=== PATIENT | female | born 1940 | race Caucasian/White ===

== ENCOUNTER 2017-09-07 09:35 | Inpatient (IN) | payer MEDICARE ==
[2017-09-07] VITALS (20 sets, daily range): BP systolic 92–121; BP diastolic 41–57; PULSE 86–96; RESP 18–26; TEMP 97.9–99.1; O2SAT 93–100
[~2017-09-07] VITALS: Ht 160 cm; Wt 61.2 kg
[~2017-09-07 09:35] MED LIST: ATOR40TA PO; CITRTAB8 PO; CLON.5 PO; DILT240C7 PO; ENAL5TAB PO; FISH100020 PO; GABA300C3 PO; GLIP5 PO; HYDR-3534 PO; LOSA50TA PO; OMEP20CA5 PO; PAXI10TA PO; SODI650T PO; TAMO20TA4 PO; TEMA15 PO; VITA200017 PO; [UNRECOGNIZED DRUG - CODE] PO
[2017-09-07] MEDS ORDERED: MORPHINE SULFATE 2 MG/ML INJ IV PUSH ONE (10:15)
[2017-09-07] MEDS ORDERED: ONDANSETRON HCL 4 MG/2 ML VIAL IV PUSH ONE (10:15)
--- NOTE | 2017-09-07 10:29 | PD ---
HPI Chief Complaint: Abnormal Results Time Seen by Provider: 10:01 Travel History International Travel<30 days: No Contact w/Intl Traveler<30days: No Traveled to known affect area: No History of Present Illness HPI The patient 77 and suffers with chronic anemia. Lately she has felt more fatigued than normal and her son notes pallor and that together these symptoms typically are associated with acute anemia. She has chronic bilateral lower leg pain which is again present today. Duration of acute anemia/constitutional time symptoms has been a few days. No fever. Typically blood transfusion effectively treat symptoms. She follows with Dr. Vieyra and Dr. Gomez. Patient reports most recent blood transfusion was over a year ago maybe 2 years ago. She has no abdominal pain. PFSH Past Medical History Anemia: Yes Arthritis: Yes Blood Disorders: Yes (HEREDITARY HEMOGIOTELASITIA) Anxiety: Yes Depression: No Cancer: Yes (LEFT BREAST) Cardiovascular Problems: Yes (AAA STENT) High Cholesterol: Yes Chest Pain: No Congestive Heart Failure: No Diabetes: Yes Diminished Hearing: No Endocrine: Yes Gastrointestinal Disorders: Yes (COLITIS) Genitourinary: No Headaches: Yes (OCCASIONAL HEADACHE) Hepatitis: No Hiatal Hernia: No Hypertension: Yes Immune Disorder: No Musculoskeletal: Yes ( SEVERE ARTHRITIS, FIBROMYALGIA) Neurologic: No Psychiatric: Yes (ANXIETY) Reproductive: No Respiratory: No Myocardial Infarction: No Sickle Cell Disease: No Thyroid Disease: No ?: Not : 3 Para: 2 Miscarriage: 1 Past Surgical History Abdominal Surgery: No AICD: No Appendectomy: Yes Body Medical Devices: FEMORAL STENT RIGHT ; AAA STENT Cardiac Surgery: Yes (02/01 ENDOVASCULAR AAA) Ear Surgery: No Endocrine Surgery: No Eye Surgery: Yes (LEFT CATARACT EXTRACT) Genitourinary Surgery: No Gynecologic Surgery: Yes (HYSTERECTOMY) Hysterectomy: Yes (1979) Joint Replacement: No Oral Surgery: Yes (TONSILLECTOMY) Pacemaker: No Thoracic Surgery: No Other Surgery: Yes (HEMRRHOIDECTOMY ) Social History Alcohol Use: No Tobacco Use: No Substance Use: No Allergies-Medications (Allergen,Severity, Reaction): Coded Allergies: aspirin (Unverified Adverse Reaction, Severe, GI BLEEDING, 09/07/17) diclofenac (Unverified Adverse Reaction, Severe, GI BLEED, 09/07/17) duloxetine (Unverified Adverse Reaction, Severe, SUICIDAL THOUGHTS, ) etodolac (Unverified Adverse Reaction, Severe, GI BLEED, 09/07/17) flurbiprofen (Unverified Adverse Reaction, Severe, GI BLEED, 09/07/17) ibuprofen (Unverified Adverse Reaction, Severe, GI BLEED, 09/07/17) indomethacin (Unverified Adverse Reaction, Severe, GI BLEED, 09/07/17) ketoprofen (Unverified Adverse Reaction, Severe, GI BLEED, 09/07/17) ketorolac (Unverified Adverse Reaction, Severe, GI BLEED, 09/07/17) naproxen (Unverified Adverse Reaction, Severe, GI BLEED, 09/07/17) oxaprozin (Unverified Adverse Reaction, Severe, GI BLEED, 09/07/17) Reported Meds & Prescriptions Reported Meds & Active Scripts Active Reported Hydrocodone-Acetaminophen 7.5 Mg-325 Mg Tab 1 Tab PO Q4H PRN Ambien (Zolpidem Tartrate) 5 Mg Tab 5 Mg PO HS PRN Levemir Inj (Insulin Detemir) 1,000 unit/ 10 ML Vial 14 Units SQ HS Do not mix with any other Insulin. Ditropan (Oxybutynin Chloride) 5 Mg Tab 5 Mg PO DAILY Lisinopril 5 Mg Tab 5 Mg PO HS Metformin (Metformin HCl) 500 Mg Tab 500 Mg PO BIDPC Tamoxifen (Tamoxifen Citrate) 10 Mg Tab 5 Mg PO BID Glipizide 10 Mg Tab 10 Mg PO BIDAC Take 30 minutes before a meal Paroxetine (Paroxetine HCl) 20 Mg Tab 20 Mg PO DAILY Atorvastatin (Atorvastatin Calcium) 40 Mg Tab 40 Mg PO HS Review of Systems Except as stated in HPI: all other systems reviewed are Neg General / Constitutional: No: Fever Physical Exam Narrative GENERAL: 77 yo F, WNWD, NAD, speaking in full sentences pleasant Vital Signs Date Time Temp Pulse Resp B/P (MAP) Pulse Ox O2 Delivery O2 Flow Rate FiO2 09/07/17 10:23 98 2.00 09/07/17 10:23 98 Room Air 09/07/17 09:47 99.1 94 18 116/56 (76) 96 SKIN: Minimal generalized pallor. HEAD: Atraumatic. Normocephalic. EYES: Pupils equal and round. No scleral icterus. No injection or drainage. ENT: No nasal bleeding or discharge. Mucous membranes pink and moist. NECK: Trachea midline. No JVD. CARDIOVASCULAR: Regular rate and rhythm. RESPIRATORY: No accessory muscle use. Clear to auscultation. Breath sounds equal bilaterally. GASTROINTESTINAL: Abdomen soft, non-tender, nondistended. Hepatic and splenic margins not palpable. MUSCULOSKELETAL:No sign DVT. Normal range of motion. No gross deformity. NEUROLOGICAL: Awake and alert. No obvious cranial nerve deficits. Motor grossly within normal limits. Five out of 5 muscle strength in the arms and legs. Normal speech. PSYCHIATRIC: Appropriate mood and affect; insight and judgment normal. Data Data Last Documented VS Vital Signs Date Time Temp Pulse Resp B/P (MAP) Pulse Ox O2 Delivery O2 Flow Rate FiO2 09/07/17 10:23 98 2.00 09/07/17 10:23 Room Air 09/07/17 09:47 99.1 94 18 116/56 (76) Orders Orders Complete Blood Count With Diff (09/07/17 10:03) Comprehensive Metabolic Panel (09/07/17 10:03) Prothrombin Time / Inr (Pt) (09/07/17 10:03) Act Partial Throm Time (Ptt) (09/07/17 10:03) Type And Screen (09/07/17 10:03) Ecg Monitoring (09/07/17 10:03) Iv Access Insert/Monitor (09/07/17 10:03) Oximetry (09/07/17 10:03) Sodium Chloride 0.9% Flush (Ns Flush) (09/07/17 10:15) Morphine Inj (Morphine Inj) (09/07/17 10:15) Ondansetron Inj (Zofran Inj) (09/07/17 10:15) Red Blood Cells (Rbc) (09/07/17 10:47) Sodium Chlor 0.9% 250 Ml Inj (Ns 250 Ml (09/07/17 11:00) Blood Product Administration (09/07/17 10:47) Admit Order (Ed Use Only) (09/07/17 ) Truck Trailer Mechanic / Telemetry CATRACHITO.Q8H (09/07/17 10:55) Vital Signs (Adult) Q4H (09/07/17 10:55) Activity Bed Rest (09/07/17 10:55) Notify Dr: Other (09/07/17 10:55) Labs Laboratory Tests Test 09/07/17 10:24 White Blood Count 14.9 TH/MM3 Corrected White Blood Count 12.3 TH/MM3 Red Blood Count 2.12 MIL/MM3 Hemoglobin 4.3 GM/DL Hematocrit 14.3 % Mean Corpuscular Volume 67.5 FL Mean Corpuscular Hemoglobin 20.4 PG Mean Corpuscular Hemoglobin Concent 30.2 % Red Cell Distribution Width 25.1 % Platelet Count 313 TH/MM3 Mean Platelet Volume 9.1 FL CBC Comment AUTO DIFF Differential Total Cells Counted 100 Neutrophils % (Manual) 78 % Lymphocytes % 16 % Monocytes % 5 % Eosinophils % 1 % Neutrophils # (Manual) 9.6 TH/MM3 Nucleated Red Blood Cells 21 /100 WBC Differential Comment FINAL DIFF MANUAL Platelet Estimate NORMAL Platelet Morphology Comment NORMAL Target Cells 2+ Ovalocytes 1+ Keratocytes 1+ Prothrombin Time 13.6 SEC Prothromb Time International Ratio 1.3 RATIO Activated Partial Thromboplast Time 21.5 SEC Blood Urea Nitrogen 45 MG/DL Creatinine 1.40 MG/DL Random Glucose 136 MG/DL Total Protein 7.1 GM/DL Albumin 2.7 GM/DL Calcium Level 9.1 MG/DL Alkaline Phosphatase 300 U/L Aspartate Amino Transf (AST/SGOT) 284 U/L Alanine Aminotransferase (ALT/SGPT) 209 U/L Total Bilirubin 1.3 MG/DL Sodium Level 134 MEQ/L Potassium Level 4.4 MEQ/L Chloride Level 103 MEQ/L Carbon Dioxide Level 19.5 MEQ/L Anion Gap 12 MEQ/L Estimat Glomerular Filtration Rate 37 ML/MIN MDM Medical Decision Making Medical Screen Exam Complete: Yes Emergency Medical Condition: Yes Medical Record Reviewed: Yes Differential Diagnosis Electrolyte imbalance, metabolic disarray, dehydration, acute anemia Narrative Course CBC & BMP Diagram 09/07/17 10:24 Total Protein 7.1, Albumin 2.7 L, Calcium Level 9.1, Alkaline Phosphatase 300 H , Aspartate Amino Transf (AST/SGOT) 284 H, Alanine Aminotransferase (ALT/SGPT) 209 H, Total Bilirubin 1.3 H In November, about 9 months prior, the patient's hemoglobin was 12. 2 units packed cells ordered here. Case discussed with Dr. serrano for [facility]. We will place admission under his name. The patient will be admitted for acute anemia. She is known to have a history of iron deficiency anemia per records written by Dr. Vieyra as recently as April. Despite the markedly low hemoglobin of 4.2 the patient is hemodynamically normal. There is mild transaminitis of indeterminate etiology as the patient denies abdominal pain. Patient will be admitted to the [facility] stepdown unit with telemetry for transfusion of multiple units of packed cells. Critical Care Narrative Aggregate critical care time was 35 minutes. Time to perform other separately billable procedures was not included in the critical care time. My time did not include minutes spent treating any other patients simultaneously or on activities that did not directly contribute to the patient's treatment. The services I provided to this patient were to treat and/or prevent clinically significant deterioration that could result in: Hemorrhagic shock, cardiopulmonary arrest, multiorgan injury I provided critical care services requiring my management, as noted below: Chart data review, documentation time, medication orders and management, vital sign assessments/reviewing monitor data, ordering and reviewing lab tests, ordering and interpreting/reviewing x-rays and diagnostic studies, care of the patient and discussion of the patient with the admitting physicians. Diagnosis Primary Impression: Anemia Qualified Codes: D50.9 - Iron deficiency anemia, unspecified Additional Impressions: Transaminitis Telangiectasia disorder Admitting Information Admitting Physician Requests: Josesito Colon MD Sep 07, 2017 10:29
[2017-09-07 10:32] LABS: MEAN CELL VOLUME 67.5 FL (80.0-100.0); MEAN CORPUSCULAR HEMOGLOBIN 20.4 PG (27.0-34.0); MEAN CORPUSCULAR HGB CONC 30.2 % (32.0-36.0); MEAN PLATELET VOLUME 9.1 FL (7.0-11.0); PLATELET COUNT 313 TH/MM3 (150-450); RED BLOOD COUNT 2.12 MIL/MM3 (4.00-5.30); RED CELL DISTRIBUTION WIDTH 25.1 % (11.6-17.2); WHITE BLOOD COUNT 14.9 TH/MM3 (4.0-11.0)
[2017-09-07] MEDS ORDERED: AMBI5TAB PO (10:32)
[2017-09-07] MEDS ORDERED: LEVEMIR SQ (10:32)
[2017-09-07] MEDS ORDERED: LISI-519 PO (10:32)
[2017-09-07] MEDS ORDERED: ATOR40TA16 PO (10:32)
[2017-09-07] MEDS ORDERED: PARO20TA2 PO (10:32)
[2017-09-07] MEDS ORDERED: TAMO10TA6 PO (10:32)
[2017-09-07] MEDS ORDERED: GLIP10TA6 PO (10:32)
[2017-09-07] MEDS ORDERED: OXYB5TAB8 PO (10:32)
[2017-09-07] MEDS ORDERED: METF500T PO (10:32)
[2017-09-07] MEDS ORDERED: HYDR-3580 PO (10:32)
[2017-09-07 10:34] LABS: HEMATOCRIT 14.3 % (35.0-46.0); HEMOGLOBIN 4.3 GM/DL (11.6-15.3)
[2017-09-07 10:36] LABS: CHLORIDE 103 MEQ/L (98-107); SODIUM (NA) 134 MEQ/L (136-145)
[2017-09-07 10:39] LABS: CALCIUM 9.1 MG/DL (8.5-10.1)
[2017-09-07 10:40] LABS: ALBUMIN 2.7 GM/DL (3.4-5.0); BICARBONATE 19.5 MEQ/L (21.0-32.0); BLOOD UREA NITROGEN 45 MG/DL (7-18); GLUCOSE,RANDOM 136 MG/DL (74-106); INTERNATIONAL NORMALIZED RATIO 1.3 RATIO; PROTHROMBIN TIME - PATIENT 13.6 SEC (9.8-11.6)
[2017-09-07 10:43] LABS: ALT (GPT) 209 U/L (10-53); AST (GOT) 284 U/L (15-37); GLOMERULAR FILTRATION RATE 37 ML/MIN (>89)
[2017-09-07 10:44] LABS: TOTAL BILIRUBIN ADULT 1.3 MG/DL (0.2-1.0); TOTAL PROTEIN 7.1 GM/DL (6.4-8.2)
[2017-09-07 10:46] LABS: ALKALINE PHOSPHATASE 300 U/L (45-117)
[2017-09-07] MEDS ORDERED: SODIUM CHLOR 0.9% 250 ML INJ 250 ML IV ONE (11:00)
[2017-09-07 11:04] LABS: CORRECTED NUCLEATED RBC 21 /100 WBC (0-0); CORRECTED WBC 12.3 TH/MM3 (4.0-11.0); LYMPHOCYTES 16 % (9-44); MONOCYTES 5 % (0-8); NEUTROPHIL # MANUAL DIFF 9.6 TH/MM3 (1.8-7.7); NUCLEATED RED BLOOD CELL 21 (0-0); POLYS (SEG NEUTROPHILS) 78 % (16-70)
[2017-09-07 11:05] LABS: KERATOCYTES 1+ (NORMAL); OVALOCYTES 1+ (NORMAL); TARGET CELLS 2+ (NORMAL)
[2017-09-07] MEDS ORDERED: FUROSEMIDE 20 MG/2 ML VIAL IV PRN (12:45)
--- NOTE | 2017-09-07 13:33 | MH ---
cc: DAVID GARLAND MD DATE OF ADMISSION 09/07/2017 ADMISSION DIAGNOSIS 1. Severe symptomatic hypochromic, microcytic anemia likely iron deficiency anemia. 2. Abnormal liver function tests probably secondary to her statin drug. 3. She has type 2 diabetes mellitus with diabetic nephropathy. 4. Peripheral artery disease with prior INDUSTRIAL RADIOGRAPHER and stenting of the right common iliac artery in 2009. 5. Prior proximal left SFA stenosis. 6. Hereditary hemorrhagic telangiectasia ([id number]). 7. Hypertension e 8. Hyperlipidemia 9. Stage III chronic kidney disease. 10. History of prior abdominal aortic aneurysm with endovascular graft stent repair on 01/2010. 11. Fibromyalgia 12. Osteoporosis 13. Prior history of ulcerative colitis. 14. History of colon polyps. 15. Osteoarthritis 16. Irritable bowel syndrome 17. History of prior anemias with transfusions in the past that has been followed by Dr. Vieyra. 18. Anxiety 19. Depression 20. History of breast cancer on tamoxifen therapy. This involved the left breast in the past with lumpectomy in 2011 and radiation therapy on tamoxifen therapy. 21. Atherosclerosis of the aorta. 22. Vitamin D deficiency PERTINENT HISTORY This is a 77-year-old white female who came to the emergency room because she has been feeling weaker especially over the last week. Her son noted her to be a little more pale. She has had anemia in the past and has had blood transfusions, but it has been a little over a year since her last blood transfusion. She has been followed by a web merchant, Dr. Vieyra. She denied any actual shortness of breath. No chest pain, just generally weaker when she would walk. She has not had any blood in her stools that she is visibly seeing or black stools. Her stools have been brown. She has had no vomiting or abdominal pain or hematemesis. When she came in the ED, her hemoglobin was low at 4.3 low red cell indices. She is admitted for a blood transfusion. MEDICAL HISTORY As mentioned she has: 1. Type 2 diabetes mellitus with diabetic nephropathy. 2. She has hypertension. 3. Hyperlipidemia 4. Fibromyalgia 5. Anxiety 6. Depression 7. Peripheral artery disease 8. Hereditary hemorrhagic telangiectasia. 9. She has chronic pain and fibromyalgia and osteoarthritis. 10. Irritable bowel syndrome. 11. History of colon polyps. 12. She has had a pancreatic cyst noted on prior imaging. 13. She had breast cancer involving the left breast. 14. Atherosclerosis of the aorta. 15. Vitamin D deficiency. 16. She has had gout in the past. 17. She had degenerative disk disease of her cervical spine. 18. She has had prior anemia. She has osteoarthritis. 19. She has had ulcerative colitis in the past. 20. She has had no heart attack or angina. 21. She had some mitral regurgitation on prior echo. 22. She has had no chronic lung disease, liver disease, thyroid disease or peptic ulcer disease. No stroke or seizure. 23. She has had abdominal aortic aneurysm as mentioned that was repaired endovascularly. 24. She has had macular degeneration in both eyes. 25. She has had a history of herpes zoster and colon polyps. PAST SURGICAL HISTORY 1. She has had an appendectomy. 2. She had a left breast biopsy 02/1912. 3. Bilateral cataract extraction with lens implant. 4. Colonoscopy on 08/22/2007 showed tubular adenoma and erythema throughout the colon. 5. She had the colonoscopy 09/02/2010 that showed colitis. 6. EGD on 09/02/2010 showed gastritis. 7. She has had endovascular repair of the abdominal aortic aneurysm. 8. She has had a hemorrhoidectomy. 9. She has had left breast lumpectomy 04/29/2012. 10. She had a INDUSTRIAL RADIOGRAPHER with stent of the right common iliac. 11. She has had a LUPE and BSO. ALLERGIES CYMBALTA, ASPIRIN AND NSAID's. MEDICATIONS 1. Atorvastatin 40 mg a day 2. Citracal calcium plus D one a day 3. Glipizide 5 mg tablet two twice a day 4. Hydrocodone/acetaminophen 7.5/325 one tablet generally twice a day. 5. Lisinopril 5 mg a day 6. Levemir insulin 8 units at bedtime 7. Metformin 500 mg twice a day 8. Oxybutynin extended release 5 mg a day 9. Paroxetine 20 mg one a day 10. Vitamin D 5000 units a day FAMILY HISTORY Her dad at 86. Mother at 89 of lung cancer. SOCIAL HISTORY She is . She used to work as a teacher. She had quit smoking in 1999 smoked a half-a-pack a day for 20 years prior then, but her son, who is with her today, states he buys her a pack of cigarettes a day now. She apparently has been doing this over the last year. She does not use alcohol. REVIEW OF SYSTEMS GENERAL: With just the generalized weakness. No fever, chills or sweats. HEENT: Without complaints. CARDIOVASCULAR: No chest pain, orthopnea, PND. PULMONARY: No cough, hemoptysis or wheezing. Denies shortness of breath. GI: Has no melena, rectal bleeding, constipation, or diarrhea. No heartburn or ingestion. : She gets some incontinence at times. No dysuria or hematuria. EXTREMITIES: She has had no swelling. No pain in her legs at rest, but in the last few days when she would walk, she would get a little pain in her legs. NEUROLOGIC: Without any motor weakness, sensory loss or confusion. PSYCHIATRIC: Stable. SKIN: Without rash. EXAMINATION This is a pleasant white female in no apparent distress. She is a little pale-appearing. Her O2 sat is 96%, BP 116/56, respirations 18, pulse 94, temperature 99.1. HEENT: TMs clear. Pupils equal. Sclerae nonicteric. Nose without lesion. Mouth without inflammation or lesion. NECK: Without JVD. No bruit. HEART: Regular rate and rhythm with a grade 1/6 systolic murmur in the aortic region. LUNGS: Clear. ABDOMEN: Soft, nontender, no mass. EXTREMITIES: No edema. Pulses 1-1/2+ both feet. SKIN: Negative. NEUROLOGIC: Oriented x3. Motor strength symmetrical, sensation intact. ASSESSMENT As noted. PLAN We will stop her atorvastatin since it is likely causing her elevated liver enzymes. We ordered an iron and TIBC level, but it looks like she probably has iron-deficiency. We will consult her web merchant, Dr. Vieyra. We have gone ahead and ordered four units of packed red blood cells. We will give her SCD's and ARACELIS douglass for DVT prophylaxis. MD LEANDRA Campa/ALONDRA /12:49 PM /1:07 PM
[2017-09-07] MEDS ORDERED: PILL SPLITTER OTHER PRN (15:00)
[2017-09-07] MEDS: glipiZIDE 10 MG TAB PO SCH (16:57)
[2017-09-07 17:25] LABS: % SATURATION IRON PROFILE 2.7 % (20-50); IRON (FE) 10 MCG/DL (50-170); TOTAL IRON BINDING CAPACITY 377 MCG/DL (250-450)
[2017-09-07] MEDS: FOLIC ACID 1 MG TAB PO SCH (18:17)
[2017-09-07] MEDS ORDERED: GLUCAGON 1 MG/ML VIAL OTHER PRN (18:30)
[2017-09-07] MEDS ORDERED: DEXTROSE 50% IN WATER 50 ML VIAL(D50) IV PUSH PRN (18:30)
--- NOTE | 2017-09-07 18:57 | MB ---
cc: ANDRAE GAUTAM DONALD G. MD DATE OF CONSULTATION: 09/07/2017 REASON FOR CONSULTATION: DATE OF : 1940 REFERRING PHYSICIAN: Dr. Jose Muro. CHIEF COMPLAINT: Dr. Muro requested consultation for Ms. Altamirano regarding history of hereditary telangiectasia associated with iron deficiency. HISTORY OF PRESENT ILLNESS Mrs. Altamirano is a 77-year-old woman well-known patient with hereditary telangiectasia recently . She was also seen in hematology clinic for stage I low ER positive breast cancer on adjuvant hormonal therapy with tamoxifen. She was last seen April 16, 2017. Her main problem was associated to her hyperglycemia, poor diabetes, controlled. Her previous labs from November showed normal CBC and a low normal ferritin. She denies any bleeding. She reports feeling well until several weeks prior to her presentation. She was having some back pain and neck pain. She has some achiness, denies any fevers. She has lost some weight. She attributes that to the difficulty in the diabetic control. She is on insulin now. She denies any melena or bright red blood per rectum. She has no GI symptoms. She said that she will refuse a colonoscopy. She is certain that she does not have any GI blood loss. She has not been taking any NSAIDs or aspirin. The rest of her review of systems is negative. She is feeling weak and was brought in by her son. She was found to have a hemoglobin of 4.3. She was otherwise hemodynamically stable. Her white count is elevated at 14.9, platelet count is normal. Iron studies are consistent with iron deficiency with a saturation of 2.7, serum iron of 10. Ferritin is pending. Her BUN and creatinine are increased. Glucose is better controlled at 136. There is new liver function abnormality with a bilirubin of 1.3. LDH has been requested. She denies any alcohol use. She is receiving her first unit of blood. She was found to have positive antibody screen. She has anti-c antibody. She has four units of blood reserved for her. She is tolerating the first unit of blood well. PAST MEDICAL HISTORY: 1. Hereditary telangiectasia. 2. ER positive left breast cancer. 3. Iron deficiency anemia. 4. Fibromyalgia. 5. Hemorrhoids. 6. Depression. 7. Chronic renal insufficiency. 8. Anxiety. 9. Arthritis. PAST SURGICAL HISTORY: 1. Appendectomy. 2. Hysterectomy. 3. Tonsillectomy. 4. Left breast lumpectomy, sentinel node biopsy. 5. Colonoscopy. ALLERGIES: ASPIRIN. CYMBALTA FAMILY HISTORY: Mother age 89, history of lung cancer, and of the lung cancer. Father age 86 with an aneurysm. SOCIAL HISTORY She is . Quit smoking 10 years ago. She has a 20 pack-year smoking history. Denies any alcohol use. PHYSICAL EXAMINATION VITAL SIGNS: Temperature 98.1, heart rate 90, respiratory 21, blood pressure 109/53. GENERAL: Mrs. Altamirano is a pale-appearing well-developed woman who looks thinner than previous exam. HEENT: Her pupils are round, reactive to light and accommodation. Oropharynx is clear. NECK: Neck is supple. LUNGS: Lungs were clear. CARDIOVASCULAR: Exam reveals normal rate, rhythm. ABDOMEN: Abdomen is benign. EXTREMITIES: Lower extremities with no edema. NEUROLOGIC: Exam is nonfocal. She is awake, alert, oriented x3. LABORATORY DATA: Significant for leukocytosis, white blood cell count 14.9, hemoglobin of 4.3. LDH is pending. AST/ALT are elevated. Alkaline phosphatase is elevated. Total bilirubin 1.3. ASSESSMENT AND PLAN: Mrs. Altamirano is a 77 year-old woman with hereditary telangiectasia and history of GI bleeding. She had subsequent iron deficiency that was treated. She is also followed in the hematology clinic for stage I, low ER positive breast cancer. She is on adjuvant hormonal therapy with tamoxifen. She has had no evidence of recurrence in terms of her breast cancer. We discussed the possible GI bleeding. It is not clear what the precipitating event was. I suspect that her iron stores were low back in November. There has been progressive loss of iron which resulted in a hemoglobin of 4.3. She tolerated a slow decrease in her hemoglobin and suggests that the iron loss is gradual. LDH and reticulocyte count will be checked. She describes myalgias, arthralgias, back pain. Will review if this is exanthem or manifestation of such. I concur with supportive transfusion. She is being transfused her first unit of blood. Historically she has responded to iron infusion in the past. Will try to see if we could avoid second, third and fourth unit of blood. It is available for her should it be necessary. She is hemodynamically stable and I anticipate that she would respond promptly to parenteral iron therapy which is ordered tonight. To optimize the hematopoiesis, B12, folate is also administered. Will monitor for any signs of bleeding. Ultrasound of the liver will be obtained. Bilirubin comprehensive panel will be checked. Interested to review the liver as the albumin is decreased. The liver functions are elevated. There is some mild prolongation of her PT. Her questions are answered to her satisfaction. Andrae Gautam MD RAD/KANDY /6:03 PM /6:29 PM
[2017-09-07 19:53] LABS: FERRITIN 15 NG/ML (8-252)
[2017-09-07] MEDS: IRON SUCROSE INJ 100 MG in SODIUM CHLORIDE 0.9% INJ 100 ML IV SCH (19:53)
[2017-09-07] MEDS ORDERED: CYANOCOBALAMIN 1000 MCG/ML VIAL SQ ONE (20:00)
[2017-09-07] MEDS: INSULIN NovoLIN REGULAR SUPPLEMENTAL SCALE SQ SCH (20:05)
[2017-09-07] MEDS: INSULIN DETEMIR 100 UNITS/ML VIAL SQ SCH (20:06)
[2017-09-07] MEDS: LISINOPRIL 5 MG TAB PO SCH (20:06)
[2017-09-07] MEDS: PHYTONADIONE 5 MG TAB PO SCH (20:46)
[2017-09-07] MEDS ORDERED: TAMOXIFEN CITRATE 10 MG TAB PO SCH (21:00)
[2017-09-07] MEDS: ACETAMINOPHEN/HYDROcodone 325 MG/7.5 MG TAB PO PRN (22:57)
[2017-09-08] VITALS (24 sets, daily range): BP systolic 90–127; BP diastolic 45–81; PULSE 82–91; RESP 17–28; TEMP 97.7–98.7; O2SAT 95–99
[2017-09-08 05:28] LABS: CALCIUM 8.6 MG/DL (8.5-10.1)
[2017-09-08 05:29] LABS: ALBUMIN 2.7 GM/DL (3.4-5.0); BICARBONATE 23.6 MEQ/L (21.0-32.0)
[2017-09-08 05:31] LABS: DIRECT BILIRUBIN ADULT 0.6 MG/DL (0.0-0.2)
[2017-09-08 05:32] LABS: CREATININE 1.5 MG/DL (0.50-1.00)
[2017-09-08 05:33] LABS: INDIRECT BILIRUBIN 0.4 MG/DL (0.0-0.8)
[2017-09-08 05:35] LABS: MEAN CELL VOLUME 71.3 FL (80.0-100.0); MEAN CORPUSCULAR HEMOGLOBIN 20.9 PG (27.0-34.0); MEAN PLATELET VOLUME 11.6 FL (7.0-11.0); PLATELET COUNT 350 TH/MM3 (150-450); RED BLOOD COUNT 2.71 MIL/MM3 (4.00-5.30); RED CELL DISTRIBUTION WIDTH 24.5 % (11.6-17.2); WHITE BLOOD COUNT 17.4 TH/MM3 (4.0-11.0)
[2017-09-08 05:36] LABS: MEAN CORPUSCULAR HGB CONC 29.3 % (32.0-36.0)
[2017-09-08 05:38] LABS: HEMATOCRIT 19.3 % (35.0-46.0); HEMOGLOBIN 5.7 GM/DL (11.6-15.3)
--- NOTE | 2017-09-08 06:59 | HHI.PR ---
Subjective Remarks No abdominal pain. No shortness of breath. Seen by hematology and is giving iron infusions primarily to correct her anemia. One unit of blood given yesterday. Objective Vitals Vital Signs Date Time Temp Pulse Resp B/P (MAP) Pulse Ox O2 Delivery O2 Flow Rate FiO2 09/08/17 06:19 90 09/08/17 04:00 88 09/08/17 03:00 97.7 86 17 99/45 (63) 97 09/08/17 03:00 89 09/08/17 02:00 86 09/08/17 00:00 84 09/08/17 00:00 16 09/07/17 23:35 91 25 101/52 (68) 93 09/07/17 23:19 92 09/07/17 22:30 94 23 104/48 (66) 97 09/07/17 21:00 93 09/07/17 20:32 96 09/07/17 19:22 98.3 86 26 105/52 (69) 09/07/17 19:00 90 09/07/17 18:00 86 09/07/17 17:00 88 09/07/17 16:00 88 09/07/17 15:50 98.1 90 21 109/53 (71) 09/07/17 15:45 97.9 92 25 95/46 (62) 99 09/07/17 15:40 90 25 92/41 (58) 09/07/17 15:35 98.5 88 19 102/50 (67) 99 09/07/17 15:00 90 09/07/17 14:00 86 09/07/17 12:00 88 09/07/17 11:41 98.3 90 18 121/57 (78) 100 09/07/17 11:41 91 09/07/17 10:23 98 2.00 09/07/17 10:23 98 Room Air 09/07/17 09:47 99.1 94 18 116/56 (76) 96 Result Diagram: 09/08/1742109/08/17421 Other Results Laboratory Tests Test 09/07/17 10:24 09/08/17 04:22 White Blood Count 14.9 TH/MM3 17.4 TH/MM3 Corrected White Blood Count 12.3 TH/MM3 Red Blood Count 2.12 MIL/MM3 2.71 MIL/MM3 Hemoglobin 4.3 GM/DL 5.7 GM/DL Hematocrit 14.3 % 19.3 % Mean Corpuscular Volume 67.5 FL 71.3 FL Mean Corpuscular Hemoglobin 20.4 PG 20.9 PG Mean Corpuscular Hemoglobin Concent 30.2 % 29.3 % Red Cell Distribution Width 25.1 % 24.5 % Platelet Count 313 TH/MM3 350 TH/MM3 Mean Platelet Volume 9.1 FL 11.6 FL CBC Comment AUTO DIFF AUTO DIFF Differential Total Cells Counted 100 Neutrophils % (Manual) 78 % Lymphocytes % 16 % Monocytes % 5 % Eosinophils % 1 % Neutrophils # (Manual) 9.6 TH/MM3 Nucleated Red Blood Cells 21 /100 WBC Differential Comment FINAL DIFF MANUAL Platelet Estimate NORMAL Platelet Morphology Comment NORMAL Target Cells 2+ Ovalocytes 1+ Keratocytes 1+ Prothrombin Time 13.6 SEC Prothromb Time International Ratio 1.3 RATIO Activated Partial Thromboplast Time 21.5 SEC Blood Urea Nitrogen 45 MG/DL 51 MG/DL Creatinine 1.40 MG/DL 1.50 MG/DL Random Glucose 136 MG/DL 54 MG/DL Total Protein 7.1 GM/DL 7.0 GM/DL Albumin 2.7 GM/DL 2.7 GM/DL Calcium Level 9.1 MG/DL 8.6 MG/DL Alkaline Phosphatase 300 U/L 363 U/L Aspartate Amino Transf (AST/SGOT) 284 U/L 462 U/L Alanine Aminotransferase (ALT/SGPT) 209 U/L 322 U/L Total Bilirubin 1.3 MG/DL 1.0 MG/DL Sodium Level 134 MEQ/L 133 MEQ/L Potassium Level 4.4 MEQ/L 3.8 MEQ/L Chloride Level 103 MEQ/L 103 MEQ/L Carbon Dioxide Level 19.5 MEQ/L 23.6 MEQ/L Anion Gap 12 MEQ/L 6 MEQ/L Estimat Glomerular Filtration Rate 37 ML/MIN 34 ML/MIN Iron Level 10 MCG/DL Total Iron Binding Capacity 377 MCG/DL Percent Iron Saturation 2.7 % Ferritin 15 NG/ML Lactate Dehydrogenase 673 U/L Direct Bilirubin 0.6 MG/DL Indirect Bilirubin 0.4 MG/DL Objective Remarks Exam: Pleasant female in no distress. 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 An ultrasound of the abdomen ordered for today. Continue SCD's/ARACELIS's for DVT prophylaxis. Monitor her blood sugar. Her Atorvastatin was stopped on admission because of elevated liver enzymes. Jose Muro MD Sep 08, 2017 06:59
[2017-09-08] MEDS: glipiZIDE 10 MG TAB PO SCH ×2 (07:00→17:07)
[2017-09-08 07:23] LABS: CORRECTED NUCLEATED RBC 30 /100 WBC (0-0); CORRECTED WBC 13.4 TH/MM3 (4.0-11.0); KERATOCYTES 1+ (NORMAL); LYMPHOCYTES 14 % (9-44); MONOCYTES 6 % (0-8); NEUTROPHIL # MANUAL DIFF 10.6 TH/MM3 (1.8-7.7); NUCLEATED RED BLOOD CELL 30 (0-0); OVALOCYTES 1+ (NORMAL); POLYS (SEG NEUTROPHILS) 79 % (16-70); TARGET CELLS 2+ (NORMAL)
[2017-09-08] MEDS: INSULIN NovoLIN REGULAR SUPPLEMENTAL SCALE SQ SCH ×4 (08:00→19:55)
[2017-09-08] MEDS ORDERED: diphenhydrAMINE HCL 25 MG CAP PO PRN (08:15)
[2017-09-08] MEDS: PARoxetine HCL 20 MG TAB PO SCH (08:37)
[2017-09-08] MEDS: OXYBUTYNIN CHLORIDE 5 MG TAB PO SCH (08:37)
[2017-09-08] MEDS: FOLIC ACID 1 MG TAB PO SCH (08:37)
--- NOTE | 2017-09-08 09:10 | RADRPT ---
EXAM DATE/TIME: 09/08/2017 08:18 [facility] COMPARISON: No previous studies available for comparison. INDICATIONS : Elevated liver function tests. MEDICAL HISTORY : AAA. Colitis. GERD. IBS. Arthritis. Fibromyalgia. Hemogiotelesitia. Hemorrhagic Telangiectasia. Left breast cancer. SURGICAL HISTORY : Appendectomy. Hysterectomy. Tonsillectomy. AAA stent. Right femoral stent. ENCOUNTER: Initial ACUITY: 1 day PAIN SCORE: 0/10 LOCATION: Bilateral upper quadrant MEASUREMENTS: LIVER: 15.7 cm length COMMON DUCT: 5 mm RIGHT KIDNEY: 10.7 x 5.1 x 4.8 cm SPLEEN: not visualized. cm length FINDINGS: LIVER: Mild diffusely increased hepatic echogenicity without volume loss, mass or intrahepatic ductal dilata tion. COMMON DUCT: No intraluminal mass or stone visualized. GALLBLADDER: Subtle gallbladder wall prominence with very trace pericholecystic fluid. No stones or sonographic Mu rphy sign. PANCREAS: The visualized portions are within normal limits. RIGHT KIDNEY: Slight increased cortical echogenicity. No hydronephrosis, mass or stone. SPLEEN: No focal lesion. CONCLUSION: 1. Mildly increased diffuse hepatic echogenicity without volume loss which may reflect medical liver disease versus hepatic steatosis. 2. Mild gallbladder wall thickening with very trace pericholecystic fluid. This can be routinely seen in patients with chronic liver disease although this reduces ultrasound sensitivity for early acute cholecystitis. If there is significant concern regarding acute cholecystitis, consider HIDA scan to e valuate for cystic duct patency. 3. Slight increased right renal cortical echogenicity which may reflect medical renal disease. Liu Gregorio MD on September 08, 2017 at 9:03 Board Certified Radiologist. This report was verified electronically.
[2017-09-08 09:51] LABS: RETIC # 91.3 MIL/L (20.0-150.0); RETIC % 3.6 % (0.4-3.0)
[2017-09-08] MEDS: PHYTONADIONE 5 MG TAB PO SCH (09:52)
[2017-09-08] MEDS: ACETAMINOPHEN/HYDROcodone 325 MG/7.5 MG TAB PO PRN ×2 (12:07→21:39)
[2017-09-08 14:58] LABS: HEMATOCRIT 22.9 % (35.0-46.0); HEMOGLOBIN 7.2 GM/DL (11.6-15.3)
--- NOTE | 2017-09-08 17:41 | PD.ONC.PN ---
Subjective Subjective Remarks i am feeling better. denies any bleeding Objective Data Date Time Temp Pulse Resp B/P (MAP) Pulse Ox O2 Delivery O2 Flow Rate FiO2 09/08/17 14:58 87 20 95/50 (65) 99 09/08/17 14:00 89 09/08/17 13:07 18 09/08/17 12:00 86 09/08/17 11:00 106/54 (71) 09/08/17 10:30 116/81 (93) 09/08/17 10:00 87 09/08/17 09:45 98.5 91 28 109/58 95 09/08/17 09:30 98.5 85 20 95/66 95 09/08/17 09:12 98.7 88 20 127/57 95 09/08/17 09:07 97 Nasal Cannula 2.00 09/08/17 08:00 89 09/08/17 07:00 98.7 88 20 127/57 (80) 95 09/08/17 06:19 90 09/08/17 04:00 88 09/08/17 03:00 97.7 86 17 99/45 (63) 97 09/08/17 03:00 89 09/08/17 02:00 86 09/08/17 00:00 84 09/07/17 23:35 91 25 101/52 (68) 93 09/07/17 23:19 92 09/07/17 22:30 94 23 104/48 (66) 97 09/07/17 21:00 93 09/07/17 20:32 96 09/07/17 19:22 98.3 86 26 105/52 (69) 09/07/17 19:00 90 09/07/17 18:00 86 09/08/17 09/08/17 09/08/17 07:00 15:00 23:00 Intake Total 600 ml Balance 600 ml Result Diagram: 09/08/17 1350 09/08/17 7192 Laboratory Results Laboratory Tests Test 09/08/17 04:22 09/08/17 13:50 White Blood Count 17.4 TH/MM3 Corrected White Blood Count 13.4 TH/MM3 Red Blood Count 2.71 MIL/MM3 Hemoglobin 5.7 GM/DL 7.2 GM/DL Hematocrit 19.3 % 22.9 % Mean Corpuscular Volume 71.3 FL Mean Corpuscular Hemoglobin 20.9 PG Mean Corpuscular Hemoglobin Concent 29.3 % Red Cell Distribution Width 24.5 % Platelet Count 350 TH/MM3 Mean Platelet Volume 11.6 FL CBC Comment AUTO DIFF Differential Total Cells Counted 100 Neutrophils % (Manual) 79 % Lymphocytes % 14 % Monocytes % 6 % Eosinophils % 1 % Neutrophils # (Manual) 10.6 TH/MM3 Nucleated Red Blood Cells 30 /100 WBC Differential Comment FINAL DIFF MANUAL Platelet Estimate NORMAL Platelet Morphology Comment NORMAL Target Cells 2+ Ovalocytes 1+ Keratocytes 1+ Reticulocyte Count 3.6 % Absolute Reticulocyte Count 91.3 MIL/L Blood Urea Nitrogen 51 MG/DL Creatinine 1.50 MG/DL Random Glucose 54 MG/DL Total Protein 7.0 GM/DL Albumin 2.7 GM/DL Calcium Level 8.6 MG/DL Alkaline Phosphatase 363 U/L Aspartate Amino Transf (AST/SGOT) 462 U/L Alanine Aminotransferase (ALT/SGPT) 322 U/L Total Bilirubin 1.0 MG/DL Direct Bilirubin 0.6 MG/DL Sodium Level 133 MEQ/L Potassium Level 3.8 MEQ/L Chloride Level 103 MEQ/L Carbon Dioxide Level 23.6 MEQ/L Anion Gap 6 MEQ/L Estimat Glomerular Filtration Rate 34 ML/MIN Indirect Bilirubin 0.4 MG/DL Imaging Studies Last 24 hours Impressions Liver Ultrasound 09/08/17 0600 Signed Impressions: Service Date/Time: Friday, September 08, 2017 08:18 - CONCLUSION: 1. Mildly increased diffuse hepatic echogenicity without volume loss which may reflect medical liver disease versus hepatic steatosis. 2. Mild gallbladder wall thickening with very trace pericholecystic fluid. This can be routinely seen in patients with chronic liver disease although this reduces ultrasound sensitivity for early acute cholecystitis. If there is significant concern regarding acute cholecystitis, consider HIDA scan to evaluate for cystic duct patency. 3. Slight increased right renal cortical echogenicity which may reflect medical renal disease. Liu Gregorio MD Administered Medications Medications (Trade) Dose Ordered Sig/Fatoumata Route PRN Reason Start Time Stop Time Status Last Admin Dose Admin Glipizide (Glucotrol) 10 mg BIDAC PO 09/07/17 16:00 09/08/17 17:07 Acetaminophen/ Hydrocodone Bitart (Lamar 7.5-325 Mg) 1 tab Q4H PRN PO PAIN SCALE 1 TO 10 09/07/17 12:45 09/08/17 12:07 Insulin Detemir (Levemir Inj) 8 units HS SQ 09/07/17 21:00 09/07/17 20:06 Lisinopril (Prinivil) 5 mg HS PO 09/07/17 21:00 09/07/17 20:06 Oxybutynin Chloride (Ditropan) 5 mg DAILY PO 09/08/17 09:00 09/08/17 08:37 Paroxetine HCl (Paxil) 20 mg DAILY PO 09/08/17 09:00 09/08/17 08:37 Iron Sucrose 100 mg/Sodium Chloride 105 ml @ 105 mls/hr DAILY@1999 IV 09/07/17 20:00 09/09/17 20:59 09/07/17 19:53 Folic Acid (Folate) 1 mg DAILY PO 09/07/17 19:00 09/08/17 08:37 Phytonadione (Mephyton) 5 mg DAILY PO 09/07/17 20:00 09/09/17 09:01 09/08/17 09:52 Insulin Human Regular (NovoLIN R SUPPLEMENTAL SCALE) 1 ACHS SLIDING SCALE SQ 09/07/17 21:00 09/08/17 12:13 Objective Remarks GENERAL: Well-nourished, well-developed patient. SKIN: Warm and dry. HEAD: Normocephalic. EYES: No scleral icterus. No injection or drainage. NECK: Supple, trachea midline. No JVD or lymphadenopathy. LYMPHATIC: No adenopathy. CARDIOVASCULAR: Regular rate and rhythm without murmurs. RESPIRATORY: Breath sounds equal bilaterally. No accessory muscle use. GASTROINTESTINAL: Abdomen soft, non-tender, nondistended. EXTREMITIES: No cyanosis, or edema. NEUROLOGICAL: No obvious focal deficit. Awake, alert, and oriented x3. PSYCHIATRIC: Appropriate mood and affect; insight and judgment normal. Assessment/Plan Problem List: (1) Anemia ICD Codes: D64.9 - Anemia, unspecified Status: Acute Plan: Pt has Iron Def Anemia. Ferritin 15 Pt had so far 3 units of PRBC She is on daily iron sucrose x 3 days monitor cbc daily. will follow (2) Telangiectasia disorder ICD Codes: I78.9 - Disease of capillaries, unspecified Status: Acute Plan: observe Problem Qualifiers (1) Anemia: Qualified Codes: D50.9 - Iron deficiency anemia, unspecified Riley Alicia MD Sep 08, 2017 17:41
[2017-09-08] MEDS: IRON SUCROSE INJ 100 MG in SODIUM CHLORIDE 0.9% INJ 100 ML IV SCH (19:55)
[2017-09-08] MEDS: INSULIN DETEMIR 100 UNITS/ML VIAL SQ SCH (19:55)
[2017-09-08] MEDS: LISINOPRIL 5 MG TAB PO SCH (19:55)
[2017-09-09] VITALS (14 sets, daily range): BP systolic 89–128; BP diastolic 40–60; PULSE 62–110; RESP 14–31; TEMP 98–99; O2SAT 95–98
[2017-09-09 05:00] LABS: HEMATOCRIT 24.4 % (35.0-46.0); HEMOGLOBIN 7.4 GM/DL (11.6-15.3); MEAN CELL VOLUME 75.5 FL (80.0-100.0); MEAN CORPUSCULAR HEMOGLOBIN 22.9 PG (27.0-34.0); MEAN CORPUSCULAR HGB CONC 30.4 % (32.0-36.0); MEAN PLATELET VOLUME 11.7 FL (7.0-11.0); PLATELET COUNT 350 TH/MM3 (150-450); RED BLOOD COUNT 3.23 MIL/MM3 (4.00-5.30); RED CELL DISTRIBUTION WIDTH 24.4 % (11.6-17.2); WHITE BLOOD COUNT 16.5 TH/MM3 (4.0-11.0)
[2017-09-09 05:11] LABS: CALCIUM 8.3 MG/DL (8.5-10.1)
[2017-09-09 05:12] LABS: ALBUMIN 2.4 GM/DL (3.4-5.0); BICARBONATE 23.1 MEQ/L (21.0-32.0)
[2017-09-09 05:24] LABS: CREATININE 1.1 MG/DL (0.50-1.00); DIRECT BILIRUBIN ADULT 0.4 MG/DL (0.0-0.2); INDIRECT BILIRUBIN 0.4 MG/DL (0.0-0.8); TOTAL BILIRUBIN ADULT 0.8 MG/DL (0.2-1.0); TOTAL PROTEIN 6.7 GM/DL (6.4-8.2)
[2017-09-09 05:39] LABS: CORRECTED NUCLEATED RBC 20 /100 WBC (0-0); CORRECTED WBC 13.8 TH/MM3 (4.0-11.0); LYMPHOCYTES 13 % (9-44); MONOCYTES 7 % (0-8); NEUTROPHIL # MANUAL DIFF 10.8 TH/MM3 (1.8-7.7); NUCLEATED RED BLOOD CELL 20 (0-0); POLYS (SEG NEUTROPHILS) 78 % (16-70)
--- NOTE | 2017-09-09 06:31 | HHI.PR ---
Subjective Remarks No complaints. Objective Vitals Vital Signs Date Time Temp Pulse Resp B/P (MAP) Pulse Ox O2 Delivery O2 Flow Rate FiO2 09/09/17 06:05 68 09/09/17 04:00 62 09/09/17 03:15 80 23 114/54 (74) 96 09/09/17 03:10 78 14 89/40 (56) 95 09/09/17 02:05 74 09/09/17 00:20 98.6 82 22 108/55 (72) 95 09/09/17 00:06 82 09/08/17 23:10 82 24 108/55 (72) 09/08/17 22:59 16 09/08/17 22:17 84 09/08/17 21:57 86 26 117/56 (76) 98 09/08/17 20:05 87 09/08/17 19:33 84 09/08/17 19:10 86 22 94/46 (62) 98 09/08/17 16:00 88 09/08/17 14:58 87 20 95/50 (65) 99 09/08/17 14:00 89 09/08/17 12:00 86 09/08/17 11:00 106/54 (71) 09/08/17 10:30 116/81 (93) 09/08/17 10:00 87 09/08/17 09:45 98.5 91 28 109/58 95 09/08/17 09:30 98.5 85 20 95/66 95 09/08/17 09:12 98.7 88 20 127/57 95 09/08/17 09:07 97 Nasal Cannula 2.00 09/08/17 08:00 89 09/08/17 07:00 98.7 88 20 127/57 (80) 95 Result Diagram: 09/09/17 0423 09/09/17 0423 Other Results Laboratory Tests Test 09/07/17 10:24 09/08/17 04:22 09/08/17 13:50 09/09/17 04:23 White Blood Count 14.9 TH/MM3 17.4 TH/MM3 16.5 TH/MM3 Corrected White Blood Count 12.3 TH/MM3 13.4 TH/MM3 13.8 TH/MM3 Red Blood Count 2.12 MIL/MM3 2.71 MIL/MM3 3.23 MIL/MM3 Hemoglobin 4.3 GM/DL 5.7 GM/DL 7.2 GM/DL 7.4 GM/DL Hematocrit 14.3 % 19.3 % 22.9 % 24.4 % Mean Corpuscular Volume 67.5 FL 71.3 FL 75.5 FL Mean Corpuscular Hemoglobin 20.4 PG 20.9 PG 22.9 PG Mean Corpuscular Hemoglobin Concent 30.2 % 29.3 % 30.4 % Red Cell Distribution Width 25.1 % 24.5 % 24.4 % Platelet Count 313 TH/MM3 350 TH/MM3 350 TH/MM3 Mean Platelet Volume 9.1 FL 11.6 FL 11.7 FL CBC Comment AUTO DIFF AUTO DIFF AUTO DIFF Differential Total Cells Counted 100 100 100 Neutrophils % (Manual) 78 % 79 % 78 % Lymphocytes % 16 % 14 % 13 % Monocytes % 5 % 6 % 7 % Eosinophils % 1 % 1 % 2 % Neutrophils # (Manual) 9.6 TH/MM3 10.6 TH/MM3 10.8 TH/MM3 Nucleated Red Blood Cells 21 /100 WBC 30 /100 WBC 20 /100 WBC Differential Comment FINAL DIFF MANUAL FINAL DIFF MANUAL FINAL DIFF MANUAL Platelet Estimate NORMAL NORMAL NORMAL Platelet Morphology Comment NORMAL NORMAL ENLARGED Target Cells 2+ 2+ Ovalocytes 1+ 1+ Keratocytes 1+ 1+ Prothrombin Time 13.6 SEC Prothromb Time International Ratio 1.3 RATIO Activated Partial Thromboplast Time 21.5 SEC Blood Urea Nitrogen 45 MG/DL 51 MG/DL 36 MG/DL Creatinine 1.40 MG/DL 1.50 MG/DL 1.10 MG/DL Random Glucose 136 MG/DL 54 MG/DL 108 MG/DL Total Protein 7.1 GM/DL 7.0 GM/DL 6.7 GM/DL Albumin 2.7 GM/DL 2.7 GM/DL 2.4 GM/DL Calcium Level 9.1 MG/DL 8.6 MG/DL 8.3 MG/DL Alkaline Phosphatase 300 U/L 363 U/L 434 U/L Aspartate Amino Transf (AST/SGOT) 284 U/L 462 U/L 492 U/L Alanine Aminotransferase (ALT/SGPT) 209 U/L 322 U/L 408 U/L Total Bilirubin 1.3 MG/DL 1.0 MG/DL 0.8 MG/DL Sodium Level 134 MEQ/L 133 MEQ/L 138 MEQ/L Potassium Level 4.4 MEQ/L 3.8 MEQ/L 3.7 MEQ/L Chloride Level 103 MEQ/L 103 MEQ/L 108 MEQ/L Carbon Dioxide Level 19.5 MEQ/L 23.6 MEQ/L 23.1 MEQ/L Anion Gap 12 MEQ/L 6 MEQ/L 7 MEQ/L Estimat Glomerular Filtration Rate 37 ML/MIN 34 ML/MIN 48 ML/MIN Iron Level 10 MCG/DL Total Iron Binding Capacity 377 MCG/DL Percent Iron Saturation 2.7 % Ferritin 15 NG/ML Lactate Dehydrogenase 673 U/L Reticulocyte Count 3.6 % Absolute Reticulocyte Count 91.3 MIL/L Direct Bilirubin 0.6 MG/DL 0.4 MG/DL Indirect Bilirubin 0.4 MG/DL 0.4 MG/DL Imaging Last Impressions Liver Ultrasound 09/08/17 0600 Signed Impressions: Service Date/Time: Wednesday, September 08, 2017 08:18 - CONCLUSION: 1. Mildly increased diffuse hepatic echogenicity without volume loss which may reflect medical liver disease versus hepatic steatosis. 2. Mild gallbladder wall thickening with very trace pericholecystic fluid. This can be routinely seen in patients with chronic liver disease although this reduces ultrasound sensitivity for early acute cholecystitis. If there is significant concern regarding acute cholecystitis, consider HIDA scan to evaluate for cystic duct patency. 3. Slight increased right renal cortical echogenicity which may reflect medical renal disease. Liu Gregorio MD Objective Remarks Exam: Pleasant female in no distress. 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 I ordered a HIDA scan as per radiology recommendations. I will consult gastroenterology in regard to her rising liver function tests. I also order a hepatitis profile. Continue SCD's/ARACELIS's for DVT prophylaxis. Monitor her blood sugar. Her Atorvastatin was stopped on admission because of elevated liver enzymes. Jose Muro MD Sep 09, 2017 06:31
[2017-09-09] MEDS: glipiZIDE 10 MG TAB PO SCH ×2 (07:00→17:34)
[2017-09-09] MEDS: INSULIN NovoLIN REGULAR SUPPLEMENTAL SCALE SQ SCH ×4 (08:00→20:22)
[2017-09-09] MEDS: SODIUM CHLORIDE 0.9% FLUSH 10 ML FLUSH IVF PRN (08:11)
[2017-09-09] MEDS: PHYTONADIONE 5 MG TAB PO SCH (08:11)
[2017-09-09] MEDS: OXYBUTYNIN CHLORIDE 5 MG TAB PO SCH (08:11)
[2017-09-09] MEDS: FOLIC ACID 1 MG TAB PO SCH (08:11)
[2017-09-09] MEDS: PARoxetine HCL 20 MG TAB PO SCH (08:11)
[2017-09-09] MEDS ORDERED: SINCALIDE 5 MCG/5 ML VIAL IV ONE (12:48)
--- NOTE | 2017-09-09 14:42 | RADRPT ---
EXAM DATE/TIME: 09/09/2017 11:20 [facility] COMPARISON: No previous studies available for comparison. INDICATIONS : Right upper quadrant pain for one day. Abnormal ultrasound. DOSE: 4.1 mCi Tc99m Mebrofenin IV MEDICATION: 1.16 mcg Cholecystokinin IV; No symptomatic response. Cholecystokinin was administered by slow infusion over 8 minutes beginning at 60 minutes. MEDICAL HISTORY : Diabetes mellitus type 2. Carcinoma, breast. SURGICAL HISTORY : Appendectomy. Hysterectomy. Tonsillectomy. ENCOUNTER: Initial ACUITY: 1 day PAIN SCALE: 1/10 LOCATION: Right upper quadrant TECHNIQUE: Following the intravenous administration of radiotracer, dynamic sequential image were performed with continuous acquisition. Time-activity curves were generated. FINDINGS: HEPATIIC KINETICS: There is some delay in clearance of radiotracer from the blood pool indicating hepatocellular dysfunc tion BILIARY CLEARANCE: Activity is first seen in the extrahepatic biliary system at 10 minutes. There is normal excretion i nto the small bowel. GALLBLADDER: Activity is first seen in the gallbladder at 15 minutes. POST CHOLECYSTOKININ: After Cholecystokinin administration, there is prompt emptying of the gallbladder with a 90 % ejectio n fraction. Common bile duct kinetics are normal and there is no evidence of biliary obstruction. BILIARY ENTERIC REFLUX: Prominent bile gastric reflux. CLINICAL: The patient was asymptomatic after Cholecystokinin administration. CONCLUSION: Hepatocellular dysfunction Bile gastric reflux. No evidence of biliary obstruction or acute cholecystitis Parviz Esposito MD on September 09, 2017 at 14:15 Board Certified Radiologist. This report was verified electronically.
--- NOTE | 2017-09-09 19:25 | PD.CONS ---
HPI History of Present Illness This is a 77 year old female who was admitted to the hospital through the ER. She reported to the ER with history of progressively worsening weakness and fatigue for the last 1 week. Labs done in the ER showed a hemoglobin of 4.3. Labs also showed abnormal liver panel consisting of elevated AST, ALT and alkaline phosphatase. On direct questioning she denies any history of jaundice pruritus ascites edema. She gives no history of hematemesis and melena hematochezia. She also denies any abdominal pain nausea vomiting heartburn dysphagia constipation diarrhea anorexia or weight loss. Patient gives past history of chronic anemia requiring blood transfusion. She has been told to have history of heriditary telangiectasia involving the GI tract, ulcerative colitis, colon polyps. PFSH Past Medical History Past medical history diabetes hypertension hyperlipidemia depression anxiety neurosis peripheral vascular disease pancreatic cyst colon polyps,HHT, gout and ulcerative colitis Past Surgical History Patient is status post appendectomy lumpectomy in the left breast for l breast cancer, EGD in 2010, colonoscopy in 2007, endovascular repair for aortic aneurysm, total abdominal hysterectomy and bilateral salpingo-oophorectomy Coded Allergies: aspirin (Unverified Adverse Reaction, Severe, GI BLEEDING, 09/07/17) diclofenac (Unverified Adverse Reaction, Severe, GI BLEED, 09/07/17) duloxetine (Unverified Adverse Reaction, Severe, SUICIDAL THOUGHTS, ) etodolac (Unverified Adverse Reaction, Severe, GI BLEED, 09/07/17) flurbiprofen (Unverified Adverse Reaction, Severe, GI BLEED, 09/07/17) ibuprofen (Unverified Adverse Reaction, Severe, GI BLEED, 09/07/17) indomethacin (Unverified Adverse Reaction, Severe, GI BLEED, 09/07/17) ketoprofen (Unverified Adverse Reaction, Severe, GI BLEED, 09/07/17) ketorolac (Unverified Adverse Reaction, Severe, GI BLEED, 09/07/17) naproxen (Unverified Adverse Reaction, Severe, GI BLEED, 09/07/17) oxaprozin (Unverified Adverse Reaction, Severe, GI BLEED, 09/07/17) Medications Insulin oxybutynin tamoxifen and Paxil Family History Patient denies any history of liver disease or colon cancer in the family Social History She denies any history of chronic smoking alcohol abuse or IV drug use Review of Systems Gastrointestinal: COMPLAINS OF: Heartburn, Hematemesis GI Exam Vitals I&O Vital Signs Date Time Temp Pulse Resp B/P (MAP) Pulse Ox O2 Delivery O2 Flow Rate FiO2 09/09/17 16:00 98.5 92 31 109/47 (67) 96 09/09/17 16:00 92 09/09/17 13:20 98.7 93 18 124/60 (81) 95 09/09/17 13:13 92 09/09/17 09:00 86 19 09/09/17 08:00 83 09/09/17 08:00 95 Nasal Cannula 2.00 09/09/17 08:00 99.0 82 18 126/60 (82) 95 09/09/17 08:00 95 Nasal Cannula 2.00 09/09/17 06:05 68 09/09/17 04:00 62 09/09/17 03:15 80 23 114/54 (74) 96 09/09/17 03:10 78 14 89/40 (56) 95 09/09/17 02:05 74 09/09/17 00:20 98.6 82 22 108/55 (72) 95 09/09/17 00:06 82 09/08/17 23:10 82 24 108/55 (72) 09/08/17 22:59 16 09/08/17 22:17 84 09/08/17 21:57 86 26 117/56 (76) 98 09/08/17 20:05 87 09/08/17 19:33 84 I/O 09/08/17 09/08/17 09/08/17 09/09/17 09/09/17 09/09/17 07:00 15:00 23:00 07:00 15:00 23:00 Intake Total 600 ml 345 ml 600 ml 520 ml Balance 600 ml 345 ml 600 ml 520 ml Intake Oral 240 ml 600 ml 520 ml IV Total 105 ml Packed Cells 400 ml Blood Product IV Normal Saline Flush 200 ml # Voids 3 3 3 # Bowel Movements 1 0 Laboratory Test 09/09/17 04:23 09/09/17 09:05 White Blood Count 16.5 TH/MM3 Corrected White Blood Count 13.8 TH/MM3 Red Blood Count 3.23 MIL/MM3 Hemoglobin 7.4 GM/DL Hematocrit 24.4 % Mean Corpuscular Volume 75.5 FL Mean Corpuscular Hemoglobin 22.9 PG Mean Corpuscular Hemoglobin Concent 30.4 % Red Cell Distribution Width 24.4 % Platelet Count 350 TH/MM3 Mean Platelet Volume 11.7 FL CBC Comment AUTO DIFF Differential Total Cells Counted 100 Neutrophils % (Manual) 78 % Lymphocytes % 13 % Monocytes % 7 % Eosinophils % 2 % Neutrophils # (Manual) 10.8 TH/MM3 Nucleated Red Blood Cells 20 /100 WBC Differential Comment FINAL DIFF MANUAL Platelet Estimate NORMAL Platelet Morphology Comment ENLARGED Blood Urea Nitrogen 36 MG/DL Creatinine 1.10 MG/DL Random Glucose 108 MG/DL Total Protein 6.7 GM/DL Albumin 2.4 GM/DL Calcium Level 8.3 MG/DL Alkaline Phosphatase 434 U/L Aspartate Amino Transf (AST/SGOT) 492 U/L Alanine Aminotransferase (ALT/SGPT) 408 U/L Total Bilirubin 0.8 MG/DL Direct Bilirubin 0.4 MG/DL Sodium Level 138 MEQ/L Potassium Level 3.7 MEQ/L Chloride Level 108 MEQ/L Carbon Dioxide Level 23.1 MEQ/L Anion Gap 7 MEQ/L Estimat Glomerular Filtration Rate 48 ML/MIN Indirect Bilirubin 0.4 MG/DL Physical Examination HEENT: Pupils round and reactive to light; normocephalic; atraumatic; no jaundice. Throat is clear. NECK: Neck is supple, no JVD, no lymphadenopathy. CHEST: Chest is clear to auscultation and percussion. CARDIAC: Regular rate and rhythm with no murmur gallop or rubs. ABDOMEN: Soft, nondistended, nontender; no hepatosplenomegaly; bowel sounds are present in all four quadrants. EXTREMITIES: No clubbing, cyanosis, or edema. SKIN: Normal; no rash; no jaundice. ROLL CUTTING OPERATOR: No focal deficits; alert and oriented times three. Assessment and Plan Assessment: (1) Ulcerative colitis ICD Codes: K51.90 - Ulcerative colitis, unspecified, without complications Status: Chronic (2) Polyp of colon ICD Codes: K63.5 - Polyp of colon Status: Resolved (3) Anemia ICD Codes: D64.9 - Anemia, unspecified Status: Acute (4) Telangiectasia disorder ICD Codes: I78.9 - Disease of capillaries, unspecified Status: Acute (5) Transaminitis ICD Codes: R74.0 - Nonspecific elevation of levels of transaminase and lactic acid dehydrogenase [LDH] Status: Acute Plan 1. EGD and colonoscopy to check the possibility of occult GI bleeding from telangiectasia 2. Labs to further workup the liver Panel abnormalities. Check antinuclear antibodies, anti-smooth muscle antibodies, antimitochondrial antibodies, ferritin. If liver panel is abnormal in spite of stopping antilipid treatment and labs are inconclusive she may need liver biopsy for further workup. Problem Qualifiers (1) Polyp of colon: (2) Anemia: Qualified Codes: D50.9 - Iron deficiency anemia, unspecified Michael Ohara MD Sep 09, 2017 19:25
[2017-09-09] MEDS: INSULIN DETEMIR 100 UNITS/ML VIAL SQ SCH (20:18)
[2017-09-09] MEDS: LISINOPRIL 5 MG TAB PO SCH (20:18)
[2017-09-09] MEDS: PEG (High)/E-LYTE SOLN 4000 ML BTL PO SCH ×8 (20:30→23:30)
[2017-09-09] MEDS: IRON SUCROSE INJ 100 MG in SODIUM CHLORIDE 0.9% INJ 100 ML IV SCH (21:00)
[2017-09-10] VITALS (13 sets, daily range): BP systolic 103–125; BP diastolic 55–68; PULSE 86–98; RESP 15–26; TEMP 96.6–99.4; O2SAT 94–98
[2017-09-10] MEDS: PEG (High)/E-LYTE SOLN 4000 ML BTL PO SCH ×8 (00:30→03:30)
[2017-09-10 05:06] LABS: HEMATOCRIT 23.8 % (35.0-46.0); HEMOGLOBIN 7.2 GM/DL (11.6-15.3); MEAN CELL VOLUME 75.1 FL (80.0-100.0); MEAN CORPUSCULAR HEMOGLOBIN 22.7 PG (27.0-34.0); MEAN CORPUSCULAR HGB CONC 30.2 % (32.0-36.0); MEAN PLATELET VOLUME 11.1 FL (7.0-11.0); PLATELET COUNT 323 TH/MM3 (150-450); RED BLOOD COUNT 3.17 MIL/MM3 (4.00-5.30); RED CELL DISTRIBUTION WIDTH 25.4 % (11.6-17.2)
[2017-09-10 05:19] LABS: ALBUMIN 2.2 GM/DL (3.4-5.0); BICARBONATE 25.3 MEQ/L (21.0-32.0)
[2017-09-10 05:32] LABS: CALCIUM 8.2 MG/DL (8.5-10.1); CREATININE 0.79 MG/DL (0.50-1.00); DIRECT BILIRUBIN ADULT 0.3 MG/DL (0.0-0.2); INDIRECT BILIRUBIN 0.3 MG/DL (0.0-0.8); TOTAL BILIRUBIN ADULT 0.6 MG/DL (0.2-1.0); TOTAL PROTEIN 6.3 GM/DL (6.4-8.2)
[2017-09-10 05:57] LABS: CORRECTED NUCLEATED RBC 29 /100 WBC (0-0); LYMPHOCYTES 7 % (9-44); METAMYELOCYTES 1 % (0-1); MONOCYTES 5 % (0-8); NEUTROPHIL # MANUAL DIFF 12.3 TH/MM3 (1.8-7.7); NUCLEATED RED BLOOD CELL 29 (0-0); POLYS (SEG NEUTROPHILS) 87 % (16-70)
[2017-09-10 05:58] LABS: TARGET CELLS 1+ (NORMAL)
[2017-09-10] MEDS: glipiZIDE 10 MG TAB PO SCH (07:00)
[2017-09-10] MEDS: INSULIN NovoLIN REGULAR SUPPLEMENTAL SCALE SQ SCH ×4 (08:00→20:56)
[2017-09-10] MEDS: FOLIC ACID 1 MG TAB PO SCH (09:23)
[2017-09-10] MEDS: PARoxetine HCL 20 MG TAB PO SCH (09:23)
[2017-09-10] MEDS: OXYBUTYNIN CHLORIDE 5 MG TAB PO SCH (09:23)
[2017-09-10 11:26] LABS: HEPATITIS A AB IGM NEGATIVE (NEGATIVE); HEPATITIS B CORE AB IGM NEGATIVE (NEGATIVE); HEPATITIS B SURFACE ANTIGEN NEGATIVE (NEGATIVE); HEPATITIS C AB IgG NEGATIVE (NEGATIVE)
[2017-09-10] MEDS ORDERED: CHLORHEXIDINE GLUCONATE 2 % 1 PACK (2 CLOTHS) TOPICAL PRN (13:00)
[2017-09-10] MEDS ORDERED: METOPROLOL TARTRATE 25 MG TAB PO PRN (13:00)
[2017-09-10] MEDS ORDERED: SODIUM CHLORID 0.9% 500 ML IV PRN (13:00)
[2017-09-10] MEDS ORDERED: LACTATED RINGER'S 1000 ML IV PRN (13:00)
[2017-09-10] MEDS ORDERED: POVIDONE IODINE 5% (ANTISEPSIS KIT) 4 APPLICATIONS EACH NARE PRN (13:00)
[2017-09-10] MEDS ORDERED: POTASSIUM CHLORIDE 10 MEQ CONTROLLED RELEASE TAB PO ONE (14:00)
--- NOTE | 2017-09-10 14:03 | GIPROC ---
[facility] [address] [place] [address], [id number] EGD PROCEDURE REPORT EXAM DATE: 09/10/2017 PATIENT NAME: Haylee Altamirano MR #: [id number] BIRTHDATE: 1940 ATTENDING: Floridalma Tang MD ORDER #: [id number] [employer] DIRECTOR: Kae Mccarthy STATUS: inpatient INDICATIONS: The patient is a 77 yr old female here for an EGD due to iron deficiency anemia PROCEDURE PERFORMED: EGD w/ biopsy MEDICATIONS: None and Per Anesthesia. TOPICAL ANESTHETIC: CONSENT: The patient understands the risks and benefits of the procedure and understands that these risks include, but are not limited to: sedation, allergic reaction, infection, perforation and/or bleeding. Alternative means of evaluation and treatment include, among others: physical exam, x-rays, and/or surgical intervention. The patient elects to proceed with this endoscopic procedure. medical equipment was checked for proper function. Hand hygiene and appropriate measures for infection prevention was taken. After the risks, benefits and alternatives of the procedure were thoroughly explained, Informed consent was verified, confirmed and timeout was successfully executed by the treatment team. The patient was anesthetized with topical anesthesia and the Pentax [id number] endoscope was introduced through the mouth and advanced to the second portion of the duodenum. Retroflexed views revealed no abnormalities The gastroscope was then slowly withdrawn and removed. ESOPHAGUS: There was LA Class A esophagitis noted. STOMACH: There was erythematous moderate and erosive gastritis in the gastric antrum. A biopsy was performed using cold forceps. Sample sent for histology. DUODENUM: Two non-bleeding, shallow and clean-based ulcers ranging between 3-5 mm in size were found in the 1st part of the duodenum. Biopsies were taken at edge of the ulcers. ADVERSE EVENTS: There were no complications. IMPRESSIONS: 1. There was LA Class A esophagitis noted 2. There was erythematous gastritis in the gastric antrum; biopsy was performed 3. Two ulcers ranging between 3-5 mm in size were found in the 1st part of the duodenum; biopsies were taken 4. Retroflexed views revealed no abnormalities RECOMMENDATIONS: 1. Await biopsy results. Biopsy results will not be ready for 7-10 days. If you don't hear from us in two weeks, call our office for biopsy results. 2. Anti-reflux regimen 3. Continue PPI 4. Avoid NSAIDS PATIENT CONDITION: stable DISPOSITION: Inpatient REPEAT EXAM: Return 3 months EGD pending biopsy results Floridalma Tang MD eSigned: Floridalma Tang MD 09/10/2017 2:02 PM cc: PATIENT NAME: Haylee Altamirano MR#: [id number]
--- NOTE | 2017-09-10 14:05 | GIPROC ---
[address], [address] COLONOSCOPY PROCEDURE REPORT EXAM DATE: 09/10/2017 PATIENT NAME: Haylee Altamirano MR #: [id number] BIRTHDATE: 1940 ENDOSCOPIST: Floridalma Tang MD ORDER #: [id number] AUTOMOTIVE PARTS COUNTER ASSISTANT: Kae Mccarthy STATUS: inpatient INDICATIONS: The patient is a 77 yr old female here for a colonoscopy due to iron deficiency anemia PROCEDURE PERFORMED: Colonoscopy, incomplete MEDICATIONS: None and Per Anesthesia. PREP QUALITY: suboptimal PREP TYPE:GoLytely ESTIMATED BLOOD LOSS: None CONSENT: The patient understands the risks and benefits of the procedure and understands that these risks include, but are not limited to: sedation, allergic reaction, infection, perforation and/or bleeding. Alternative means of evaluation and treatment include, among others: physical exam, x-rays, and/or surgical intervention. The patient elects to proceed with this endoscopic procedure. medical equipment was checked for proper function. Hand hygiene and appropriate measures for infection prevention was taken. After the risks, benefits and alternatives of the procedure were thoroughly explained, Informed consent was verified, confirmed and timeout was successfully executed by the treatment team. A digital exam revealed external hemorrhoids The Pentax [id number] endoscope was introduced through the anus and advanced to the sigmoid colon. The instrument was then slowly withdrawn as the colon was fully examined. COLON FINDINGS: The colonic mucosa appeared normal. Retroflexed views revealed internal hemorrhoids and Retroflexed views revealed medium internal hemorrhoids The scope was then completely withdrawn from the patient and the procedure terminated. ADVERSE EVENTS: There were no complications. IMPRESSIONS: 1. The colonic mucosa appeared normal 2. Retroflexed views revealed internal hemorrhoids 3. Retroflexed views revealed medium internal hemorrhoids 4. Revealed external hemorrhoids RECOMMENDATIONS: 1. Continue surveillance 2. Clear liquid diet today. Dr. Flores to decide timing for repeat colonoscopy RECALL: Return 1 day Colonoscopy Floridalma Tang MD eSigned: Floridalma Tang MD 09/10/2017 2:04 PM cc:
--- NOTE | 2017-09-10 14:43 | HHI.PR ---
Subjective Remarks No shortness of breath or abdominal complaints. No chest pain. Her blood sugar was low this morning likely aggravated by being on Glipizide and being NPO for her GI procedure. Was given D50W this morning. Objective Vitals Vital Signs Date Time Temp Pulse Resp B/P (MAP) Pulse Ox O2 Delivery O2 Flow Rate FiO2 09/10/17 12:10 99.4 93 20 121/61 (81) 98 09/10/17 12:00 99.4 92 21 121/61 (81) 09/10/17 12:00 92 09/10/17 11:00 86 17 09/10/17 10:00 94 15 09/10/17 09:00 94 18 09/10/17 08:30 96 Nasal Cannula 2.00 09/10/17 08:00 90 09/10/17 08:00 99.1 92 18 114/58 (76) 95 09/10/17 07:00 88 17 09/10/17 07:00 Nasal Cannula 2.00 09/10/17 04:00 98 09/10/17 04:00 94 18 103/68 (80) 95 09/10/17 00:00 98.1 87 24 125/55 (78) 97 09/10/17 00:00 87 09/09/17 20:21 98 Nasal Cannula 2.00 09/09/17 20:00 110 09/09/17 20:00 98.0 110 29 128/60 (82) 96 09/09/17 19:00 Nasal Cannula 2.00 09/09/17 16:00 98.5 92 31 109/47 (67) 96 09/09/17 16:00 92 Result Diagram: 09/10/17 0430 09/10/17 0430 Other Results Laboratory Tests Test 09/09/17 04:23 09/09/17 09:05 09/09/17 21:00 09/10/17 04:30 White Blood Count 16.5 TH/MM3 18.0 TH/MM3 Corrected White Blood Count 13.8 TH/MM3 14.0 TH/MM3 Red Blood Count 3.23 MIL/MM3 3.17 MIL/MM3 Hemoglobin 7.4 GM/DL 7.2 GM/DL Hematocrit 24.4 % 23.8 % Mean Corpuscular Volume 75.5 FL 75.1 FL Mean Corpuscular Hemoglobin 22.9 PG 22.7 PG Mean Corpuscular Hemoglobin Concent 30.4 % 30.2 % Red Cell Distribution Width 24.4 % 25.4 % Platelet Count 350 TH/MM3 323 TH/MM3 Mean Platelet Volume 11.7 FL 11.1 FL CBC Comment AUTO DIFF AUTO DIFF Differential Total Cells Counted 100 100 Neutrophils % (Manual) 78 % 87 % Lymphocytes % 13 % 7 % Monocytes % 7 % 5 % Eosinophils % 2 % Neutrophils # (Manual) 10.8 TH/MM3 12.3 TH/MM3 Nucleated Red Blood Cells 20 /100 WBC 29 /100 WBC Differential Comment FINAL DIFF MANUAL FINAL DIFF MANUAL Platelet Estimate NORMAL HIGH Platelet Morphology Comment ENLARGED NORMAL Blood Urea Nitrogen 36 MG/DL 22 MG/DL Creatinine 1.10 MG/DL 0.79 MG/DL Random Glucose 108 MG/DL 49 MG/DL Total Protein 6.7 GM/DL 6.3 GM/DL Albumin 2.4 GM/DL 2.2 GM/DL Calcium Level 8.3 MG/DL 8.2 MG/DL Alkaline Phosphatase 434 U/L 384 U/L Aspartate Amino Transf (AST/SGOT) 492 U/L 257 U/L Alanine Aminotransferase (ALT/SGPT) 408 U/L 298 U/L Total Bilirubin 0.8 MG/DL 0.6 MG/DL Direct Bilirubin 0.4 MG/DL 0.3 MG/DL Sodium Level 138 MEQ/L 140 MEQ/L Potassium Level 3.7 MEQ/L 3.3 MEQ/L Chloride Level 108 MEQ/L 108 MEQ/L Carbon Dioxide Level 23.1 MEQ/L 25.3 MEQ/L Anion Gap 7 MEQ/L 7 MEQ/L Estimat Glomerular Filtration Rate 48 ML/MIN 71 ML/MIN Indirect Bilirubin 0.4 MG/DL 0.3 MG/DL Hepatitis A IgM Antibody NEGATIVE Hepatitis B Surface Antigen NEGATIVE Hepatitis B Core IgM Antibody NEGATIVE Hepatitis C Antibody NEGATIVE Anti-Nuclear Antibody Screen NEG Metamyelocytes 1 % Target Cells 1+ Imaging Last Impressions Hepatobiliary Scan Nuclear Medicine 09/09/17 0000 Signed Impressions: Service Date/Time: August 11:20 - CONCLUSION: Hepatocellular dysfunction Bile gastric reflux. No evidence of biliary obstruction or acute cholecystitis Parviz Esposito MD Liver Ultrasound 09/08/17 0600 Signed Impressions: Service Date/Time: Friday, September 08, 2017 08:18 - CONCLUSION: 1. Mildly increased diffuse hepatic echogenicity without volume loss which may reflect medical liver disease versus hepatic steatosis. 2. Mild gallbladder wall thickening with very trace pericholecystic fluid. This can be routinely seen in patients with chronic liver disease although this reduces ultrasound sensitivity for early acute cholecystitis. If there is significant concern regarding acute cholecystitis, consider HIDA scan to evaluate for cystic duct patency. 3. Slight increased right renal cortical echogenicity which may reflect medical renal disease. Liu Gregorio MD Last Impressions Liver Ultrasound 09/08/17 0600 Signed Impressions: Service Date/Time: Wednesday, September 08, 2017 08:18 - CONCLUSION: 1. Mildly increased diffuse hepatic echogenicity without volume loss which may reflect medical liver disease versus hepatic steatosis. 2. Mild gallbladder wall thickening with very trace pericholecystic fluid. This can be routinely seen in patients with chronic liver disease although this reduces ultrasound sensitivity for early acute cholecystitis. If there is significant concern regarding acute cholecystitis, consider HIDA scan to evaluate for cystic duct patency. 3. Slight increased right renal cortical echogenicity which may reflect medical renal disease. Liu Gregorio MD Objective Remarks Exam: Pleasant female in no distress. HEENT: pupils equal, no scleral icterus Neck: No JVD Heart: RRR Lungs: Clear Abdomen: Soft, nontender Lower legs:: No edema Neuro: Alert, oriented Procedures EGD and colonoscopy today (09-10-17) EGD: esophagitis; erythematous gastritis in the gastric antrum; two ulcers ranging between 3-5mm in size were found in the 1st part of the duodenum that were not bleeding, shallow, and clean-based ulcers Colonoscopy: Colonic mucosa was normal, medium internal hemorrhoids A/P Assessment and Plan Assessment: --Severe iron deficiency anemia--improving with iron infusions. Hematology wants to improve her Hg with iron infusions rather than blood transfusions --Abnormal liver functions tests of questionable etiology--her Atorvastatin was stopped on admission.Her ultrasound and HIDA scan suggests possible hepatobiliary disease. Various blood tests for causes of liver disease are pending. Her AST and ALT were improving today and alkaline phosphatase a little better. 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 She has been NPO all day because of her GI procedures. I instructed the nurse to hold her evening Levemir if her blood sugar is <100. I talked with her loan officer assistant (Dr Vieyra) today and she states that the patient can get further iron infusions as an outpatient and she will arrange for her to get more of these starting on Wednesday. She doesn't want to transfuse her with packed red cells because of some antibodies to the blood. She also stated that because of her persistent mild elevated white blood cell count that this could imply an underlying bone marrow process. If it persists she will likely perform a bone marrow on her. She states that she had no problem with the patient going home with her Hg in the 7's. She will followup on her blood counts next week. She is on Pantoprazole for her gastritis and esophagitis. I will give her some potassium since it was only 3.3 today. Her blood sugar will need to be monitored till tomorrow and if it doesn't drop then she can likely go home. I will recheck her hepatic panel in the morning to see if her liver enzymes continue to improved. I discussed the case also with Dr Main who will be taking over her care this afternoon. Jose Muro MD Sep 10, 2017 14:43
[2017-09-10] MEDS ORDERED: DIATRIZOATE MEGLUM/DIATRIZOATE SOD 9 ML CUP PO ONE (15:30)
[2017-09-10] MEDS: PANTOPRAZOLE SOD 40 MG DELAYED RELEASE TAB PO SCH (16:06)
--- NOTE | 2017-09-10 17:23 | RADRPT ---
EXAM DATE/TIME: 09/10/2017 16:40 [facility] COMPARISON: No previous studies available for comparison. INDICATIONS : Chronic anemia. ORAL CONTRAST: Prescribed oral contrast ingested. RADIATION DOSE: 7.56 CTDIvol (mGy) MEDICAL HISTORY : Irritiable bowel syndrome. Carcinoma, breast. Gastroesophageal reflux disease.Diabetes. Hypertension . Colitis. SURGICAL HISTORY : Abdominal aortic aneurysm repair. Hemorrhoidectomy.Hysterectomy.Appendectomy. ENCOUNTER: Initial ACUITY: 1 day PAIN SCALE: 0/10 LOCATION: Abdomen. TECHNIQUE: Volumetric scanning of the abdomen and pelvis was performed. Using automated exposure control and ad justment of the mA and/or kV according to patient size, radiation dose was kept as low as reasonably achievable to obtain optimal diagnostic quality images. DICOM format image data is available electro nically for review and comparison. FINDINGS: There is cardiomegaly with mild interstitial edema and small bilateral pleural effusions. Within the limits of the noncontrast study the liver, pancreas and adrenals are unremarkable The spleen is absent Small calcifications are seen in the left kidney without obstruction. The right kidney is unremarka ble Stent graft is present in the l abdominal aorta There is masslike density in the cecum. Correlation is suggested The remainder of the colon is unremarkable The pelvis the bladder is distended. Generalized anasarca is evident. There is no free fluid. There is no free air. Degenerative changes are seen in the lumbar spine. CONCLUSION: Abnormal cecum. 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 Robert Galvez MD FACR on September 10, 2017 at 17:18 Board Certified Radiologist. This report was verified electronically.
--- NOTE | 2017-09-10 18:30 | PD.ONC.PN ---
Subjective Subjective Remarks Happy to have dinner. Do not want to do another prep. Denies any bleeding. Feels better. Objective Data Date Time Temp Pulse Resp B/P (MAP) Pulse Ox O2 Delivery O2 Flow Rate FiO2 09/10/17 16:00 99.2 94 26 121/61 (81) 09/10/17 16:00 94 09/10/17 14:25 92 16 119/66 (83) 98 09/10/17 14:10 98.8 90 16 112/58 (76) 99 09/10/17 12:10 99.4 93 20 121/61 (81) 98 09/10/17 12:00 99.4 92 21 121/61 (81) 09/10/17 12:00 92 09/10/17 11:00 86 17 09/10/17 10:00 94 15 09/10/17 09:00 94 18 09/10/17 08:30 96 Nasal Cannula 2.00 09/10/17 08:00 90 09/10/17 08:00 99.1 92 18 114/58 (76) 95 09/10/17 07:00 88 17 09/10/17 07:00 Nasal Cannula 2.00 09/10/17 04:00 98 09/10/17 04:00 94 18 103/68 (80) 95 09/10/17 00:00 98.1 87 24 125/55 (78) 97 09/10/17 00:00 87 09/09/17 20:21 98 Nasal Cannula 2.00 09/09/17 20:00 110 09/09/17 20:00 98.0 110 29 128/60 (82) 96 09/09/17 19:00 Nasal Cannula 2.00 09/10/17 09/10/17 09/10/17 07:00 15:00 23:00 Intake Total 0 ml 100 ml 250 ml Balance 0 ml 100 ml 250 ml Result Diagram: 09/10/1742909/10/17 043 Laboratory Results Laboratory Tests Test 09/09/17 21:00 09/10/17 04:30 Anti-Nuclear Antibody Screen NEG White Blood Count 18.0 TH/MM3 Corrected White Blood Count 14.0 TH/MM3 Red Blood Count 3.17 MIL/MM3 Hemoglobin 7.2 GM/DL Hematocrit 23.8 % Mean Corpuscular Volume 75.1 FL Mean Corpuscular Hemoglobin 22.7 PG Mean Corpuscular Hemoglobin Concent 30.2 % Red Cell Distribution Width 25.4 % Platelet Count 323 TH/MM3 Mean Platelet Volume 11.1 FL CBC Comment AUTO DIFF Differential Total Cells Counted 100 Neutrophils % (Manual) 87 % Lymphocytes % 7 % Monocytes % 5 % Neutrophils # (Manual) 12.3 TH/MM3 Metamyelocytes 1 % Nucleated Red Blood Cells 29 /100 WBC Differential Comment FINAL DIFF MANUAL Platelet Estimate HIGH Platelet Morphology Comment NORMAL Target Cells 1+ Blood Urea Nitrogen 22 MG/DL Creatinine 0.79 MG/DL Random Glucose 49 MG/DL Total Protein 6.3 GM/DL Albumin 2.2 GM/DL Calcium Level 8.2 MG/DL Alkaline Phosphatase 384 U/L Aspartate Amino Transf (AST/SGOT) 257 U/L Alanine Aminotransferase (ALT/SGPT) 298 U/L Total Bilirubin 0.6 MG/DL Direct Bilirubin 0.3 MG/DL Sodium Level 140 MEQ/L Potassium Level 3.3 MEQ/L Chloride Level 108 MEQ/L Carbon Dioxide Level 25.3 MEQ/L Anion Gap 7 MEQ/L Estimat Glomerular Filtration Rate 71 ML/MIN Indirect Bilirubin 0.3 MG/DL Imaging Studies Last 24 hours Impressions Abdomen/Pelvis CT 09/10/17 0000 Signed Impressions: Service Date/Time: Sunday, September 10, 2017 16:40 - CONCLUSION: Abnormal cecum. 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 Robert Galvez MD FACR Administered Medications Medications (Trade) Dose Ordered Sig/Fatoumata Route PRN Reason Start Time Stop Time Status Last Admin Dose Admin Sodium Chloride (NS Flush) 2 ml UNSCH PRN IVF FLUSH AFTER USING IV ACCESS 09/07/17 10:15 09/09/17 08:11 Glipizide (Glucotrol) 10 mg BIDAC PO 09/07/17 16:00 Future Hold 09/09/17 17:34 Acetaminophen/ Hydrocodone Bitart ([place] 7.5-325 Mg) 1 tab Q4H PRN PO PAIN SCALE 1 TO 10 09/07/17 12:45 09/08/17 21:39 Insulin Detemir (Levemir Inj) 8 units HS SQ 09/07/17 21:00 09/09/17 20:18 Lisinopril (Prinivil) 5 mg HS PO 09/07/17 21:00 09/09/17 20:18 Oxybutynin Chloride (Ditropan) 5 mg DAILY PO 09/08/17 09:00 09/10/17 09:23 Paroxetine HCl (Paxil) 20 mg DAILY PO 09/08/17 09:00 09/10/17 09:23 Folic Acid (Folate) 1 mg DAILY PO 09/07/17 19:00 09/10/17 09:23 Glucagon (Glucagon Inj) 1 mg UNSCH PRN OTHER HYPOGLYCEMIA-SEE COMMENTS 09/07/17 18:30 09/10/17 05:41 Insulin Human Regular (NovoLIN R SUPPLEMENTAL SCALE) 1 ACHS SLIDING SCALE SQ 09/07/17 21:00 09/09/17 20:22 Pantoprazole Sodium (Protonix) 40 mg DAILY PO 09/10/17 15:00 09/10/17 16:06 Objective Remarks GENERAL: Well-nourished, well-developed patient. SKIN: Warm and dry. [place] color, less pale. HEAD: Normocephalic. EYES: No scleral icterus. No injection or drainage. NECK: Supple, trachea midline. No JVD or lymphadenopathy. LYMPHATIC: No adenopathy. CARDIOVASCULAR: Regular rate and rhythm without murmurs. RESPIRATORY: Breath sounds equal bilaterally. No accessory muscle use. GASTROINTESTINAL: Abdomen soft, non-tender, nondistended. EXTREMITIES: No cyanosis, or edema. NEUROLOGICAL: No obvious focal deficit. Awake, alert, and oriented x3. PSYCHIATRIC: Appropriate mood and affect; insight and judgment normal. Assessment/Plan Problem List: (1) Anemia ICD Codes: D64.9 - Anemia, unspecified Status: Acute Plan: Pt has Iron Def Anemia. Ferritin 15 suspected from chronic blood loss from telangectatic vessels. Pt had so far 2 units of PRBC and iron sucrose. Hgb stable. Recommend continue iron tx. goal 1.5G, may continue as out pt. Discussed w/ Dr. Muro, reactive leukocytosis will be followed, if anemia do not resolve with tx of iron deficiency consider BM bx. Ok for DC to home from heme onc perspective. Plan to continue iron tx and follow LFT. 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 Problem Qualifiers (1) Anemia: Qualified Codes: D50.9 - Iron deficiency anemia, unspecified Glenna Vieyra MD Sep 10, 2017 18:30
[2017-09-10] MEDS ORDERED: IRON SUCROSE INJ 100 MG in SODIUM CHLORIDE 0.9% INJ 100 ML IV ONE (20:00)
[2017-09-10] MEDS: LISINOPRIL 5 MG TAB PO SCH (20:12)
[2017-09-10] MEDS: SODIUM CHLORIDE 0.9% FLUSH 10 ML FLUSH IVF PRN (20:12)
[2017-09-10] MEDS: INSULIN DETEMIR 100 UNITS/ML VIAL SQ SCH (20:56)
[2017-09-10] MEDS: ACETAMINOPHEN/HYDROcodone 325 MG/7.5 MG TAB PO PRN (22:06)
[2017-09-11] VITALS (10 sets, daily range): BP systolic 95–149; BP diastolic 47–67; PULSE 18–101; RESP 18–26; TEMP 98–99.1; O2SAT 92–97
--- NOTE | 2017-09-11 05:27 | HHI.PR ---
Subjective Remarks Feeling better. Still with some weakness, but overall improved. No hematochezia or melena. Was glad to get something to eat last night. Objective Vitals Vital Signs Date Time Temp Pulse Resp B/P (MAP) Pulse Ox O2 Delivery O2 Flow Rate FiO2 09/11/17 00:00 98.7 92 26 102/50 (67) 94 09/10/17 22:00 97.2 96 26 123/55 (77) 94 09/10/17 20:00 93 09/10/17 20:00 96.6 94 22 122/65 (84) 95 09/10/17 20:00 95 Nasal Cannula 1.00 24 09/10/17 16:00 99.2 94 26 121/61 (81) 09/10/17 16:00 94 09/10/17 14:25 92 16 119/66 (83) 98 09/10/17 14:10 98.8 90 16 112/58 (76) 99 09/10/17 12:10 99.4 93 20 121/61 (81) 98 09/10/17 12:00 99.4 92 21 121/61 (81) 09/10/17 12:00 92 09/10/17 11:00 86 17 09/10/17 10:00 94 15 09/10/17 09:00 94 18 09/10/17 08:30 96 Nasal Cannula 2.00 09/10/17 08:00 90 09/10/17 08:00 99.1 92 18 114/58 (76) 95 09/10/17 07:00 88 17 09/10/17 07:00 Nasal Cannula 2.00 GENERAL: sleeping, arouses to voice, a/o, cooperative, NAD SKIN: Warm and dry. HEAD: Normocephalic. EYES: No scleral icterus. No injection or drainage. NECK: Supple, trachea midline. No JVD or lymphadenopathy. CARDIOVASCULAR: Regular rate and rhythm without murmurs, gallops, or rubs. RESPIRATORY: Breath sounds equal bilaterally. No accessory muscle use. GASTROINTESTINAL: Abdomen soft, non-tender, nondistended. No g/r. Neg Betancur sign. MUSCULOSKELETAL: No cyanosis, or edema. ARACELIS in place but declines SCD. BACK: No CVA tenderness. Result Diagram: 09/10/1742909/10/17429 Imaging Last Impressions Hepatobiliary Scan Nuclear Medicine 2/15/18 0000 Signed Impressions: Service Date/Time: August 11:20 - CONCLUSION: Hepatocellular dysfunction Bile gastric reflux. No evidence of biliary obstruction or acute cholecystitis Parviz Esposito MD Liver Ultrasound 09/08/17 0600 Signed Impressions: Service Date/Time: Friday, September 08, 2017 08:18 - CONCLUSION: 1. Mildly increased diffuse hepatic echogenicity without volume loss which may reflect medical liver disease versus hepatic steatosis. 2. Mild gallbladder wall thickening with very trace pericholecystic fluid. This can be routinely seen in patients with chronic liver disease although this reduces ultrasound sensitivity for early acute cholecystitis. If there is significant concern regarding acute cholecystitis, consider HIDA scan to evaluate for cystic duct patency. 3. Slight increased right renal cortical echogenicity which may reflect medical renal disease. Liu Gregorio MD Last Impressions Liver Ultrasound 09/08/17 0600 Signed Impressions: Service Date/Time: Friday, September 08, 2017 08:18 - CONCLUSION: 1. Mildly increased diffuse hepatic echogenicity without volume loss which may reflect medical liver disease versus hepatic steatosis. 2. Mild gallbladder wall thickening with very trace pericholecystic fluid. This can be routinely seen in patients with chronic liver disease although this reduces ultrasound sensitivity for early acute cholecystitis. If there is significant concern regarding acute cholecystitis, consider HIDA scan to evaluate for cystic duct patency. 3. Slight increased right renal cortical echogenicity which may reflect medical renal disease. Liu Gregorio MD Procedures EGD and colonoscopy today (09-10-17) EGD: esophagitis; erythematous gastritis in the gastric antrum; two ulcers ranging between 3-5mm in size were found in the 1st part of the duodenum that were not bleeding, shallow, and clean-based ulcers Colonoscopy: Colonic mucosa was normal, medium internal hemorrhoids Urinary Catheter: No Vascular Central Line Catheter: No A/P Problem List: (1) Iron deficiency anemia ICD Codes: D50.9 - Iron deficiency anemia, unspecified Status: Chronic Plan: IV iron replacement ongoing. Heme/onc on case. Awaiting this AM labs. (2) Ulcerative colitis ICD Codes: K51.90 - Ulcerative colitis, unspecified, without complications Status: Chronic Plan: outpt with GI (3) Transaminitis ICD Codes: R74.0 - Nonspecific elevation of levels of transaminase and lactic acid dehydrogenase [LDH] Status: Acute Plan: ? etiology. Hold statins. Appreciate GI input. Outpt w/u. Asymptomatic from GI standpoint. Imaging, labs, GI procedures reviewed. Declines repeat colonoscopy any time soon. (4) DM2 (diabetes mellitus, type 2) ICD Codes: E11.9 - Type 2 diabetes mellitus without complications Plan: Low sugars 09/10/17 likely due to NPO. Sugars elevated last PM as pt was able to eat diet again. Continue Levemir, ssi. Outpt meds once eating diet well at home. (5) GERD with esophagitis ICD Codes: K21.0 - Gastro-esophageal reflux disease with esophagitis Status: Chronic Plan: ppi, EGD noted (6) Hypertension ICD Codes: I10 - Essential (primary) hypertension Status: Chronic Plan: continue tx. Discharge Planning d/c home with HH vs rehab hopefully later today Problem Qualifiers (1) DM2 (diabetes mellitus, type 2): (2) Hypertension: Qualified Codes: I10 - Essential (primary) hypertension Eduardo Main MD PhD Sep 11, 2017 05:27
[2017-09-11 06:18] LABS: HEMATOCRIT 24.7 % (35.0-46.0); HEMOGLOBIN 7.4 GM/DL (11.6-15.3); MEAN CELL VOLUME 77.4 FL (80.0-100.0); MEAN CORPUSCULAR HEMOGLOBIN 23.3 PG (27.0-34.0); MEAN CORPUSCULAR HGB CONC 30.1 % (32.0-36.0); MEAN PLATELET VOLUME 10.6 FL (7.0-11.0); PLATELET COUNT 325 TH/MM3 (150-450); RED BLOOD COUNT 3.19 MIL/MM3 (4.00-5.30); RED CELL DISTRIBUTION WIDTH 26.6 % (11.6-17.2); WHITE BLOOD COUNT 14.9 TH/MM3 (4.0-11.0)
[2017-09-11 06:36] LABS: BICARBONATE 26.6 MEQ/L (21.0-32.0); CALCIUM 8.3 MG/DL (8.5-10.1)
[2017-09-11 06:39] LABS: CREATININE 0.75 MG/DL (0.50-1.00); DIRECT BILIRUBIN ADULT 0.2 MG/DL (0.0-0.2)
[2017-09-11 06:40] LABS: INDIRECT BILIRUBIN 0.3 MG/DL (0.0-0.8); TOTAL BILIRUBIN ADULT 0.5 MG/DL (0.2-1.0)
[2017-09-11 06:46] LABS: CORRECTED NUCLEATED RBC 34 /100 WBC (0-0); CORRECTED WBC 11.1 TH/MM3 (4.0-11.0); LYMPHOCYTES 15 % (9-44); MONOCYTES 5 % (0-8); NEUTROPHIL # MANUAL DIFF 8.5 TH/MM3 (1.8-7.7); NUCLEATED RED BLOOD CELL 34 (0-0); POLYS (SEG NEUTROPHILS) 77 % (16-70)
[2017-09-11 06:47] LABS: TARGET CELLS 1+ (NORMAL)
[2017-09-11 06:48] LABS: KERATOCYTES OCC (NORMAL); OVALOCYTES 1+ (NORMAL); ROULEAUX PRESENT (NORMAL)
[2017-09-11] MEDS: INSULIN NovoLIN REGULAR SUPPLEMENTAL SCALE SQ SCH ×4 (08:00→21:04)
[2017-09-11] MEDS: PANTOPRAZOLE SOD 40 MG DELAYED RELEASE TAB PO SCH (08:58)
[2017-09-11] MEDS: PARoxetine HCL 20 MG TAB PO SCH (08:58)
[2017-09-11] MEDS: OXYBUTYNIN CHLORIDE 5 MG TAB PO SCH (08:58)
[2017-09-11] MEDS: FOLIC ACID 1 MG TAB PO SCH (08:58)
--- NOTE | 2017-09-11 11:52 | HHI.GIFU ---
GI Follow-up Note Consult Follow-up Subjective: Patient laying in bed comfortably, denies nausea, vomiting .tolerated diet well.No melena, hematemesis, hematochezia. Chronic anemai secondary telangiectasia.Poor prep on recent colonoscopy, ct abdomen pelvis questionable mass in cecum . Lfts improving .She initially was refusing repeat colonoscopy, currently in agreement Objective: PHYSICAL EXAMINATION: Vitals signs stable No fever HEENT: Pupils round and reactive to light; normocephalic; atraumatic; no jaundice. Throat is clear. NECK: Neck is supple, no JVD, no lymphadenopathy. CHEST: Chest is clear to auscultation and percussion. CARDIAC: Regular rate and rhythm with no murmur gallop or rubs. ABDOMEN: Soft, nondistended, nontender; no hepatosplenomegaly; bowel sounds are present in all four quadrants. EXTREMITIES: No clubbing, cyanosis, or edema. SKIN: Normal; no rash; no jaundice. SHOE SPRAYER: No focal deficits; alert and oriented times three. Available Data (labs, X- Rays, Procedues) : Vital Signs Date Time Temp Pulse Resp B/P (MAP) Pulse Ox O2 Delivery O2 Flow Rate FiO2 09/11/17 08:00 90 09/11/17 08:00 99.1 90 20 131/64 (86) 97 09/11/17 07:00 94 Nasal Cannula 1.00 24 09/11/17 06:00 98.0 88 18 129/64 (85) 97 09/11/17 04:00 98.7 90 18 115/50 (71) 96 09/11/17 04:00 92 ASSESSMENT/PLAN: iron deficiency anemia most likely secondary telangiectasias elevated lfts =improving possible secondary statins incomplete colonoscopy secondary poor prep, abnormal ct, concern for possible cecal mass- needs repeat colonoscopy esophagitis, duodenal ulcers-ppi Recommendations slow prep over the weekend colonoscopy Wednesday if still agrees ppi iron supplementations if colon negative consider capsule endoscopy op close monitoring lfts celiac panel,tumor markers It was a pleasure seeing Haylee Altamirano. Thank you for this consult. Entered by: Idania Mcmahan MD Sep 11, 2017 11:52
[2017-09-11] MEDS ORDERED: BISACODYL EC 5 MG TABEC PO ONE (12:00)
[2017-09-11] MEDS ORDERED: MAGNESIUM CITRATE SOLN 300 ML BTL PO ONE (12:00)
[2017-09-11 13:47] LABS: SMOOTH MUSCLE TOTAL AUTOABS Negative (Negative)
[2017-09-11] MEDS: ACETAMINOPHEN/HYDROcodone 325 MG/7.5 MG TAB PO PRN (19:45)
[2017-09-11] MEDS: LISINOPRIL 5 MG TAB PO SCH (21:03)
[2017-09-11] MEDS: INSULIN DETEMIR 100 UNITS/ML VIAL SQ SCH (21:04)
[2017-09-12] VITALS (9 sets, daily range): BP systolic 125–136; BP diastolic 53–63; PULSE 86–97; RESP 17–25; TEMP 97.7–99.7; O2SAT 90–98
--- NOTE | 2017-09-12 05:47 | HHI.PR ---
Subjective Remarks Feeling better. Gradually improving as far as strength. Still a bit unsteady and dyspneic with exertion. Patient has changed her mind regarding colonoscopy and apparently wants a colonoscopy tomorrow morning which is 13 September. She reports several loose stools overnight in preparation for the upcoming colonoscopy. Objective Vitals Vital Signs Date Time Temp Pulse Resp B/P (MAP) Pulse Ox O2 Delivery O2 Flow Rate FiO2 09/12/17 03:24 98.9 96 22 136/61 (86) 90 09/12/17 00:00 98.7 90 22 134/63 (86) 94 09/12/17 00:00 90 09/11/17 22:00 93 18 125/58 (80) 93 09/11/17 20:12 94 21 09/11/17 20:00 101 09/11/17 20:00 98.7 92 24 133/65 (87) 92 09/11/17 19:00 92 Room Air 09/11/17 16:00 98.0 100 24 149/67 (94) 94 09/11/17 16:00 100 09/11/17 12:00 99.0 94 19 95/47 (63) 94 09/11/17 12:00 94 09/11/17 08:00 90 09/11/17 08:00 99.1 90 20 131/64 (86) 97 09/11/17 07:00 94 Nasal Cannula 1.00 24 09/11/17 06:00 98.0 88 18 129/64 (85) 97 GENERAL: a/o, cooperative, NAD SKIN: Warm and dry. HEAD: Normocephalic. EYES: No scleral icterus. No injection or drainage. NECK: Supple, trachea midline. No JVD or lymphadenopathy. CARDIOVASCULAR: Regular rate and rhythm without murmurs, gallops, or rubs. RESPIRATORY: Breath sounds equal bilaterally. No accessory muscle use. GASTROINTESTINAL: Abdomen soft, non-tender, nondistended. No g/r. MUSCULOSKELETAL: No cyanosis, or edema. ARACELIS in place but again declines SCD. BACK: No CVA tenderness. Result Diagram: 09/11/17 0550 09/11/17 0550 Imaging Last Impressions Hepatobiliary Scan Nuclear Medicine 09/09/17 0000 Signed Impressions: Service Date/Time: August 11:20 - CONCLUSION: Hepatocellular dysfunction Bile gastric reflux. No evidence of biliary obstruction or acute cholecystitis Parviz Esposito MD Liver Ultrasound 09/08/17599 Signed Impressions: Service Date/Time: Friday, September 08, 2017 08:18 - CONCLUSION: 1. Mildly increased diffuse hepatic echogenicity without volume loss which may reflect medical liver disease versus hepatic steatosis. 2. Mild gallbladder wall thickening with very trace pericholecystic fluid. This can be routinely seen in patients with chronic liver disease although this reduces ultrasound sensitivity for early acute cholecystitis. If there is significant concern regarding acute cholecystitis, consider HIDA scan to evaluate for cystic duct patency. 3. Slight increased right renal cortical echogenicity which may reflect medical renal disease. Liu Gregorio MD Last Impressions Liver Ultrasound 09/08/17599 Signed Impressions: Service Date/Time: Friday, September 08, 2017 08:18 - CONCLUSION: 1. Mildly increased diffuse hepatic echogenicity without volume loss which may reflect medical liver disease versus hepatic steatosis. 2. Mild gallbladder wall thickening with very trace pericholecystic fluid. This can be routinely seen in patients with chronic liver disease although this reduces ultrasound sensitivity for early acute cholecystitis. If there is significant concern regarding acute cholecystitis, consider HIDA scan to evaluate for cystic duct patency. 3. Slight increased right renal cortical echogenicity which may reflect medical renal disease. Liu Gregorio MD Procedures EGD and colonoscopy (09-10-17) EGD: esophagitis; erythematous gastritis in the gastric antrum; two ulcers ranging between 3-5mm in size were found in the 1st part of the duodenum that were not bleeding, shallow, and clean-based ulcers Colonoscopy: Colonic mucosa was normal, medium internal hemorrhoids Urinary Catheter: No Vascular Central Line Catheter: No A/P Problem List: (1) Iron deficiency anemia ICD Codes: D50.9 - Iron deficiency anemia, unspecified Status: Chronic Plan: IV iron replacement ongoing. Heme/onc on case. Hemoglobin has remained stable after transfusion. (2) Ulcerative colitis ICD Codes: K51.90 - Ulcerative colitis, unspecified, without complications Status: Chronic Plan: Repeat colonoscopy September 13 as patient has changed her mind regarding timing of this procedure. (3) Transaminitis ICD Codes: R74.0 - Nonspecific elevation of levels of transaminase and lactic acid dehydrogenase [LDH] Status: Acute Plan: ? etiology. Hold statins. Appreciate GI input. Outpt w/u. Asymptomatic from GI standpoint. Imaging, labs, GI procedures reviewed. LFTs are improving. (4) DM2 (diabetes mellitus, type 2) ICD Codes: E11.9 - Type 2 diabetes mellitus without complications Plan: Low sugars 09/10/17 likely due to NPO. Sugars elevated last PM as pt was able to eat diet again. Continue Levemir, ssi. Outpt meds once eating diet well at home. (5) GERD with esophagitis ICD Codes: K21.0 - Gastro-esophageal reflux disease with esophagitis Status: Chronic Plan: ppi, EGD noted (6) Hypertension ICD Codes: I10 - Essential (primary) hypertension Status: Chronic Plan: continue tx. Discharge Planning d/c home with HH vs rehab hopefully tomorrow after colonoscopy depending on findings and clinical progress. Problem Qualifiers (1) DM2 (diabetes mellitus, type 2): (2) Hypertension: Qualified Codes: I10 - Essential (primary) hypertension Eduardo Main MD PhD Sep 12, 2017 05:47
[2017-09-12 06:09] LABS: DIRECT BILIRUBIN ADULT 0.2 MG/DL (0.0-0.2)
[2017-09-12 06:11] LABS: INDIRECT BILIRUBIN 0.4 MG/DL (0.0-0.8); TOTAL BILIRUBIN ADULT 0.6 MG/DL (0.2-1.0); TOTAL PROTEIN 6.2 GM/DL (6.4-8.2)
[2017-09-12] MEDS ORDERED: BISACODYL EC 5 MG TABEC PO ONE (06:45)
[2017-09-12] MEDS ORDERED: MAGNESIUM CITRATE SOLN 300 ML BTL PO ONE ×2 (06:45→16:00)
[2017-09-12] MEDS: INSULIN NovoLIN REGULAR SUPPLEMENTAL SCALE SQ SCH ×4 (08:00→20:29)
[2017-09-12] MEDS: FOLIC ACID 1 MG TAB PO SCH (09:00)
[2017-09-12] MEDS: PANTOPRAZOLE SOD 40 MG DELAYED RELEASE TAB PO SCH (09:01)
[2017-09-12] MEDS: OXYBUTYNIN CHLORIDE 5 MG TAB PO SCH (09:01)
[2017-09-12] MEDS: PARoxetine HCL 20 MG TAB PO SCH (09:01)
[2017-09-12 09:34] LABS: CA 19-9 9.4 U/ML (0.0-35.0)
[2017-09-12 10:11] LABS: CARCINOEMBRYONIC ANTIGEN 7.1 NG/ML (0.2-5.0)
[2017-09-12] MEDS: ACETAMINOPHEN/HYDROcodone 325 MG/7.5 MG TAB PO PRN ×2 (11:36→20:23)
--- NOTE | 2017-09-12 18:39 | PD.ONC.PN ---
Subjective Subjective Remarks "I want to know" Feels well. Noted change her mind regarding colonoscopy. Objective Data Date Time Temp Pulse Resp B/P (MAP) Pulse Ox O2 Delivery O2 Flow Rate FiO2 09/12/17 16:00 99.6 94 22 125/58 (80) 95 09/12/17 16:00 94 09/12/17 12:00 86 09/12/17 12:00 99.7 86 17 125/61 (82) 96 09/12/17 08:00 99.2 90 25 125/53 (77) 94 09/12/17 08:00 94 Room Air 09/12/17 08:00 90 09/12/17 07:30 98 Nasal Cannula 2.00 09/12/17 04:00 88 09/12/17 04:00 90 20 94 09/12/17 03:45 90 Nasal Cannula 2.00 09/12/17 03:24 98.9 96 22 136/61 (86) 90 09/12/17 00:00 98.7 90 22 134/63 (86) 94 09/12/17 00:00 90 09/11/17 22:00 93 18 125/58 (80) 93 09/11/17 20:12 94 21 09/11/17 20:00 101 09/11/17 20:00 98.7 92 24 133/65 (87) 92 09/11/17 19:00 92 Room Air 09/12/17 09/12/17 09/12/17 06:59 14:59 22:59 Intake Total 400 ml 2500 ml Balance 400 ml 2500 ml Result Diagram: 09/11/17 0550 09/11/17 0550 Laboratory Results Laboratory Tests Test 09/12/17 05:35 Total Bilirubin 0.6 MG/DL Direct Bilirubin 0.2 MG/DL Indirect Bilirubin 0.4 MG/DL Aspartate Amino Transf (AST/SGOT) 89 U/L Alanine Aminotransferase (ALT/SGPT) 162 U/L Alkaline Phosphatase 288 U/L Total Protein 6.2 GM/DL Albumin 2.0 GM/DL Tumor Marker Alpha Fetoprotein 2.0 NG/ML Carcinoembryonic Antigen 7.1 NG/ML CA 19-9 Antigen 9.4 U/ML Administered Medications Medications (Trade) Dose Ordered Sig/Fatoumata Route PRN Reason Start Time Stop Time Status Last Admin Dose Admin Sodium Chloride (NS Flush) 2 ml UNSCH PRN IVF FLUSH AFTER USING IV ACCESS 09/07/17 10:15 09/10/17 20:12 Glipizide (Glucotrol) 10 mg BIDAC PO 09/07/17 16:00 Future Hold 09/09/17 17:34 Acetaminophen/ Hydrocodone Bitart ([place] 7.5-325 Mg) 1 tab Q4H PRN PO PAIN SCALE 1 TO 10 09/07/17 12:45 09/12/17 11:36 Insulin Detemir (Levemir Inj) 8 units HS SQ 09/07/17 21:00 09/11/17 21:04 Lisinopril (Prinivil) 5 mg HS PO 09/07/17 21:00 09/11/17 21:03 Oxybutynin Chloride (Ditropan) 5 mg DAILY PO 09/08/17 09:00 09/12/17 09:01 Paroxetine HCl (Paxil) 20 mg DAILY PO 09/08/17 09:00 09/12/17 09:01 Folic Acid (Folate) 1 mg DAILY PO 09/07/17 19:00 09/12/17 09:00 Glucagon (Glucagon Inj) 1 mg UNSCH PRN OTHER HYPOGLYCEMIA-SEE COMMENTS 09/07/17 18:30 09/10/17 05:41 Insulin Human Regular (NovoLIN R SUPPLEMENTAL SCALE) 1 ACHS SLIDING SCALE SQ 09/07/17 21:00 09/12/17 16:29 Pantoprazole Sodium (Protonix) 40 mg DAILY PO 09/10/17 15:00 09/12/17 09:01 Objective Remarks GENERAL: Well-nourished, well-developed patient. SKIN: Warm and dry. [place] color, less pale. HEAD: Normocephalic. EYES: No scleral icterus. No injection or drainage. NECK: Supple, trachea midline. No JVD or lymphadenopathy. LYMPHATIC: No adenopathy. CARDIOVASCULAR: Regular rate and rhythm without murmurs. RESPIRATORY: Breath sounds equal bilaterally. No accessory muscle use. GASTROINTESTINAL: Abdomen soft, non-tender, nondistended. EXTREMITIES: No cyanosis, or edema. NEUROLOGICAL: No obvious focal deficit. Awake, alert, and oriented x3. Assessment/Plan Problem List: (1) Anemia ICD Codes: D64.9 - Anemia, unspecified Status: Acute Plan: Pt has Iron Def Anemia. Ferritin 15 suspected from chronic blood loss from telangectatic vessels. Pt had so far 2 units of PRBC and iron sucrose. Hgb stable. Recommend continue iron tx. goal 1.5G, may continue as out pt. Discussed w/ Dr. Muro, reactive leukocytosis will be followed, if anemia do not resolve with tx of iron deficiency consider BM bx. Ok for DC to home from heme onc perspective. Plan to continue iron tx and follow LFT. 09/12/17. Hgb stable, no transfusion however recovery is slow. Continue to follow. 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 09/12/17. Colonoscopy tomorrow. Hold Tamoxifen during in patient. Pt is sedentary in bed, unable to take pharmacologic prophylaxis. Anticipate resume when home. Problem Qualifiers (1) Anemia: Qualified Codes: D50.9 - Iron deficiency anemia, unspecified Glenna Vieyra MD Sep 12, 2017 18:39
[2017-09-12] MEDS: LISINOPRIL 5 MG TAB PO SCH (20:22)
[2017-09-12] MEDS: INSULIN DETEMIR 100 UNITS/ML VIAL SQ SCH (20:29)
[2017-09-13] VITALS (9 sets, daily range): BP systolic 122–149; BP diastolic 52–73; PULSE 90–110; RESP 16–30; TEMP 98.2–99.4; O2SAT 92–95
[2017-09-13 04:54] LABS: HEMATOCRIT 26.8 % (35.0-46.0); HEMOGLOBIN 8.5 GM/DL (11.6-15.3); MEAN CELL VOLUME 78.8 FL (80.0-100.0); MEAN CORPUSCULAR HEMOGLOBIN 25.1 PG (27.0-34.0); MEAN CORPUSCULAR HGB CONC 31.9 % (32.0-36.0); MEAN PLATELET VOLUME 10.4 FL (7.0-11.0); PLATELET COUNT 324 TH/MM3 (150-450); RED CELL DISTRIBUTION WIDTH 31.8 % (11.6-17.2); WHITE BLOOD COUNT 11.7 TH/MM3 (4.0-11.0)
[2017-09-13 05:56] LABS: ALBUMIN 2.3 GM/DL (3.4-5.0); ALKALINE PHOSPHATASE 271 U/L (45-117); ALT (GPT) 147 U/L (10-53); AST (GOT) 64 U/L (15-37); BICARBONATE 27.8 MEQ/L (21.0-32.0); BLOOD UREA NITROGEN 6 MG/DL (7-18); CALCIUM 8.4 MG/DL (8.5-10.1); CHLORIDE 105 MEQ/L (98-107); CREATININE 0.66 MG/DL (0.50-1.00); GLOMERULAR FILTRATION RATE 87 ML/MIN (>89); GLUCOSE,RANDOM 55 MG/DL (74-106); SODIUM (NA) 140 MEQ/L (136-145); TOTAL BILIRUBIN ADULT 0.7 MG/DL (0.2-1.0); TOTAL PROTEIN 6.9 GM/DL (6.4-8.2)
[2017-09-13 06:15] LABS: CORRECTED NUCLEATED RBC 7 /100 WBC (0-0); CORRECTED WBC 10.9 TH/MM3 (4.0-11.0); LYMPHOCYTES 8 % (9-44); MONOCYTES 12 % (0-8); NEUTROPHIL # MANUAL DIFF 8.6 TH/MM3 (1.8-7.7); NUCLEATED RED BLOOD CELL 7 (0-0); POLYS (SEG NEUTROPHILS) 79 % (16-70)
[2017-09-13 06:16] LABS: OVALOCYTES 1+ (NORMAL); TARGET CELLS 2+ (NORMAL)
[2017-09-13 06:17] LABS: KERATOCYTES OCC (NORMAL)
[2017-09-13] MEDS ORDERED: POTASSIUM CHLOR 20 MEQ PREMIX 100 ML IV ONE (06:30)
--- NOTE | 2017-09-13 06:37 | HHI.PR ---
Subjective Remarks Loose stools o/n in response to bowel prep. Colonoscopy today. Overall stable and desirous of d/c. Objective Vitals Vital Signs Date Time Temp Pulse Resp B/P (MAP) Pulse Ox O2 Delivery O2 Flow Rate FiO2 09/13/17 04:00 94 09/13/17 00:00 98.2 90 16 122/52 (75) 95 09/13/17 00:00 90 09/12/17 21:00 95 21 09/12/17 20:00 97.7 97 20 125/58 (80) 95 09/12/17 20:00 95 Room Air 09/12/17 20:00 95 09/12/17 16:00 99.6 94 22 125/58 (80) 95 09/12/17 16:00 94 09/12/17 12:00 86 09/12/17 12:00 99.7 86 17 125/61 (82) 96 09/12/17 08:00 99.2 90 25 125/53 (77) 94 09/12/17 08:00 94 Room Air 09/12/17 08:00 90 09/12/17 07:30 98 Nasal Cannula 2.00 GENERAL: sleeping, arouses to voice, a/o, cooperative, NAD SKIN: Warm and dry. HEAD: Normocephalic. EYES: No scleral icterus. No injection or drainage. NECK: Supple, trachea midline. No JVD or lymphadenopathy. CARDIOVASCULAR: Regular rate and rhythm without murmurs, gallops, or rubs. Rate in upper 80s on exam. RESPIRATORY: Breath sounds equal bilaterally. No accessory muscle use. GASTROINTESTINAL: Abdomen soft, non-tender, nondistended. No g/r. BS slightly hyperactive. MUSCULOSKELETAL: No cyanosis, or edema. ARACELIS in place but again declines SCD. BACK: No CVA tenderness. Result Diagram: 09/13/17 0422 09/13/17 0422 Imaging Last Impressions Hepatobiliary Scan Nuclear Medicine 09/09/17 0000 Signed Impressions: Service Date/Time: August 11:20 - CONCLUSION: Hepatocellular dysfunction Bile gastric reflux. No evidence of biliary obstruction or acute cholecystitis Parviz Esposito MD Liver Ultrasound 09/08/17 0600 Signed Impressions: Service Date/Time: Friday, September 08, 2017 08:18 - CONCLUSION: 1. Mildly increased diffuse hepatic echogenicity without volume loss which may reflect medical liver disease versus hepatic steatosis. 2. Mild gallbladder wall thickening with very trace pericholecystic fluid. This can be routinely seen in patients with chronic liver disease although this reduces ultrasound sensitivity for early acute cholecystitis. If there is significant concern regarding acute cholecystitis, consider HIDA scan to evaluate for cystic duct patency. 3. Slight increased right renal cortical echogenicity which may reflect medical renal disease. Liu Gregorio MD Last Impressions Liver Ultrasound 09/08/17 0600 Signed Impressions: Service Date/Time: Friday, September 08, 2017 08:18 - CONCLUSION: 1. Mildly increased diffuse hepatic echogenicity without volume loss which may reflect medical liver disease versus hepatic steatosis. 2. Mild gallbladder wall thickening with very trace pericholecystic fluid. This can be routinely seen in patients with chronic liver disease although this reduces ultrasound sensitivity for early acute cholecystitis. If there is significant concern regarding acute cholecystitis, consider HIDA scan to evaluate for cystic duct patency. 3. Slight increased right renal cortical echogenicity which may reflect medical renal disease. Liu Gregorio MD Procedures EGD and colonoscopy (09-10-17) EGD: esophagitis; erythematous gastritis in the gastric antrum; two ulcers ranging between 3-5mm in size were found in the 1st part of the duodenum that were not bleeding, shallow, and clean-based ulcers Colonoscopy: Colonic mucosa was normal, medium internal hemorrhoids Urinary Catheter: No Vascular Central Line Catheter: No A/P Problem List: (1) Iron deficiency anemia ICD Codes: D50.9 - Iron deficiency anemia, unspecified Status: Chronic Plan: IV iron replacement ongoing. Heme/onc on case. Hemoglobin has remained stable after transfusion. (2) Ulcerative colitis ICD Codes: K51.90 - Ulcerative colitis, unspecified, without complications Status: Chronic Plan: Repeat colonoscopy September 13 as patient has changed her mind regarding timing of this procedure. Should be done around noon today. (3) Transaminitis ICD Codes: R74.0 - Nonspecific elevation of levels of transaminase and lactic acid dehydrogenase [LDH] Status: Acute Plan: ? etiology. Hold statins. Appreciate GI input. Outpt w/u. Asymptomatic from GI standpoint. Imaging, labs, GI procedures reviewed. LFTs are improving. (4) DM2 (diabetes mellitus, type 2) ICD Codes: E11.9 - Type 2 diabetes mellitus without complications Plan: Low sugars 09/10/17 and again 09/13 likely due to NPO. Will hold Levemir today. Replace sugar per protocol. SSI in place as needed. Outpt meds once eating diet well at home. (5) GERD with esophagitis ICD Codes: K21.0 - Gastro-esophageal reflux disease with esophagitis Status: Chronic Plan: ppi, EGD noted (6) Hypertension ICD Codes: I10 - Essential (primary) hypertension Status: Chronic Plan: continue tx. (7) Hypokalemia due to loss of potassium ICD Codes: E87.6 - Hypokalemia Status: Acute Plan: replace and recheck. Likely due to bowel prep regimen. Discharge Planning d/c home with HH vs rehab hopefully tomorrow 09/14 depending on findings and clinical progress. Problem Qualifiers (1) DM2 (diabetes mellitus, type 2): (2) Hypertension: Qualified Codes: I10 - Essential (primary) hypertension Eduardo Main MD PhD Sep 13, 2017 06:37
[2017-09-13] MEDS: SODIUM CHLORIDE 0.9% FLUSH 10 ML FLUSH IVF PRN ×2 (07:01→20:57)
[2017-09-13] MEDS: INSULIN NovoLIN REGULAR SUPPLEMENTAL SCALE SQ SCH ×4 (08:00→20:54)
[2017-09-13] MEDS: PANTOPRAZOLE SOD 40 MG DELAYED RELEASE TAB PO SCH (10:39)
[2017-09-13] MEDS: FOLIC ACID 1 MG TAB PO SCH (10:39)
[2017-09-13] MEDS: PARoxetine HCL 20 MG TAB PO SCH (10:39)
[2017-09-13] MEDS: OXYBUTYNIN CHLORIDE 5 MG TAB PO SCH (10:39)
[2017-09-13] MEDS ORDERED: PROPOFOL 200 MG/20 ML AMP IV ONE (12:00)
[2017-09-13] MEDS: ACETAMINOPHEN/HYDROcodone 325 MG/7.5 MG TAB PO PRN ×2 (13:40→22:45)
[2017-09-13] MEDS ORDERED: POTASSIUM CHLORIDE 20 MEQ CONTROLLED RELEASE TAB PO ONE (15:00)
[2017-09-13] MEDS ORDERED: CHLORHEXIDINE GLUCONATE 2 % 1 PACK (2 CLOTHS) TOPICAL PRN (15:15)
[2017-09-13] MEDS ORDERED: POVIDONE IODINE 5% (ANTISEPSIS KIT) 4 APPLICATIONS EACH NARE PRN (15:15)
[2017-09-13] MEDS ORDERED: METOPROLOL TARTRATE 25 MG TAB PO PRN (15:15)
[2017-09-13] MEDS ORDERED: LACTATED RINGER'S 1000 ML IV PRN (15:15)
[2017-09-13] MEDS ORDERED: SODIUM CHLORID 0.9% 500 ML IV PRN (15:15)
--- NOTE | 2017-09-13 15:43 | PD.PROCEDR ---
GI Procedure PROCEDURE PERFORMED Colonoscopy with biopsy INDICATION FOR PROCEDURE Anemia, abnormal CT scan of the cecum PROCEDURE: The procedure, risks and benefits were discussed with Ms. Altamirano and informed consent was obtained. Anesthesia sedated her with Diprivan. She was placed in the left lateral decubitus position. Colonoscopy: The Pentax videoscope was introduced through the rectum and advanced to cecum and terminal ileum biopsy from the ileocecal valve. Retroflexion was performed in the rectum. Colonic prep was fair with some area of up suboptimal prep may interfere with the vision of small lesions such as small polyps or mucosal lesions ESTIMATED BLOOD LOSS: None SPECIMENS REMOVED: Ileocecal valve COMPLICATIONS: None IMPRESSION: Some stool throughout the colon may interfere with the vision of small lesions Prominent ileocecal valve that's going in and out with contractions biopsy was done to rule out polyp in that area Scattered rare diverticulosis Small hemorrhoid PLAN: May feed patient Await biopsy results Colonoscopy in 3-6 month Follow up as an outpatient in few weeks Abraham Choudhary MD Sep 13, 2017 15:43
--- NOTE | 2017-09-13 15:48 | HHI.GIFU ---
Subjective Remarks Patient is laying in bed comfortably, no significant new complaint, took another prep. No sign of active bleeding Objective Vitals I&O Vital Signs Date Time Temp Pulse Resp B/P (MAP) Pulse Ox O2 Delivery O2 Flow Rate FiO2 09/13/17 14:50 99.3 90 20 135/64 (87) 94 09/13/17 12:00 102 09/13/17 12:00 99.4 104 23 135/64 (87) 93 09/13/17 08:00 98 09/13/17 08:00 99.2 94 24 149/68 (95) 94 09/13/17 07:00 94 Room Air 09/13/17 06:00 98.4 110 16 137/61 (86) 94 09/13/17 04:00 94 09/13/17 00:00 98.2 90 16 122/52 (75) 95 09/13/17 00:00 90 09/12/17 21:00 95 21 09/12/17 20:00 97.7 97 20 125/58 (80) 95 09/12/17 20:00 95 Room Air 09/12/17 20:00 95 09/12/17 16:00 99.6 94 22 125/58 (80) 95 09/12/17 16:00 94 I/O 09/12/17 09/12/17 09/12/17 09/13/17 09/13/17 09/13/17 07:00 15:00 23:00 07:00 15:00 23:00 Intake Total 400 ml 2500 ml Output Total 550 ml Balance 400 ml 2500 ml -550 ml Intake Oral 400 ml 2500 ml Output Urine Total 550 ml # Voids 2 10 5 1 # Bowel Movements 1 4 4 1 Laboratory Laboratory Tests Test 09/13/17 04:22 09/13/17 12:15 White Blood Count 11.7 Corrected White Blood Count 10.9 Red Blood Count 3.40 Hemoglobin 8.5 Hematocrit 26.8 Mean Corpuscular Volume 78.8 Mean Corpuscular Hemoglobin 25.1 Mean Corpuscular Hemoglobin Concent 31.9 Red Cell Distribution Width 31.8 Platelet Count 324 Mean Platelet Volume 10.4 CBC Comment AUTO DIFF Differential Total Cells Counted 100 Neutrophils % (Manual) 79 Lymphocytes % 8 Monocytes % 12 Eosinophils % 1 Neutrophils # (Manual) 8.6 Nucleated Red Blood Cells 7 Differential Comment FINAL DIFF MANUAL Platelet Estimate NORMAL Platelet Morphology Comment NORMAL Target Cells 2+ Ovalocytes 1+ Keratocytes OCC Blood Urea Nitrogen 6 Creatinine 0.66 Random Glucose 55 Total Protein 6.9 Albumin 2.3 Calcium Level 8.4 Alkaline Phosphatase 271 Aspartate Amino Transf (AST/SGOT) 64 Alanine Aminotransferase (ALT/SGPT) 147 Total Bilirubin 0.7 Sodium Level 140 Potassium Level 2.7 3.3 Chloride Level 105 Carbon Dioxide Level 27.8 Anion Gap 7 Estimat Glomerular Filtration Rate 87 Physical Exam HEENT: Pupils round and reactive to light; normocephalic; atraumatic; no jaundice. Throat is clear. NECK: Neck is supple, no JVD, no lymphadenopathy. CHEST: Chest is clear to auscultation and percussion. CARDIAC: Regular rate and rhythm with no murmur gallop or rubs. ABDOMEN: Soft, nondistended, nontender; no hepatosplenomegaly; bowel sounds are present in all four quadrants. EXTREMITIES: No clubbing, cyanosis, or edema. SKIN: Normal; no rash; no jaundice. ORTHOTICS PROSTHETICS TECHNICIAN: No focal deficits; alert and oriented times three. Assessment and Plan Assessment: (1) Ulcerative colitis ICD Codes: K51.90 - Ulcerative colitis, unspecified, without complications Status: Chronic (2) Polyp of colon ICD Codes: K63.5 - Polyp of colon Status: Resolved (3) Anemia ICD Codes: D64.9 - Anemia, unspecified Status: Acute (4) Telangiectasia disorder ICD Codes: I78.9 - Disease of capillaries, unspecified Status: Acute (5) Transaminitis ICD Codes: R74.0 - Nonspecific elevation of levels of transaminase and lactic acid dehydrogenase [LDH] Status: Acute Plan 09/13/2017 1. Elevated liver function tests, questionable etiology, workup in progress with labs 2 - Anemia, upper endoscopy was done on Wednesday which showed 2 small ulcers and gastritis and esophagitis we will continue PPI, colonoscopy was done today IMPRESSION: Some stool throughout the colon may interfere with the vision of small lesions Prominent ileocecal valve that's going in and out with contractions biopsy was done to rule out polyp in that area Scattered rare diverticulosis Small hemorrhoid PLAN: May feed patient Await biopsy results Colonoscopy in 3-6 month Follow up as an outpatient in few weeks Consider capsule endoscopy as an outpatient Await the remaining of the liver labs for workup of elevated liver function test Problem Qualifiers (1) Polyp of colon: (2) Anemia: Qualified Codes: D50.9 - Iron deficiency anemia, unspecified Abraham Choudhary MD Sep 13, 2017 15:48
[2017-09-13] MEDS: LISINOPRIL 5 MG TAB PO SCH (20:57)
--- NOTE | 2017-09-13 22:56 | EKG ---
Date Performed: 09/13/2017 Time Performed: 01:07:04 PTAGE: 77 years EKG: SINUS TACHYCARDIA WITH FREQUENT SUPRAVENTRICULAR PREMATURE COMPLEXES POSSIBLE ANTERIOR MYOC ARDIAL INFARCTION INFERIOR MYOCARDIAL INFARCTION ABNORMAL ECG PREVIOUS TRACING : 07/30/2012 21.48 DOCTOR: Anna Grover Interpretating Date/Time 09/13/2017 22:50:51
[2017-09-14] VITALS: BP 123/60; PULSE 103; PULSE 96; RESP 26; TEMP 98.6; O2SAT 95
[2017-09-14 04:00] VITALS: BP 118/58; PULSE 92; RESP 14; TEMP 98.3; O2SAT 95
[2017-09-14 04:57] LABS: HEMATOCRIT 26.4 % (35.0-46.0); HEMOGLOBIN 7.9 GM/DL (11.6-15.3); MEAN CELL VOLUME 78.8 FL (80.0-100.0); MEAN CORPUSCULAR HEMOGLOBIN 23.5 PG (27.0-34.0); MEAN PLATELET VOLUME 10.4 FL (7.0-11.0); PLATELET COUNT 292 TH/MM3 (150-450); RED BLOOD COUNT 3.35 MIL/MM3 (4.00-5.30); RED CELL DISTRIBUTION WIDTH 35.8 % (11.6-17.2)
[2017-09-14 05:00] LABS: MEAN CORPUSCULAR HGB CONC 29.8 % (32.0-36.0)
[2017-09-14 05:11] LABS: CHLORIDE 106 MEQ/L (98-107); SODIUM (NA) 139 MEQ/L (136-145)
[2017-09-14 05:13] LABS: CALCIUM 8.1 MG/DL (8.5-10.1)
[2017-09-14 05:14] LABS: ALBUMIN 2.1 GM/DL (3.4-5.0); BICARBONATE 25.6 MEQ/L (21.0-32.0); BLOOD UREA NITROGEN 9 MG/DL (7-18); GLUCOSE,RANDOM 135 MG/DL (74-106)
[2017-09-14 05:17] LABS: ALT (GPT) 112 U/L (10-53); AST (GOT) 60 U/L (15-37); CREATININE 0.75 MG/DL (0.50-1.00); GLOMERULAR FILTRATION RATE 75 ML/MIN (>89)
[2017-09-14 05:19] LABS: TOTAL BILIRUBIN ADULT 0.6 MG/DL (0.2-1.0); TOTAL PROTEIN 6.2 GM/DL (6.4-8.2)
[2017-09-14 05:20] LABS: ALKALINE PHOSPHATASE 249 U/L (45-117)
--- NOTE | 2017-09-14 06:49 | HHI.PR ---
Subjective Remarks Overall much improved and desires d/c home. PT note indicates increased strength and less need for assistance with mobility. Pt desires d/c home and doesn't want to go to rehab unless absolutely necessary. She is tolerating oral intake well. VSS and labs stable. Objective Vitals Vital Signs Date Time Temp Pulse Resp B/P (MAP) Pulse Ox O2 Delivery O2 Flow Rate FiO2 09/14/17 04:00 98.3 92 14 118/58 (78) 95 09/14/17 04:00 92 09/14/17 00:00 96 09/14/17 00:00 98.6 103 26 123/60 (81) 95 09/13/17 21:40 95 09/13/17 20:00 94 Room Air 09/13/17 20:00 103 09/13/17 20:00 99.4 101 30 122/62 (82) 93 09/13/17 16:20 90 16 134/65 (88) 98 09/13/17 16:05 95 16 134/65 (88) 98 09/13/17 16:00 100 09/13/17 16:00 99.2 100 27 130/73 (92) 92 09/13/17 15:55 98.8 94 18 121/69 (86) 99 09/13/17 14:50 99.3 90 20 135/64 (87) 94 09/13/17 12:00 102 09/13/17 12:00 99.4 104 23 135/64 (87) 93 09/13/17 08:00 98 09/13/17 08:00 99.2 94 24 149/68 (95) 94 09/13/17 07:00 94 Room Air GENERAL: awake, a/o, cooperative, NAD, desires d/c. SKIN: Warm and dry. HEAD: Normocephalic. EYES: No scleral icterus. No injection or drainage. NECK: Supple, trachea midline. No JVD or lymphadenopathy. CARDIOVASCULAR: Regular rate and rhythm without murmurs, gallops, or rubs. RESPIRATORY: Breath sounds equal bilaterally. No accessory muscle use. Few course BS in bases which improved with deep breathing. GASTROINTESTINAL: Abdomen soft, non-tender, nondistended. No g/r. BS wnl. MUSCULOSKELETAL: No cyanosis, or edema. ARACELIS in place but again declines SCD. BACK: No CVA tenderness. Result Diagram: 09/14/17 0435 09/14/17 0435 Imaging Last Impressions Hepatobiliary Scan Nuclear Medicine 09/09/17 0000 Signed Impressions: Service Date/Time: August 11:20 - CONCLUSION: Hepatocellular dysfunction Bile gastric reflux. No evidence of biliary obstruction or acute cholecystitis Parviz Esposito MD Liver Ultrasound 09/08/17 0600 Signed Impressions: Service Date/Time: Friday, September 08, 2017 08:18 - CONCLUSION: 1. Mildly increased diffuse hepatic echogenicity without volume loss which may reflect medical liver disease versus hepatic steatosis. 2. Mild gallbladder wall thickening with very trace pericholecystic fluid. This can be routinely seen in patients with chronic liver disease although this reduces ultrasound sensitivity for early acute cholecystitis. If there is significant concern regarding acute cholecystitis, consider HIDA scan to evaluate for cystic duct patency. 3. Slight increased right renal cortical echogenicity which may reflect medical renal disease. Liu Gregorio MD Last Impressions Liver Ultrasound 09/08/17 0600 Signed Impressions: Service Date/Time: Friday, September 08, 2017 08:18 - CONCLUSION: 1. Mildly increased diffuse hepatic echogenicity without volume loss which may reflect medical liver disease versus hepatic steatosis. 2. Mild gallbladder wall thickening with very trace pericholecystic fluid. This can be routinely seen in patients with chronic liver disease although this reduces ultrasound sensitivity for early acute cholecystitis. If there is significant concern regarding acute cholecystitis, consider HIDA scan to evaluate for cystic duct patency. 3. Slight increased right renal cortical echogenicity which may reflect medical renal disease. Liu Gregorio MD Procedures EGD and colonoscopy (09-10-17) EGD: esophagitis; erythematous gastritis in the gastric antrum; two ulcers ranging between 3-5mm in size were found in the 1st part of the duodenum that were not bleeding, shallow, and clean-based ulcers Colonoscopy: Colonic mucosa was normal, medium internal hemorrhoids Urinary Catheter: No Vascular Central Line Catheter: No A/P Problem List: (1) Iron deficiency anemia ICD Codes: D50.9 - Iron deficiency anemia, unspecified Status: Chronic Plan: IV iron replacement ongoing. Heme/onc on case. Hemoglobin has remained stable after transfusion. (2) Ulcerative colitis ICD Codes: K51.90 - Ulcerative colitis, unspecified, without complications Status: Chronic Plan: Repeat colonoscopy September 13 essentially unrevealing. (3) Transaminitis ICD Codes: R74.0 - Nonspecific elevation of levels of transaminase and lactic acid dehydrogenase [LDH] Status: Acute Plan: ? etiology. Hold statins. Appreciate GI input. Outpt w/u. Asymptomatic from GI standpoint. Imaging, labs, GI procedures reviewed. LFTs are improving. (4) DM2 (diabetes mellitus, type 2) ICD Codes: E11.9 - Type 2 diabetes mellitus without complications Plan: Low sugars 09/10/17 and again 09/13 likely due to NPO. Sugars elevated again not that pt is taking oral intake. Will resume home meds. (5) GERD with esophagitis ICD Codes: K21.0 - Gastro-esophageal reflux disease with esophagitis Status: Chronic Plan: ppi, EGD noted (6) Hypertension ICD Codes: I10 - Essential (primary) hypertension Status: Chronic Plan: continue tx. (7) Hypokalemia due to loss of potassium ICD Codes: E87.6 - Hypokalemia Status: Acute Plan: Likely due to bowel prep regimen. K+ improved with replacement. Discharge Planning d/c home with HH later today as her strength is improving and she desires home vs rehab. Problem Qualifiers (1) DM2 (diabetes mellitus, type 2): (2) Hypertension: Qualified Codes: I10 - Essential (primary) hypertension Eduardo Main MD PhD Sep 14, 2017 06:49
[2017-09-14] MEDS ORDERED: ATOR40TA16 PO (06:54)
[2017-09-14] MEDS ORDERED: VITA1000 PO (06:56)
--- NOTE | 2017-09-14 07:11 | HHI.DS ---
Discharge Summary Admission Date Sep 08, 2017 at 06:17 Discharge Date: Sep 14, 2017 Admitting Diagnosis Anemia; Weakness; Transaminitis (1) Iron deficiency anemia Diagnosis: Principal ICD Codes: D50.9 - Iron deficiency anemia, unspecified Status: Chronic (2) Ulcerative colitis Diagnosis: Secondary ICD Codes: K51.90 - Ulcerative colitis, unspecified, without complications Status: Chronic (3) Transaminitis Diagnosis: Principal ICD Codes: R74.0 - Nonspecific elevation of levels of transaminase and lactic acid dehydrogenase [LDH] Status: Acute (4) DM2 (diabetes mellitus, type 2) Diagnosis: Secondary ICD Codes: E11.9 - Type 2 diabetes mellitus without complications (5) GERD with esophagitis Diagnosis: Secondary ICD Codes: K21.0 - Gastro-esophageal reflux disease with esophagitis Status: Chronic (6) Hypertension Diagnosis: Secondary ICD Codes: I10 - Essential (primary) hypertension Status: Chronic (7) Hypokalemia due to loss of potassium Diagnosis: Secondary ICD Codes: E87.6 - Hypokalemia Status: Acute Consultants Dr De La Cruz, GI Dr Vieyra, heme/onc Procedures EGD and colonoscopy (09-10-17) EGD: esophagitis; erythematous gastritis in the gastric antrum; two ulcers ranging between 3-5mm in size were found in the 1st part of the duodenum that were not bleeding, shallow, and clean-based ulcers Colonoscopy: Colonic mucosa was normal, medium internal hemorrhoids Colonoscopy 09/13/17- no significant lesions, few diverticuli, hemorrhoids, bx taken of IC valve area Brief History This is a 77-year-old white female who came to the emergency room because she has been feeling weaker especially over the last week. Her son noted her to be a little more pale. She has had anemia in the past and has had blood transfusions, but it has been a little over a year since her last blood transfusion. She has been followed by a investigator fraud, Dr. Vieyra. She denied any actual shortness of breath. No chest pain, just generally weaker when she would walk. She has not had any blood in her stools that she is visibly seeing or black stools. Her stools have been brown. She has had no vomiting or abdominal pain or hematemesis. When she came in the ED, her hemoglobin was low at 4.3 low red cell indices. She is admitted for a blood transfusion. CBC/BMP: 09/14/17 0435 09/14/17 0435 Significant Findings Laboratory Tests Test 09/12/17 05:35 09/13/17 04:22 09/13/17 12:15 09/14/17 04:35 Aspartate Amino Transf (AST/SGOT) 89 U/L (15-37) 64 U/L (15-37) 60 U/L (15-37) Alanine Aminotransferase (ALT/SGPT) 162 U/L (10-53) 147 U/L (10-53) 112 U/L (10-53) Alkaline Phosphatase 288 U/L (45-117) 271 U/L (45-117) 249 U/L (45-117) Total Protein 6.2 GM/DL (6.4-8.2) 6.2 GM/DL (6.4-8.2) Albumin 2.0 GM/DL (3.4-5.0) 2.3 GM/DL (3.4-5.0) 2.1 GM/DL (3.4-5.0) Carcinoembryonic Antigen 7.1 NG/ML (0.2-5.0) White Blood Count 11.7 TH/MM3 (4.0-11.0) Red Blood Count 3.40 MIL/MM3 (4.00-5.30) 3.35 MIL/MM3 (4.00-5.30) Hemoglobin 8.5 GM/DL (11.6-15.3) 7.9 GM/DL (11.6-15.3) Hematocrit 26.8 % (35.0-46.0) 26.4 % (35.0-46.0) Mean Corpuscular Volume 78.8 FL (80.0-100.0) 78.8 FL (80.0-100.0) Mean Corpuscular Hemoglobin 25.1 PG (27.0-34.0) 23.5 PG (27.0-34.0) Mean Corpuscular Hemoglobin Concent 31.9 % (32.0-36.0) 29.8 % (32.0-36.0) Red Cell Distribution Width 31.8 % (11.6-17.2) 35.8 % (11.6-17.2) Neutrophils % (Manual) 79 % (16-70) Lymphocytes % 8 % (9-44) Monocytes % 12 % (0-8) Neutrophils # (Manual) 8.6 TH/MM3 (1.8-7.7) Nucleated Red Blood Cells 7 /100 WBC (0-0) Target Cells 2+ (NORMAL) Ovalocytes 1+ (NORMAL) Keratocytes OCC (NORMAL) Blood Urea Nitrogen 6 MG/DL (7-18) Random Glucose 55 MG/DL (74-106) 135 MG/DL (74-106) Calcium Level 8.4 MG/DL (8.5-10.1) 8.1 MG/DL (8.5-10.1) Potassium Level 2.7 MEQ/L (3.5-5.1) 3.3 MEQ/L (3.5-5.1) Estimat Glomerular Filtration Rate 87 ML/MIN (>89) 75 ML/MIN (>89) Imaging Last Impressions Abdomen/Pelvis CT 09/10/17 0000 Signed Impressions: Service Date/Time: Sunday, September 10, 2017 16:40 - CONCLUSION: Abnormal cecum. 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 Robert Galvez MD FACR Hepatobiliary Scan Nuclear Medicine 09/09/17 0000 Signed Impressions: Service Date/Time: August 11:20 - CONCLUSION: Hepatocellular dysfunction Bile gastric reflux. No evidence of biliary obstruction or acute cholecystitis Parviz Esposito MD Liver Ultrasound 09/08/17 0600 Signed Impressions: Service Date/Time: Friday, September 08, 2017 08:18 - CONCLUSION: 1. Mildly increased diffuse hepatic echogenicity without volume loss which may reflect medical liver disease versus hepatic steatosis. 2. Mild gallbladder wall thickening with very trace pericholecystic fluid. This can be routinely seen in patients with chronic liver disease although this reduces ultrasound sensitivity for early acute cholecystitis. If there is significant concern regarding acute cholecystitis, consider HIDA scan to evaluate for cystic duct patency. 3. Slight increased right renal cortical echogenicity which may reflect medical renal disease. Liu Gregorio MD Hospital Course Pt admitted for severe anemia as noted above. She was transfused 2 units PRBCs and started on IV iron infusion. Hb improved to 7-8 range and remained stable remainder of hospital course. She was evaluated by heme/onc and GI. EGD/colonoscopy done 09/10/17 and repeat colonoscopy done 09/13/17 due to poor prep. See procedure section for details. Her sugars were a bit low on a couple of occasions due to NPO/bowel prep for GI procedures. She quickly responded to glucose supplement and holding of hypoglycemic meds. LFTs noted to be elevated as well. HIDA and u/s not very revealing as to etiology. Hep panel neg. GI ordered additional labs which are still pending. Her statin was held and LFTs improved markedly over last few days of hospitalization. Pt's strength and ability to ambulate improved as well. She was tolerating oral intake well. We offered short stay in rehab, but she much preferred home with . Pt Condition on Discharge: Stable Discharge Disposition: Disch w/ Home Health Serv Discharge Instructions DIET: Follow Instructions for: Diabetic Diet Activities you can perform: Weight Bearing as Roni, See Additionl Instruction Other Activity Instructions: start activities slowly and advance as tolerated. Fall precautions. Change positions from lying to standing or sit to stand slowly Follow up Referrals: Gastroenterology Oncology/Hematology PCP Follow-up New Orders: CBC WITH DIFF - 2 Days COMP MET PROF (CMP) - 2 Days Home Health Care - Daily New Medications: Cholecalciferol (Vitamin D-1000) 1,000 Unit Tab 5000 UNITS PO DAILY for Nutritional Supplement, #1 BOTTLE 0 Refills Continued Medications: Glipizide (Glipizide) 10 Mg Tab 10 MG PO BIDAC for Blood Sugar Management, #60 TAB 0 Refills Take 30 minutes before a meal Hydrocodone-Acetaminophen (Hydrocodone-Acetaminophen) 7.5 Mg-325 Mg Tab 1 TAB PO Q4H PRN for PAIN, TAB 0 Refills Insulin Detemir Inj (Levemir Inj) 1,000 unit/ 10 ML Vial 8 UNITS SQ HS for Blood Sugar Management, VIAL 0 Refills Do not mix with any other Insulin. Lisinopril (Lisinopril) 5 Mg Tab 5 MG PO HS for Blood Pressure Management, #30 TAB 0 Refills Metformin (Metformin) 500 Mg Tab 500 MG PO BIDPC for Blood Sugar Management, #60 TAB 0 Refills Oxybutynin (Ditropan) 5 Mg Tab 5 MG PO DAILY for Urinary Symptom Managemen, #60 TAB 0 Refills Paroxetine (Paroxetine) 20 Mg Tab 20 MG PO DAILY, #30 TAB 0 Refills Tamoxifen (Tamoxifen) 10 Mg Tab 5 MG PO BID for Chemotherapy Management, #60 TAB 0 Refills Discontinued Medications: Atorvastatin (Atorvastatin) 40 Mg Tab 40 MG PO HS for Cholesterol Management, #30 TAB 0 Refills Additional Information Advance activity as tolerated. Return for increased sob, fever, acute changes Eduardo Main MD PhD Sep 14, 2017 07:10
--- NOTE | 2017-09-14 07:12 | HHI.FF ---
Face to Face Verification Diagnosis: (1) Iron deficiency anemia (2) Transaminitis (3) DM2 (diabetes mellitus, type 2) Physical Therapy Order: Evaluate and Treat, Improve ambulation, Strength and gait training Home Health Nursing Order: Medical education Diabetic education Nursing assessment with vital signs Instructions: Please draw labs on 09/16/17. I have seen patient Haylee Altamirano on 09/14/17. My clinical findings support the need for the requested home health care services because: Ltd mobility - disease progression Deconditioned w/ increased weakness High risk of falls I certify that my clinical findings support that this patient is homebound because: Unsteady gait/balance Unsafe to leave home unassisted Eduardo Main MD PhD Sep 14, 2017 07:12
[2017-09-14] MEDS: PANTOPRAZOLE SOD 40 MG DELAYED RELEASE TAB PO SCH (07:53)
[2017-09-14] MEDS: FOLIC ACID 1 MG TAB PO SCH (07:53)
[2017-09-14] MEDS: OXYBUTYNIN CHLORIDE 5 MG TAB PO SCH (07:53)
[2017-09-14] MEDS: INSULIN NovoLIN REGULAR SUPPLEMENTAL SCALE SQ SCH ×2 (07:53→11:51)
[2017-09-14] MEDS: PARoxetine HCL 20 MG TAB PO SCH (07:53)
[2017-09-14 08:00] VITALS: BP 150/65; PULSE 102; RESP 22; TEMP 99.1; O2SAT 95
[2017-09-14 09:15] VITALS: O2SAT 95
[2017-09-14 12:00] VITALS: BP 137/62; PULSE 114; RESP 18; TEMP 99.2; O2SAT 98
[2017-09-14] MEDS ORDERED: PROPOFOL 200 MG/20 ML AMP IV ONE (12:00)
[2017-09-14] MEDS ORDERED: LIDOCAINE HCL 1% PF 5 ML SYRINGE OTHER ONE (12:00)
[2017-09-15 15:53] LABS: ENDOMYSIAL AB SCREEN ND (NEGATIVE); ENDOMYSIAL AB TITER ND (<1:5)
[2017-09-16 23:53] LABS: MITOCHONDRIAL ABS LESS THAN 20.0 U (<=20.0)
== END 2017-09-14 13:00 | disposition home health service (06) | DRG 812 ==
LOC: PHED 09:35 → INTOOBSV 10:56 → PHEDA 10:56 → PHICU 11:41 → OBSVTOIN 09-08 06:17
PROVIDERS: ADMIT Family Medicine; ATTEND Family Medicine
PROC: 30233N1 Transfusion of Nonautologous Red Blood Cells into Peripheral Vein, Percutaneous Approach (ICD-10-PCS; principal; 2017-09-07)
PROC: 0DJD8ZZ Inspection of Lower Intestinal Tract, Via Natural or Artificial Opening Endoscopic (ICD-10-PCS; 2017-09-10)
PROC: 0DB98ZX Excision of Duodenum, Via Natural or Artificial Opening Endoscopic, Diagnostic (ICD-10-PCS; 2017-09-10)
PROC: 0DB68ZX Excision of Stomach, Via Natural or Artificial Opening Endoscopic, Diagnostic (ICD-10-PCS; 2017-09-10)
PROC: 0DB58ZX Excision of Esophagus, Via Natural or Artificial Opening Endoscopic, Diagnostic (ICD-10-PCS; 2017-09-10)
PROC: 0DBC8ZX Excision of Ileocecal Valve, Via Natural or Artificial Opening Endoscopic, Diagnostic (ICD-10-PCS; 2017-09-13)
DX: D50.9 Iron deficiency anemia, unspecified (principal); E11.21 Type 2 diabetes mellitus with diabetic nephropathy; E11.51 Type 2 diabetes mellitus with diabetic peripheral angiopathy without gangrene; K26.9 Duodenal ulcer, unspecified as acute or chronic, without hemorrhage or perforation; K64.8 Other hemorrhoids; I12.9 Hypertensive chronic kidney disease with stage 1 through stage 4 chronic kidney disease, or unspecified chronic kidney disease; F17.210 Nicotine dependence, cigarettes, uncomplicated; E11.65 Type 2 diabetes mellitus with hyperglycemia; I78.0 Hereditary hemorrhagic telangiectasia; E78.5 Hyperlipidemia, unspecified; M19.90 Unspecified osteoarthritis, unspecified site; M79.7 Fibromyalgia; R74.0 Nonspecific elevation of levels of transaminase and lactic acid dehydrogenase [LDH]; N18.3 Chronic kidney disease, stage 3 (moderate); E11.22 Type 2 diabetes mellitus with diabetic chronic kidney disease; Z86.010 Personal history of colon polyps; M81.0 Age-related osteoporosis without current pathological fracture; I70.0 Atherosclerosis of aorta; E55.9 Vitamin D deficiency, unspecified; M10.9 Gout, unspecified; M50.30 Other cervical disc degeneration, unspecified cervical region; I34.0 Nonrheumatic mitral (valve) insufficiency; H35.30 Unspecified macular degeneration; M54.9 Dorsalgia, unspecified; F41.8 Other specified anxiety disorders; K57.90 Diverticulosis of intestine, part unspecified, without perforation or abscess without bleeding; K64.4 Residual hemorrhoidal skin tags; K29.70 Gastritis, unspecified, without bleeding; K21.0 Gastro-esophageal reflux disease with esophagitis; Z95.820 Peripheral vascular angioplasty status with implants and grafts; Z17.0 Estrogen receptor positive status [ER+]; Z80.1 Family history of malignant neoplasm of trachea, bronchus and lung; Z86.79 Personal history of other diseases of the circulatory system; E87.6 Hypokalemia; F32.9 Major depressive disorder, single episode, unspecified; C50.912 Malignant neoplasm of unspecified site of left female breast
CPT/HCPCS: 36430; 74176; 76705; 78227; 80048; 80053; 80074; 80076; 82105; 82247; 82248; 82378; 82728; 82784; 82948; 83516; 83520; 83540; 83550; 83615; 84132; 85007; 85014; 85018; 85027; 85044; 85610; 85730; 86038; 86077; 86255; 86301; 86850; 86870; 86900; 86901; 86902; 86920; 86922; 88305; 93005; 94618; 99291; A9537; J1610; J1756; J2270; J2405; J2805; J3420; J3480; J7050; P9016; Q9963

== ENCOUNTER 2017-09-15 04:01 | Inpatient (IN) | payer MEDICARE ==
[2017-09-15] VITALS (23 sets, daily range): BP systolic 109–208; BP diastolic 52–111; PULSE 86–140; RESP 20–38; TEMP 97.6–99.5; O2SAT 92–99
[~2017-09-15] VITALS: Ht 160 cm; Wt 62.3 kg
[~2017-09-15 04:01] MED LIST changes: -ATOR40TA PO; -CITRTAB8 PO; -CLON.5 PO; -DILT240C7 PO; -ENAL5TAB PO; -FISH100020 PO; -GABA300C3 PO; +GLIP10TA6 PO; -GLIP5 PO; -HYDR-3534 PO; +HYDR-3580 PO; +LEVEMIR SQ; +LISI-519 PO; -LOSA50TA PO; +METF500T PO; -OMEP20CA5 PO; +OXYB5TAB8 PO; +PARO20TA2 PO; -PAXI10TA PO; -SODI650T PO; +TAMO10TA6 PO; -TAMO20TA4 PO; -TEMA15 PO; +VITA1000 PO; -VITA200017 PO; -[UNRECOGNIZED DRUG - CODE] PO
[2017-09-15] MEDS ORDERED: RESP: ALBUTEROL 2.5 MG/IPRATROPIUM 0.5 MG NEB (SCH) INH ONE (04:15)
--- NOTE | 2017-09-15 04:19 | PD ---
HPI Chief Complaint: shortness of breath Time Seen by Provider: 04:05 Travel History International Travel<30 days: No Contact w/Intl Traveler<30days: No Traveled to known affect area: No History of Present Illness HPI The patient is a 77-year-old female who presents to the emergency department for shortness of breath. The patient was recently hospitalized for severe anemia with hemoglobin just greater than 4, was transfused, subsequently discharged home. The patient was discharged home yesterday, was at home approximately one hour prior to arrival when she suddenly developed shortness of breath. The patient was noted to be hypoxic in triage and brought emergently into the emergency department. The patient states her symptoms started one hour prior to arrival. She denies any productive cough, chest pain , nausea, vomiting, or abdominal pain. She denies any history of COPD, CHF, or pulmonary embolism. Symptoms are moderate. There are no alleviating or exacerbating factors. PFSH Past Medical History Anemia: Yes Arthritis: Yes Blood Disorders: Yes (HEREDITARY HEMOGIOTELASITIA) Anxiety: Yes Depression: No Heart Rhythm Problems: No Cancer: Yes (LEFT BREAST) Cardiovascular Problems: Yes (AAA STENT, R FEMORAL STENT ) High Cholesterol: Yes Chest Pain: No Congestive Heart Failure: No Diabetes: Yes Diminished Hearing: No Endocrine: Yes Gastrointestinal Disorders: Yes (HX ULCERATIVE COLITIS ; IBS, GERD) GERD: No Genitourinary: No Headaches: Yes (OCCASIONAL HEADACHE) Hepatitis: No Hiatal Hernia: No Heparin Induced Thrombocytopen: No Hypertension: Yes Immune Disorder: No Implanted Vascular Access Dvce: No Musculoskeletal: Yes ( SEVERE ARTHRITIS, FIBROMYALGIA) Neurologic: No Psychiatric: Yes (ANXIETY) Reproductive: No Respiratory: No Immunizations Current: Yes Myocardial Infarction: No Sickle Cell Disease: No Thyroid Disease: No Ulcer: No : 3 Para: 2 Miscarriage: 1 Past Surgical History Abdominal Surgery: No AICD: No Appendectomy: Yes Body Medical Devices: FEMORAL STENT RIGHT ; AAA STENT Cardiac Surgery: Yes (02/01 ENDOVASCULAR AAA) Ear Surgery: No Endocrine Surgery: No Eye Surgery: Yes (LEFT CATARACT EXTRACT) Genitourinary Surgery: No Gynecologic Surgery: Yes (HYSTERECTOMY) Hysterectomy: Yes (1979) Joint Replacement: No Neurologic Surgery: No Oral Surgery: Yes (TONSILLECTOMY) Pacemaker: No Thoracic Surgery: No Other Surgery: Yes (HEMRRHOIDECTOMY ) Social History Alcohol Use: No Tobacco Use: No Substance Use: No Allergies-Medications (Allergen,Severity, Reaction): Coded Allergies: aspirin (Unverified Adverse Reaction, Severe, GI BLEEDING, 09/15/17) diclofenac (Unverified Adverse Reaction, Severe, GI BLEED, 09/15/17) duloxetine (Unverified Adverse Reaction, Severe, SUICIDAL THOUGHTS, ) etodolac (Unverified Adverse Reaction, Severe, GI BLEED, 09/15/17) flurbiprofen (Unverified Adverse Reaction, Severe, GI BLEED, 09/15/17) ibuprofen (Unverified Adverse Reaction, Severe, GI BLEED, 09/15/17) indomethacin (Unverified Adverse Reaction, Severe, GI BLEED, 09/15/17) ketoprofen (Unverified Adverse Reaction, Severe, GI BLEED, 09/15/17) ketorolac (Unverified Adverse Reaction, Severe, GI BLEED, 09/15/17) naproxen (Unverified Adverse Reaction, Severe, GI BLEED, 09/15/17) oxaprozin (Unverified Adverse Reaction, Severe, GI BLEED, 09/15/17) Reported Meds & Prescriptions Reported Meds & Active Scripts Active Vitamin D-1000 (Cholecalciferol) 1,000 Unit Tab 5,000 Units PO DAILY Reported Hydrocodone-Acetaminophen 7.5 Mg-325 Mg Tab 1 Tab PO Q4H PRN Levemir Inj (Insulin Detemir) 1,000 unit/ 10 ML Vial 8 Units SQ HS Do not mix with any other Insulin. Ditropan (Oxybutynin Chloride) 5 Mg Tab 5 Mg PO DAILY Lisinopril 5 Mg Tab 5 Mg PO HS Metformin (Metformin HCl) 500 Mg Tab 500 Mg PO BIDPC Tamoxifen (Tamoxifen Citrate) 10 Mg Tab 5 Mg PO BID Glipizide 10 Mg Tab 10 Mg PO BIDAC Take 30 minutes before a meal Paroxetine (Paroxetine HCl) 20 Mg Tab 20 Mg PO DAILY Review of Systems Except as stated in HPI: all other systems reviewed are Neg General / Constitutional: No: Fever HENT: No: Lightheadedness Cardiovascular: No: Chest Pain or Discomfort Respiratory: Positive: Shortness of Breath, Wheezing Gastrointestinal: No: Nausea, Vomiting, Abdominal Pain Musculoskeletal: No: Edema Neurologic: No: Dizziness Physical Exam Narrative GENERAL: Awake, alert, pleasant 77-year-old female who appears her stated age and is in moderate respiratory distress. SKIN: Focused skin assessment warm/dry. Patient had livedo reticularis noted over the chest wall and legs. HEAD: Atraumatic. Normocephalic. EYES: No injection or drainage. ENT: No nasal bleeding or discharge. Mucous membranes pink and moist. NECK: Trachea midline. No JVD. CARDIOVASCULAR: Regular, tachycardic, heart rate in the 130s. RESPIRATORY: Tachypnea with a respiratory rate of 34. Diminished breath sounds in bases with rhonchi. Patient also had wheezes noted in the upper da [place]. GASTROINTESTINAL: Abdomen soft, non-tender, nondistended. No rebound tenderness. MUSCULOSKELETAL: No obvious deformities. No clubbing. No cyanosis. The left calf appeared larger than the right calf.. NEUROLOGICAL: Awake and alert. No obvious cranial nerve deficits. Motor grossly within normal limits. Normal speech. PSYCHIATRIC: Appropriate mood and affect; insight and judgment normal. Data Data Last Documented VS Vital Signs Date Time Temp Pulse Resp B/P (MAP) Pulse Ox O2 Delivery O2 Flow Rate FiO2 09/15/17 05:50 92 22 115/52 (73) 96 BiPAP 50 09/15/17 04:14 99.1 Orders Orders Complete Blood Count With Diff (09/15/17 04:10) Comprehensive Metabolic Panel (09/15/17 04:10) B-Type Natriuretic Peptide (09/15/17 04:10) Act Partial Throm Time (Ptt) (09/15/17 04:10) Prothrombin Time / Inr (Pt) (09/15/17 04:10) Magnesium (Mg) (09/15/17 04:10) Ckmb (Isoenzyme) Profile (09/15/17 04:10) Troponin I (09/15/17 04:10) Iv Access Insert/Monitor (09/15/17 04:10) Electrocardiogram (09/15/17 04:10) Ecg Monitoring (09/15/17 04:10) Oximetry (09/15/17 04:10) Oxygen Administration (09/15/17 04:10) Chest, Single Ap (09/15/17 04:10) Sodium Chloride 0.9% Flush (Ns Flush) (09/15/17 04:15) Albuterol-Ipratropium Neb (Duoneb Neb) (09/15/17 04:15) Resp Bipap / Cpap Non Invas Vt (09/15/17 04:10) Lactic Acid (09/15/17 04:19) Blood Culture (09/15/17 04:19) Furosemide Inj (Lasix Inj) (09/15/17 04:45) Ct Pulmonary Angiogram (09/15/17 ) Admit Order (Ed Use Only) (09/15/17 05:58) Consult Cardiology (09/15/17 ) Admit To Inpatient (09/15/17 ) Inpatient Certification (09/15/17 ) Vital Signs (Adult) CATRACHITO.Q4H (09/15/17 05:58) Dispatch Clerk / Telemetry CATRACHITO.Q8H (09/15/17 05:58) Activity Bed Rest (09/15/17 05:58) Diet 1800 Ada Cons Carb (09/15/17 Breakfast) Bedside Glucose CATRACHITO.CSUGAR (09/15/17 05:58) Medium Novolog Scale (09/15/17 08:00) Labs Laboratory Tests Test 09/15/17 04:15 White Blood Count 13.6 TH/MM3 Red Blood Count 3.41 MIL/MM3 Hemoglobin 8.7 GM/DL Hematocrit 27.6 % Mean Corpuscular Volume 81.0 FL Mean Corpuscular Hemoglobin 25.4 PG Mean Corpuscular Hemoglobin Concent 31.4 % Red Cell Distribution Width 36.0 % Platelet Count 283 TH/MM3 Mean Platelet Volume 10.9 FL CBC Comment AUTO DIFF Differential Total Cells Counted 100 Neutrophils % (Manual) 63 % Lymphocytes % 28 % Monocytes % 4 % Eosinophils % 3 % Basophils % 1 % Neutrophils # (Manual) 8.7 TH/MM3 Metamyelocytes 1 % Nucleated Red Blood Cells 2 /100 WBC Differential Comment FINAL DIFF MANUAL Platelet Estimate NORMAL Platelet Morphology Comment CLUMPED Target Cells 2+ Ovalocytes 1+ Keratocytes OCC Prothrombin Time 10.6 SEC Prothromb Time International Ratio 1.0 RATIO Activated Partial Thromboplast Time 21.5 SEC Blood Urea Nitrogen 11 MG/DL Creatinine 0.96 MG/DL Random Glucose 306 MG/DL Total Protein 7.5 GM/DL Albumin 2.5 GM/DL Calcium Level 8.6 MG/DL Magnesium Level 2.2 MG/DL Alkaline Phosphatase 276 U/L Aspartate Amino Transf (AST/SGOT) 56 U/L Alanine Aminotransferase (ALT/SGPT) 113 U/L Total Bilirubin 0.5 MG/DL Sodium Level 135 MEQ/L Potassium Level 3.3 MEQ/L Chloride Level 101 MEQ/L Carbon Dioxide Level 21.2 MEQ/L Anion Gap 13 MEQ/L Estimat Glomerular Filtration Rate 57 ML/MIN Lactic Acid Level 6.9 mmol/L Total Creatine Kinase 67 U/L Troponin I 0.47 NG/ML B-Type Natriuretic Peptide 3037 PG/ML MDM Medical Decision Making Medical Screen Exam Complete: Yes Emergency Medical Condition: Yes Medical Record Reviewed: Yes Interpretation(s) EKG reveals sinus tachycardia with a heart rate of 122. Low QRS voltage precordial leads. Q wave noted in lead 3 and aVF. Last Impressions Chest X-Ray 09/15/170 Signed Impressions: Service Date/Time: Wednesday, September 15, 2017 04:20 - CONCLUSION: Cardiomegaly and interstitial opacities most characteristic of congestive heart failure. Jordy Myers MD Laboratory Tests Test 09/15/17 04:15 White Blood Count 13.6 TH/MM3 Red Blood Count 3.41 MIL/MM3 Hemoglobin 8.7 GM/DL Hematocrit 27.6 % Mean Corpuscular Volume 81.0 FL Mean Corpuscular Hemoglobin 25.4 PG Mean Corpuscular Hemoglobin Concent 31.4 % Red Cell Distribution Width 36.0 % Platelet Count 283 TH/MM3 Mean Platelet Volume 10.9 FL CBC Comment AUTO DIFF Differential Total Cells Counted 100 Neutrophils % (Manual) 63 % Lymphocytes % 28 % Monocytes % 4 % Eosinophils % 3 % Basophils % 1 % Neutrophils # (Manual) 8.7 TH/MM3 Metamyelocytes 1 % Nucleated Red Blood Cells 2 /100 WBC Differential Comment FINAL DIFF MANUAL Platelet Estimate NORMAL Platelet Morphology Comment CLUMPED Target Cells 2+ Ovalocytes 1+ Keratocytes OCC Prothrombin Time 10.6 SEC Prothromb Time International Ratio 1.0 RATIO Activated Partial Thromboplast Time 21.5 SEC Blood Urea Nitrogen 11 MG/DL Creatinine 0.96 MG/DL Random Glucose 306 MG/DL Total Protein 7.5 GM/DL Albumin 2.5 GM/DL Calcium Level 8.6 MG/DL Magnesium Level 2.2 MG/DL Alkaline Phosphatase 276 U/L Aspartate Amino Transf (AST/SGOT) 56 U/L Alanine Aminotransferase (ALT/SGPT) 113 U/L Total Bilirubin 0.5 MG/DL Sodium Level 135 MEQ/L Potassium Level 3.3 MEQ/L Chloride Level 101 MEQ/L Carbon Dioxide Level 21.2 MEQ/L Anion Gap 13 MEQ/L Estimat Glomerular Filtration Rate 57 ML/MIN Lactic Acid Level 6.9 mmol/L Total Creatine Kinase 67 U/L Troponin I 0.47 NG/ML B-Type Natriuretic Peptide 3037 PG/ML Differential Diagnosis Differential diagnosis includes flash pulmonary edema, COPD exacerbation, pneumonia, bronchitis, pulmonary embolism, congestive heart failure, cardiomyopathy, aortic stenosis. Narrative Course IV was established, labs are drawn and sent, and the patient was placed on cardiac telemetry monitoring and continuous pulse oximetry monitoring. The patient was placed on BiPAP 12/5 with 60%. Stat chest x-ray was obtained. EKG was ordered and interpreted. The patient was administered one DuoNeb. Chest x- ray reveals pulmonary edema. The patient was administered Lasix 40 mg intravenously. The patient's symptoms significantly proved on BiPAP. BNP was greater than 3000. The patient appears to have acute flash pulmonary edema, possibly congestive heart failure, possibly from recent blood transfusion. The patient will be admitted to the stepdown unit of the intensive care unit to the [facility] physicians. The on-call [facility] physician was paged. The patient was administered not administered aspirin as she is allergic to aspirin and nonsteroidal anti-inflammatories. Patient may benefit from echocardiogram. The patient's troponin was positive at 0.47, Plavix and aspirin were held as patient has a history of Gsovd-Wapfa-Eiztk syndrome and an allergy to aspirin with recent anemia requiring transfusion. Lactic acid was elevated at 6.9, most likely secondary to hypoxia. I discussed the patient with Dr. Main, after discussion was agreed we would obtain a CT pulmonary angiogram to rule out underlying pulmonary embolism. A CT pulmonary angiogram is negative, patient may need cardiology evaluation for possible cardiac catheterization. The patient will be admitted to the stepdown unit in the ICU. Critical Care Narrative Aggregate critical care time was 35 minutes. Time to perform other separately billable procedures was not included in the critical care time. My time did not include minutes spent treating any other patients simultaneously or on activities that did not directly contribute to the patient's treatment. The services I provided to this patient were to treat and/or prevent clinically significant deterioration that could result in: Anoxia, hypoxia, respiratory failure. I provided critical care services requiring my management, as noted below: Chart data review, documentation time, medication orders and management, vital sign assessments/reviewing monitor data, ordering and reviewing lab tests, ordering and interpreting/reviewing x-rays and diagnostic studies, care of the patient and discussion of the patient with the admitting physicians. Physician Communication Physician Communication The on-call [facility] physician was paged for admission. I discussed the patient with Dr. Main who agrees with admission. Diagnosis Primary Impression: Pulmonary edema Qualified Codes: J81.0 - Acute pulmonary edema Additional Impressions: Congestive heart failure Qualified Codes: I50.9 - Heart failure, unspecified Lactic acidosis Elevated troponin Admitting Information Admitting Physician Requests: Admit Condition: Stable Guicho Johnson MD Sep 15, 2017 04:18
[2017-09-15 04:31] LABS: CHLORIDE 101 MEQ/L (98-107); SODIUM (NA) 135 MEQ/L (136-145)
[2017-09-15 04:32] LABS: HEMATOCRIT 27.6 % (35.0-46.0); HEMOGLOBIN 8.7 GM/DL (11.6-15.3); MEAN CORPUSCULAR HEMOGLOBIN 25.4 PG (27.0-34.0); MEAN CORPUSCULAR HGB CONC 31.4 % (32.0-36.0); MEAN PLATELET VOLUME 10.9 FL (7.0-11.0); PLATELET COUNT 283 TH/MM3 (150-450); RED BLOOD COUNT 3.41 MIL/MM3 (4.00-5.30); WHITE BLOOD COUNT 13.6 TH/MM3 (4.0-11.0)
[2017-09-15 04:34] LABS: ALBUMIN 2.5 GM/DL (3.4-5.0); CALCIUM 8.6 MG/DL (8.5-10.1)
[2017-09-15 04:35] LABS: BICARBONATE 21.2 MEQ/L (21.0-32.0)
[2017-09-15 04:36] LABS: PROTHROMBIN TIME - PATIENT 10.6 SEC (9.8-11.6)
[2017-09-15 04:42] LABS: ALKALINE PHOSPHATASE 276 U/L (45-117); ALT (GPT) 113 U/L (10-53); AST (GOT) 56 U/L (15-37); BLOOD UREA NITROGEN 11 MG/DL (7-18); CREATININE 0.96 MG/DL (0.50-1.00); GLOMERULAR FILTRATION RATE 57 ML/MIN (>89); GLUCOSE,RANDOM 306 MG/DL (74-106); MAGNESIUM 2.2 MG/DL (1.5-2.5); TOTAL BILIRUBIN ADULT 0.5 MG/DL (0.2-1.0); TOTAL PROTEIN 7.5 GM/DL (6.4-8.2)
--- NOTE | 2017-09-15 04:44 | RADRPT ---
EXAM DATE/TIME: 09/15/2017 04:20 [facility] COMPARISON: No previous studies available for comparison. INDICATIONS : Shortness of breath. MEDICAL HISTORY : Irritiable bowel syndrome. Carcinoma, breast. Gastroesophageal reflux disease.Diabetes. Hypertension. Colitis. SURGICAL HISTORY : Abdominal aortic aneurysm repair. Hemorrhoidectomy.Hysterectomy.Appendectomy. ENCOUNTER: Initial ACUITY: 1 day PAIN SCORE: 0/10 LOCATION: Bilateral chest FINDINGS: A single AP portable erect view of the chest was obtained and demonstrates moderate cardiomegaly. Int erstitial opacities are present in both lungs greatest in the perihilar regions and both lung bases. The costophrenic angles appear mildly blunted. Atherosclerotic changes are present in the aorta with calcification. The bony thorax is intact. There is overlying electrocardiogram leads and oxygen tubin g. CONCLUSION: Cardiomegaly and interstitial opacities most characteristic of congestive heart failu re. Jordy Myers MD on September 15, 2017 at 4:42 Board Certified Radiologist. This report was verified electronically.
[2017-09-15] MEDS ORDERED: FUROSEMIDE 40 MG/4 ML VIAL IV PUSH ONE (04:45)
[2017-09-15 05:07] LABS: BASOPHILS 1 % (0-2); CORRECTED NUCLEATED RBC 2 /100 WBC (0-0); LYMPHOCYTES 28 % (9-44); METAMYELOCYTES 1 % (0-1); MONOCYTES 4 % (0-8); NEUTROPHIL # MANUAL DIFF 8.7 TH/MM3 (1.8-7.7); NUCLEATED RED BLOOD CELL 2 (0-0); OVALOCYTES 1+ (NORMAL); POLYS (SEG NEUTROPHILS) 63 % (16-70); TARGET CELLS 2+ (NORMAL)
[2017-09-15 05:08] LABS: KERATOCYTES OCC (NORMAL)
[2017-09-15 05:21] LABS: TROPONIN I 0.47 NG/ML (0.02-0.05)
[2017-09-15] MEDS ORDERED: IOHEXOL 350 MG/ML 10 ML VIAL (for RAD DIAG) IVCONTRAST ONE (06:00)
--- NOTE | 2017-09-15 06:52 | RADRPT ---
EXAM DATE/TIME: 09/15/2017 06:10 [facility] COMPARISON: No previous studies available for comparison. INDICATIONS : Diffculty breathing. Evaluate for embolism. IV CONTRAST: 75 cc Omnipaque 350 (iohexol) IV RADIATION DOSE: 8.44 CTDIvol (mGy) MEDICAL HISTORY : Cardiovascular disease. Diabetes mellitus type 2. Carcinoma, breast. SURGICAL HISTORY : Hysterectomy. CABG ENCOUNTER: Initial ACUITY: 1 day PAIN SCALE: 5/10 LOCATION: chest TECHNIQUE: Volumetric scanning of the chest was performed using a pulmonary embolism protocol MIP images were re constructed. Using automated exposure control and adjustment of the mA and/or kV according to patien t size, radiation dose was kept as low as reasonably achievable to obtain optimal diagnostic quality images. DICOM format image data is available electronically for review and comparison. Follow-up recommendations for detected pulmonary nodules are based at a minimum on nodule size and pa tient risk factors according to Fleischner Society Guidelines. FINDINGS: PULMONARY ARTERIES: No filling defects are seen in the pulmonary arteries through the segmental level. LUNGS: There is no pneumothorax . There are scattered patchy areas of opacity with multiple small nodular ar eas noted in the right lung. There is consolidation in the posterior lung bases. PLEURAE: There are small to moderate size bilateral pleural effusions. MEDIASTINUM: There is good visualization of the great vessels of the middle mediastinum. No evidence of mediastin al or hilar adenopathy/mass. The heart size is enlarged and there are coronary artery calcifications. Atherosclerotic changes are present in the aorta. MUSCULOSKELETAL: Within normal limits for patient age. MISCELLANEOUS: The visualized upper abdominal organs demonstrate no acute abnormality. CONCLUSION: 1. No evidence of pulmonary embolism. 2. Small to moderate bilateral pleural effusions. 3. Patchy parenchymal infiltrate with small nodular areas in the right lung likely infectious or infl ammatory. Followup CT is recommended after treatment. 4. There is consolidation in the posterior lung bases. Jordy Myers MD on September 15, 2017 at 6:44 Board Certified Radiologist. This report was verified electronically.
--- NOTE | 2017-09-15 07:52 | EKG ---
Date Performed: 09/15/2017 Time Performed: 04:24:00 PTAGE: 77 years EKG: SINUS TACHYCARDIA LOW QRS VOLTAGE IN PRECORDIAL LEADS INFERIOR MYOCARDIAL INFARCTION SIRENA LATERAL MYOCARDIAL INFARCTION ABNORMAL ECG PREVIOUS TRACING : 09/13/2017 01.07 DOCTOR: Leoncio Chacon Interpretating Date/Time 09/15/2017 07:50:54
[2017-09-15] MEDS: PIPERACIL-TAZO 4.5 GM PREMIX 100 ML IV SCH ×3 (08:33→20:46)
[2017-09-15] MEDS: SODIUM CHLORIDE 0.9% FLUSH 10 ML FLUSH IVF PRN ×2 (08:33→09:15)
[2017-09-15] MEDS: INSULIN ASPART SUPPLEMENTAL SCALE SQ SCH ×4 (08:34→20:37)
--- NOTE | 2017-09-15 09:00 | HHI.HP ---
HPI Service [facility] Hospitalists Primary Care Physician Bobby Gomez MD Admission Diagnosis pulmonary edema, CHF, elevated troponin, lactic acidosis Chief Complaint: SOB, cough Travel History International Travel<30 Days: No Contact w/Intl Traveler <30 Da: No Traveled to Known Affected Are: No History of Present Illness The patient is a 77-year-old female well known to me from recent admission and discharge home actually yesterday who presents to the emergency department for shortness of breath. The patient was recently hospitalized for severe anemia with hemoglobin just greater than 4, was transfused 2 units of red cells over a week ago, subsequently discharged home yesterday after GI workup and hematology evaluation. As noted she was discharged home yesterday and was actually doing quite well at home until around 3 AM this morning. He noted that she began to have a dry cough and then became more and more short of breath to the point that she needed emergent evaluation. This is confirmed with her son hollie who is a nurse. Her shortness of breath started approximately 1 hour prior to her arrival in the ER. The patient was noted to be hypoxic in triage and brought emergently into the emergency department. She denies chest pain. She denies any productive cough, chest pain, nausea, vomiting, fever or abdominal pain. She denies any history of COPD, CHF, or pulmonary embolism. Also denies any history of coronary artery disease and this is confirmed with her son as well. Chest x-ray revealed pulmonary edema and she was placed on BiPAP as well as IV Lasix in the ER. She has had good results with these interventions and is currently stable on my exam. It is noted that she is occasionally tachyarrhythmia with a heart rate up into the 1 4150 range. Heart rate currently is in the 90s. She denies any chest pain and says she feels remarkably better regarding her shortness of breath. CTA of chest negative for pulmonary embolus but noted for lower lung consolidation and effusions. Initial lab evaluation noted for a white count of 13,000 and a stable hemoglobin around 8 mass. BNP is greater than 3000. LFTs have actually improved somewhat and renal indices are stable with recent inpatient values. Interestingly her lactic acid elevated at 6.9. Review of Systems Constitutional: COMPLAINS OF: Fatigue, DENIES: Diaphoretic episodes, Fever, Weight gain, Weight loss, Chills, Dizziness, Change in appetite, Night Sweats Eyes: DENIES: Blurred vision, Diplopia, Eye inflammation, Eye pain, Vision loss , Photosensitivity, Double Vision Ears, nose, mouth, throat: DENIES: Tinnitus, Hearing loss, Vertigo, Nasal discharge, Oral lesions, Throat pain, Hoarseness, Ear Pain, Running Nose, Epistaxis, Sinus Pain, Toothache, Odynophagia Respiratory: COMPLAINS OF: Cough, Shortness of breath, DENIES: Apneas, Snoring , Wheezing, Hemoptysis, Sputum production Cardiovascular: COMPLAINS OF: Dyspnea on Exertion, DENIES: Chest pain, Palpitations, Syncope, PND, Lower Extremity Edema, Orthopnea, Claudication Gastrointestinal: DENIES: Abdominal pain, Black stools, Bloody stools, BRB per rectum, Constipation, Diarrhea, GERD, Nausea, Reflux, Vomiting, Difficulty Swallowing, Anorexia, See HPI Musculoskeletal: COMPLAINS OF: Back pain Hematologic/lymphatic: COMPLAINS OF: Bruising Immunologic/allergic: DENIES: Eczema, Urticaria Neurologic: DENIES: Abnormal gait, Headache, Localized weakness, Paresthesias, Seizures, Speech Problems, Tremor, Poor Balance Psychiatric: COMPLAINS OF: Anxiety Past Family Social History Past Medical History Recent admission for hypochromic, microcytic anemia consistent with iron deficiency Recent abnormal elevation of liver function tests which are much improved Type 2 diabetes with nephropathy Peripheral arterial disease Hereditary hemorrhagic telangiectasia Hypertension Hyperlipidemia PKD stage III Fibromyalgia Osteoporosis History of ulcerative colitis Irritable bowel syndrome Anxiety Depression History of breast cancer currently on tamoxifen therapy Vitamin D deficiency Past Surgical History Had colonoscopy and EGD performed within the last week demonstrating some gastritis and esophagitis as well as 2 small ulcers in the first part of the duodenum; colonoscopy revealed diverticula and small hemorrhoids and a prominent ileocecal valve. Appendectomy left breast biopsy Bilateral cataract surgery Endovascular repair of abdominal aortic aneurysm Hemorrhoidectomy Left breast lumpectomy in 2011 PTCA with stent in the right common iliac artery LUPE with BSO Reported Medications Vitamin D-1000 (Cholecalciferol) 1,000 Unit Tab 5,000 Units PO DAILY Hydrocodone-Acetaminophen 7.5 Mg-325 Mg Tab 1 Tab PO Q4H PRN Levemir Inj (Insulin Detemir) 1,000 unit/ 10 ML Vial 8 Units SQ HS Do not mix with any other Insulin. Ditropan (Oxybutynin Chloride) 5 Mg Tab 5 Mg PO DAILY Lisinopril 5 Mg Tab 5 Mg PO HS Metformin (Metformin HCl) 500 Mg Tab 500 Mg PO BIDPC Tamoxifen (Tamoxifen Citrate) 10 Mg Tab 5 Mg PO BID Glipizide 10 Mg Tab 10 Mg PO BIDAC Take 30 minutes before a meal Paroxetine (Paroxetine HCl) 20 Mg Tab 20 Mg PO DAILY Allergies: Coded Allergies: aspirin (Unverified Adverse Reaction, Severe, GI BLEEDING, 09/15/17) diclofenac (Unverified Adverse Reaction, Severe, GI BLEED, 09/15/17) duloxetine (Unverified Adverse Reaction, Severe, SUICIDAL THOUGHTS, ) etodolac (Unverified Adverse Reaction, Severe, GI BLEED, 09/15/17) flurbiprofen (Unverified Adverse Reaction, Severe, GI BLEED, 09/15/17) ibuprofen (Unverified Adverse Reaction, Severe, GI BLEED, 09/15/17) indomethacin (Unverified Adverse Reaction, Severe, GI BLEED, 09/15/17) ketoprofen (Unverified Adverse Reaction, Severe, GI BLEED, 09/15/17) ketorolac (Unverified Adverse Reaction, Severe, GI BLEED, 09/15/17) naproxen (Unverified Adverse Reaction, Severe, GI BLEED, 09/15/17) oxaprozin (Unverified Adverse Reaction, Severe, GI BLEED, 09/15/17) Family History Parents in their late 80s [place] Social History She is , retired from [employer] Review smoked half pack cigarettes a day for 20 years but apparently stopped in 1999 on the to resume cigarette smoking within the last year at up to a pack per day No regular alcohol use Physical Exam Vital Signs Vital Signs Date Time Temp Pulse Resp B/P (MAP) Pulse Ox O2 Delivery O2 Flow Rate FiO2 09/15/17 07:15 114 22 BiPAP 50 09/15/17 07:15 97.8 120 24 114/57 (76) 98 BiPAP 50 09/15/17 05:50 92 22 115/52 (73) 96 BiPAP 50 09/15/17 04:53 95 20 112/66 (81) 95 BiPAP 50 09/15/17 04:48 94 50 09/15/17 04:32 BiPAP 09/15/17 04:32 97 BiPAP 2/21/18 04:15 98 60 09/15/17 04:14 99.1 140 38 208/111 (727) 92 Physical Exam GENERAL: This is a well-nourished, well-developed patient, in mild distress but overall appears comfortable with BiPAP in place. SKIN: Few purpuric lesions on the arms.. Cool and dry. HEAD: Atraumatic. Normocephalic. No temporal or scalp tenderness. EYES: Pupils equal round and reactive. Extraocular motions intact. No scleral icterus. No injection or drainage. ENT: Nose without bleeding, purulent drainage or septal hematoma. Airway patent. NECK: Trachea midline. No JVD or lymphadenopathy. Supple, nontender, no meningeal signs. CARDIOVASCULAR: Regular rate and rhythm without murmurs, gallops, or rubs. Distant heart sounds. Rate ranges from 90s up to 140s at times. RESPIRATORY: Scattered crackles throughout particularly in the lung bases. Breath sounds equal bilaterally. No wheezes. BiPAP ventilatory sounds noted. GASTROINTESTINAL: Abdomen soft, non-tender, nondistended. No hepato-splenomegaly , or palpable masses. No guarding. MUSCULOSKELETAL: Extremities without clubbing, cyanosis. 1+ edema in lower extremities distally. No calf tenderness. NEUROLOGICAL: Awake and alert. Cranial nerves II through XII intact. Motor and sensory grossly within normal limits. Five out of 5 muscle strength in all muscle groups. Normal speech. Laboratory Laboratory Tests Test 09/15/17 04:15 White Blood Count 13.6 Red Blood Count 3.41 Hemoglobin 8.7 Hematocrit 27.6 Mean Corpuscular Volume 81.0 Mean Corpuscular Hemoglobin 25.4 Mean Corpuscular Hemoglobin Concent 31.4 Red Cell Distribution Width 36.0 Platelet Count 283 Mean Platelet Volume 10.9 CBC Comment AUTO DIFF Differential Total Cells Counted 100 Neutrophils % (Manual) 63 Lymphocytes % 28 Monocytes % 4 Eosinophils % 3 Basophils % 1 Neutrophils # (Manual) 8.7 Metamyelocytes 1 Nucleated Red Blood Cells 2 Differential Comment FINAL DIFF MANUAL Platelet Estimate NORMAL Platelet Morphology Comment CLUMPED Target Cells 2+ Ovalocytes 1+ Keratocytes OCC Prothrombin Time 10.6 Prothromb Time International Ratio 1.0 Activated Partial Thromboplast Time 21.5 Blood Urea Nitrogen 11 Creatinine 0.96 Random Glucose 306 Total Protein 7.5 Albumin 2.5 Calcium Level 8.6 Magnesium Level 2.2 Alkaline Phosphatase 276 Aspartate Amino Transf (AST/SGOT) 56 Alanine Aminotransferase (ALT/SGPT) 113 Total Bilirubin 0.5 Sodium Level 135 Potassium Level 3.3 Chloride Level 101 Carbon Dioxide Level 21.2 Anion Gap 13 Estimat Glomerular Filtration Rate 57 Lactic Acid Level 6.9 Total Creatine Kinase 67 Troponin I 0.47 B-Type Natriuretic Peptide 3037 Date/Time Source Procedure Growth Status 09/15/17 04:15 Blood Peripheral Aerobic Blood Culture Pending Received 09/15/17 04:15 Blood Peripheral Anaerobic Blood Culture Pending Received Result Diagram: 09/15/17 0415 09/15/17 0415 Imaging Last 72 hours Impressions Chest X-Ray 09/15/17 0410 Signed Impressions: Service Date/Time: Friday, September 15, 2017 04:20 - CONCLUSION: Cardiomegaly and interstitial opacities most characteristic of congestive heart failure. Jordy Myers MD CT Angiography 09/15/17 0000 Signed Impressions: Service Date/Time: Friday, September 15, 2017 06:10 - CONCLUSION: 1. No evidence of pulmonary embolism. 2. Small to moderate bilateral pleural effusions. 3. Patchy parenchymal infiltrate with small nodular areas in the right lung likely infectious or inflammatory. Followup CT is recommended after treatment. 4. There is consolidation in the posterior lung bases. MD Urmila Reddyi VTE Risk Assessment Caprini VTE Risk Assessment: Mod/High Risk (score >= 2) Caprini Risk Assessment Model Point Value = 1 Point Value = 2 Point Value = 3 Point Value = 5 Age 41-60 Minor surgery BMI > 25 kg/m2 Swollen legs Varicose veins or History of unexplained or recurrent spontaneous Oral contraceptives or hormone replacement Sepsis (< 1 month) Serious lung disease, including pneumonia (< 1 month) Abnormal pulmonary function Acute myocardial infarction Congestive heart failure (< 1 month) History of inflammatory bowel disease Medical patient at bed rest Age 61-74 Arthroscopic surgery Major open surgery (> 45 min) Laparoscopic surgery (> 45 min) Malignancy Confined to bed (> 72 hours) Immobilizing plaster cast Central venous access Age >= 75 History of VTE Family history of VTE Factor V Leiden Prothrombin [id number] Lupus anticoagulant Anticardiolipin antibodies Elevated serum homocysteine Heparin-induced thrombocytopenia Other congenital or acquired thrombophilia Stroke (< 1 month) Elective arthroplasty Hip, pelvis, or leg fracture Acute spinal cord injury (< 1 month) Prophylaxis Regimen Total Risk Factor Score Risk Level Prophylaxis Regimen 0-1 Low Early ambulation 2 Moderate Order ONE of the following: *Sequential Compression Device (SCD) *Heparin 5000 units SQ BID 3-4 Higher Order ONE of the following medications: *Heparin 5000 units SQ TID *Enoxaparin/Lovenox 40 mg SQ daily (WT < 150 kg, CrCl > 30 mL/min) *Enoxaparin/Lovenox 30 mg SQ daily (WT < 150 kg, CrCl > 10-29 mL/min) *Enoxaparin/Lovenox 30 mg SQ BID (WT < 150 kg, CrCl > 30 mL/min) AND/OR *Sequential Compression Device (SCD) 5 or more Highest Order ONE of the following medications: *Heparin 5000 units SQ TID (Preferred with Epidurals) *Enoxaparin/Lovenox 40 mg SQ daily (WT < 150 kg, CrCl > 30 mL/min) *Enoxaparin/Lovenox 30 mg SQ daily (WT < 150 kg, CrCl > 10-29 mL/min) *Enoxaparin/Lovenox 30 mg SQ BID (WT < 150 kg, CrCl > 30 mL/min) AND *Sequential Compression Device (SCD) Assessment and Plan Problem List: (1) Congestive heart failure ICD Codes: I50.9 - Heart failure, unspecified Status: Acute Plan: Questionable etiology. We'll check echo, trend troponins. Patient appears quite comfortable now with BiPAP in place. Vital signs are stable currently. He has been consult and here directly spoke with Dr. Lawrence about the patient's status and her recent history. Diuresis (2) Pulmonary edema ICD Codes: J81.1 - Chronic pulmonary edema Status: Acute Plan: As noted above. Questionable etiology. Doubt transfusion related given that her transfusion was over a week ago. Continue current therapies she is clinically improved. Cardiology to see the patient. (3) Elevated troponin ICD Codes: R74.8 - Abnormal levels of other serum enzymes Status: Acute Plan: Possible demand mediated elevation. She appears to have poor R-wave progression and some possible Q-wave development and lateral leads. This appears new compared to most recent EKG done September 13. (4) DM2 (diabetes mellitus, type 2) ICD Codes: E11.9 - Type 2 diabetes mellitus without complications Status: Chronic Plan: Provide sliding scale insulin with Accu-Cheks. (5) Hypertension ICD Codes: I10 - Essential (primary) hypertension Status: Chronic Plan: We'll treat as blood pressure allows. (6) Iron deficiency anemia ICD Codes: D50.9 - Iron deficiency anemia, unspecified Status: Chronic Plan: Hemoglobin stable with recent inpatient values. Continue to follow. Outpatient evaluation with hematology ongoing. Code Status full Discussed Condition With Patient, her son Surjit who is a nurse and the ER physician. Physician Certification 2 Midnight Certification Type: Admission for Inpatient Services Order for Inpatient Services The services are ordered in accordance with Medicare regulations or non- Medicare payer requirements, as applicable. In the case of services not specified as inpatient-only, they are appropriately provided as inpatient services in accordance with the 2-midnight benchmark. Estimated LOS (days): 3 days is the estimated time the patient will need to remain in the hospital, assuming treatment plan goals are met and no additional complications. Post-Hospital Plan: Not yet determined Problem Qualifiers (1) Congestive heart failure: Qualified Codes: I50.9 - Heart failure, unspecified (2) Pulmonary edema: Qualified Codes: J81.0 - Acute pulmonary edema (3) DM2 (diabetes mellitus, type 2): (4) Hypertension: Qualified Codes: I10 - Essential (primary) hypertension Eduardo Main MD PhD Sep 15, 2017 09:00
[2017-09-15] MEDS ORDERED: POTASSIUM CHLORIDE 10 MEQ CONTROLLED RELEASE TAB PO ONE ×2 (09:15→17:30)
[2017-09-15] MEDS: AZITHROMYCIN INJ 500 MG in SODIUM CHLOR 0.9% 250 ML INJ 250 ML IV SCH (09:15)
[2017-09-15] MEDS ORDERED: PILL SPLITTER OTHER PRN (09:30)
[2017-09-15 10:04] LABS: HEMATOCRIT 25.9 % (35.0-46.0); HEMOGLOBIN 8.3 GM/DL (11.6-15.3); MEAN CELL VOLUME 78.8 FL (80.0-100.0); MEAN CORPUSCULAR HEMOGLOBIN 25.2 PG (27.0-34.0); MEAN PLATELET VOLUME 10.3 FL (7.0-11.0); PLATELET COUNT 270 TH/MM3 (150-450); RED BLOOD COUNT 3.29 MIL/MM3 (4.00-5.30); RED CELL DISTRIBUTION WIDTH 33.4 % (11.6-17.2); WHITE BLOOD COUNT 14.9 TH/MM3 (4.0-11.0)
[2017-09-15] MEDS: METOPROLOL TARTRATE 25 MG TAB PO SCH ×2 (10:41→20:38)
[2017-09-15 11:16] LABS: BANDS 1 % (0-6); CORRECTED NUCLEATED RBC 4 /100 WBC (0-0); KERATOCYTES 1+ (NORMAL); LYMPHOCYTES 11 % (9-44); MONOCYTES 4 % (0-8); NEUTROPHIL # MANUAL DIFF 12.7 TH/MM3 (1.8-7.7); NUCLEATED RED BLOOD CELL 4 (0-0); POLYS (SEG NEUTROPHILS) 84 % (16-70); TARGET CELLS 2+ (NORMAL)
--- NOTE | 2017-09-15 13:20 | ECHRPT ---
Indication: CHF CONCLUSIONS The left ventricular systolic function is mildly reduced with an estimated ejection fraction in the range of 45- 50%. Normal left ventricular size. Wall thickness is normal. No regional wall motion abnormalities are present. Mild thickening of the mitral valve leaflets. [id number] mitral valve regurgitation. Aortic valve sclerosis is present. mild to Moderate aortic valve regurgitation. There is moderate to severe tricuspid regurgitation. The estimated pulmonary arterial pressure is 44 mmHg. Trivial pulmonary valve regurgitation. BP: 115 / 52 HR: 73 Rhythm: Sinus Technical Quality:Fair FINDINGS LEFT VENTRICLE The left ventricular systolic function is mildly reduced with an estimated ejection fraction in the range of 45- 50%. Normal left ventricular size. Wall thickness is normal. No regional wall motion abnormalities are present. RIGHT VENTRICLE Normal right ventricular size and systolic function. LEFT ATRIUM The left atrial size is normal. RIGHT ATRIUM The right atrial size is normal. ATRIAL SEPTUM Normal atrial septal thickness without atrial level shunting by limited color doppler interrogation. AORTA The aortic root and proximal ascending aorta are normal in size on limited imaging. MITRAL VALVE Mild thickening of the mitral valve leaflets. [id number] mitral valve regurgitation. AORTIC VALVE Trileaflet aortic valve. Aortic valve sclerosis is present. Moderate aortic valve regurgitation. TRICUSPID VALVE Structurally normal tricuspid valve. There is moderate tricuspid regurgitation. The estimated pulmonary arterial pressure is 44 mmHg. PULMONARY VALVE Trivial pulmonary valve regurgitation. VESSELS The inferior vena cava is normal in size. PERICARDIUM A moderate left sided pleural effusion is noted. No pericardial effusion. Alonzo Pillai MD, FACC, FSCAI (Electronically Signed) Final Date:15 September 2017 13:19
[2017-09-15] MEDS: ACETAMINOPHEN/HYDROcodone 325 MG/7.5 MG TAB PO PRN (15:21)
--- NOTE | 2017-09-15 15:24 | EKG ---
Date Performed: 09/15/2017 Time Performed: 07:39:45 PTAGE: 77 years EKG: pROBABLE ATRIAL FLUTTER 2:1 INTRAVENTRICULAR CONDUCTION DELAY ANTERIOR MYOCARDIAL INFARCTIO N INFERIOR MYOCARDIAL INFARCTION ABNORMAL ECG PREVIOUS TRACING : 09/15/2017 04.24 DOCTOR: Leoncio Chacon Interpretating Date/Time 09/15/2017 15:22:38
[2017-09-15] MEDS ORDERED: FUROSEMIDE 40 MG TAB PO ONE (17:30)
--- NOTE | 2017-09-15 19:41 | MB ---
cc: BASSEM LAW MD DATE OF CONSULTATION 09/15/2017 INDICATION [id number] myocardial infarction. HISTORY OF PRESENT ILLNESS This is a very nice 37-year-old female. She has a history of few recent hospitalizations secondary to anemia and suspected gastrointestinal bleed. She was seen by GI and had extensive workup which was essentially negative. She was discharged after hospitalization that did require transfusion as her hemoglobin was as low as 4 mg/dl. At home she started developing a cough. She noticed the dry cough became worse and she developed worsening shortness of breath. Eventually it got to the point where she came into the emergency department decompensated. Her heart rate was elevated and she was short of breath and there was chest x-ray with pulmonary edema. She was given intravenous Lasix and now actually is quite improved. CTA of the chest was negative for pulmonary embolism. She did have elevated troponin 0.4-0.5 range. Denied any inez chest pain. Additionally she had an echocardiogram which showed some valvular heart disease but reduced ejection fraction 45-50%. We are consulted for further recommendations. PAST MEDICAL HISTORY 1. Microcytic anemia consistent with iron deficiency, possible blood loss. 2. Type 2 diabetes mellitus. 3. PAD. 4. Hereditary hemorrhagic telectasia. 5. Hypertension. 6. Dyslipidemia. 7. Fibromyalgia. 8. Osteoporosis. 9. Ulcerative colitis. ALLERGIES SEE MED REC AND SEE ALLERGY LIST. MEDICATIONS Reported medications: 1. Vitamin D. 2. Levemir. 3. Ditropan. 4. Lisinopril. 5. Metformin. 6. Tamoxifen. 7. Glipizide. 8. Paroxetine. FAMILY HISTORY Denies any family history of early coronary artery disease or sudden cardia . SOCIAL HISTORY She smokes half-a-pack a day for about 20 years but stopped in the year 1999. Denies any alcohol or drug use. REVIEW OF SYSTEMS 12-point review of systems was performed negative, unless otherwise noted is history of present illness. PHYSICAL EXAMINATION VITAL SIGNS: Temperature 98, pulse 96, blood pressure 109/59 mmHg. GENERAL: Alert and oriented times three in no acute distress. HEENT: Exam shows pupils reactive to light and accommodation. Extraocular movements intact. NECK: No elevation in venous distension. No thyromegaly or lymphadenopathy. No carotid bruits. LUNGS: Clear to auscultation bilaterally. CARDIOVASCULAR: A 2/6 systolic murmur and faint diastolic murmur. ABDOMEN: Nontender. Nondistended. Good bowel sounds. No hepatosplenomegaly. EXTREMITIES: Show no clubbing, cyanosis or edema. Good peripheral pulses. NEUROLOGIC: Cranial nerves intact. Motor and sensory grossly intact. LABORATORY DATA WBC 14.9, hemoglobin 8.3, platelet counts 270. INR is 1.0. Lactate 3.2. BNP 3037. Troponin 0.45. BUN 11, creatinine 0.96. Electrocardiogram sinus tachycardia. ASSESSMENT 1. Elevated troponin. 2. Cardiomyopathy. 3. Valvular heart disease. 4. Anemia. PLAN At this point the patient presented with congestive heart failure. She has a newly documenting cardiomyopathy with ejection fraction 45-50% in addition some mild to moderate valvular heart disease involving the aortic valve and a moderate to severe tricuspid regurgitation with mild pulmonary hypertension. I do suspect her troponin elevation is likely related to demand mediated state due to her shortness of breath but there is still question as to why her ejection fraction is reduced. I do not think that her left sided valvular heart disease would be enough to decompensate the left ventricular systolic function. Electrocardiogram upon presentation did show sinus tachycardia. The follow up electrocardiogram was read as possible atrial flutter 2:1 due to the rapid rate but I suspect that is also sinus tach. We discussed several options. She potentially may require or benefit from a heart catheterization given the cardiomyopathy and elevated troponin, but I am somewhat concerned she is fairly frail and has this unknown blood loss, possible AVM maybe in the small bowel or something. I would be reluctant to get her on any antiplatelet therapy or administer anticoagulation. My thought would be is lets see how she does over the course next 24 hours. If she looks good tomorrow or the next day we could potentially do a Lexiscan to document the severity of ischemia. If there is moderate ischemia then we may be forced to proceed with an invasive strategy. If she has more mild ischemia or no ischemia then we can treat her more conservatively with long-acting nitrate. I will hold off on any beta renea given her recent shortness of breath but may consider initiation of that tomorrow. Continue with Lasix. Monitor ins and outs and blood pressure is too low to tolerate FLORECITA inhibitor. MD JOSE Castanon/ANASTACIO /5:54 PM /7:14 PM
[2017-09-15] MEDS: METFORMIN HOLD POST IV CONTRAST SCH (20:46)
[2017-09-16] VITALS (20 sets, daily range): BP systolic 100–124; BP diastolic 53–65; PULSE 85–100; RESP 21–40; TEMP 98.1–98.6; O2SAT 93–98
[2017-09-16] MEDS: PIPERACIL-TAZO 4.5 GM PREMIX 100 ML IV SCH ×4 (03:01→20:20)
[2017-09-16 05:53] LABS: HEMATOCRIT 27.1 % (35.0-46.0); HEMOGLOBIN 8.1 GM/DL (11.6-15.3); MEAN CELL VOLUME 79.3 FL (80.0-100.0); MEAN CORPUSCULAR HEMOGLOBIN 23.8 PG (27.0-34.0); PLATELET COUNT 256 TH/MM3 (150-450); RED BLOOD COUNT 3.41 MIL/MM3 (4.00-5.30); RED CELL DISTRIBUTION WIDTH 34.3 % (11.6-17.2); WHITE BLOOD COUNT 10.1 TH/MM3 (4.0-11.0)
[2017-09-16 06:00] LABS: MEAN CORPUSCULAR HGB CONC 29.9 % (32.0-36.0)
[2017-09-16 06:15] LABS: CHLORIDE 104 MEQ/L (98-107); SODIUM (NA) 138 MEQ/L (136-145)
--- NOTE | 2017-09-16 06:17 | RADRPT ---
EXAM DATE/TIME: 09/16/2017 05:28 [facility] COMPARISON: CHEST SINGLE AP, September 15, 2017, 4:20. CT PULMONARY ANGIOGRAM, September 15, 2017, 6:10. INDICATIONS : Difficulty breathing. Bilateral pleural effusions and patchy infiltrates seen on CT. MEDICAL HISTORY : Cardiovascular disease. Diabetes mellitus type 2. Carcinoma, breast SURGICAL HISTORY : Hysterectomy. CABG ENCOUNTER: Subsequent ACUITY: 2 days PAIN SCORE: 0/10 LOCATION: Bilateral chest FINDINGS: PA and lateral views the chest were obtained and again demonstrate small bilateral pleural effusion w ith blunting of the posterior costophrenic angles. There is mild streaky opacity at the lung bases wh ich is improved. The heart size remains mildly enlarged. Atherosclerotic calcifications are present i n the aorta. There are old healed left-sided rib fractures. CONCLUSION: 1. Interval decrease in bibasal opacity. 2. Small pleural effusions are again noted. Jordy Myers MD on September 16, 2017 at 6:15 Board Certified Radiologist. This report was verified electronically.
[2017-09-16 06:20] LABS: CALCIUM 8.5 MG/DL (8.5-10.1)
[2017-09-16 06:21] LABS: ALBUMIN 2.3 GM/DL (3.4-5.0); BICARBONATE 25.4 MEQ/L (21.0-32.0); LYMPHOCYTES 15 % (9-44); MONOCYTES 2 % (0-8); NEUTROPHIL # MANUAL DIFF 8.3 TH/MM3 (1.8-7.7); POLYS (SEG NEUTROPHILS) 82 % (16-70)
[2017-09-16 06:22] LABS: OVALOCYTES 1+ (NORMAL); TARGET CELLS 2+ (NORMAL)
[2017-09-16 06:29] LABS: ALKALINE PHOSPHATASE 231 U/L (45-117); ALT (GPT) 113 U/L (10-53); AST (GOT) 100 U/L (15-37); BLOOD UREA NITROGEN 15 MG/DL (7-18); CREATININE 0.99 MG/DL (0.50-1.00); GLOMERULAR FILTRATION RATE 55 ML/MIN (>89); GLUCOSE,RANDOM 75 MG/DL (74-106); TOTAL BILIRUBIN ADULT 0.7 MG/DL (0.2-1.0); TOTAL PROTEIN 6.8 GM/DL (6.4-8.2)
--- NOTE | 2017-09-16 07:09 | HHI.PR ---
Subjective Remarks Resp status much improved today. Diuresed well. Now on nc at 3 liters supplemental oxygen. Appreciate Dr Chacon's assistance. Denies CP. Objective Vitals Vital Signs Date Time Temp Pulse Resp B/P (MAP) Pulse Ox O2 Delivery O2 Flow Rate FiO2 09/16/17 04:00 98.4 98 23 116/60 (78) 95 09/16/17 04:00 98 09/16/17 00:00 88 09/16/17 00:00 98.1 88 32 117/65 (82) 98 09/15/17 22:01 98 09/15/17 22:01 98 33 124/66 (85) 96 09/15/17 20:35 97 Nasal Cannula 3.00 09/15/17 20:26 97 Nasal Cannula 4.50 09/15/17 20:00 98.4 97 29 114/61 (78) 97 09/15/17 20:00 97 09/15/17 16:00 96 09/15/17 16:00 98.6 96 109/59 (76) 09/15/17 14:00 88 09/15/17 12:00 99.5 88 109/58 (75) 09/15/17 11:47 86 09/15/17 11:30 96 Nasal Cannula 6.00 09/15/17 11:11 98.1 104 119/58 (78) 09/15/17 10:07 98 24 119/54 (75) 99 BiPAP 50 09/15/17 09:30 98 20 121/58 (79) 99 BiPAP 50 09/15/17 09:15 103 24 133/67 (89) 99 BiPAP 50 09/15/17 09:10 103 24 98 BiPAP 50 09/15/17 09:02 98 50 09/15/17 08:15 100 22 110/68 (82) 98 BiPAP 50 09/15/17 07:30 97.6 98 24 118/52 (74) 98 BiPAP 50 09/15/17 07:15 114 22 BiPAP 50 09/15/17 07:15 97.8 120 24 114/57 (76) 98 BiPAP 50 GENERAL: awake/alert, NAD, n/c in place, a/o. SKIN: Warm and dry. HEAD: Normocephalic. EYES: No scleral icterus. No injection or drainage. NECK: Supple, trachea midline. No JVD or lymphadenopathy. CARDIOVASCULAR: Regular rate and rhythm without murmurs, gallops, or rubs. RESPIRATORY: Few scattered crackles bilat, no wheeze, Breath sounds equal bilaterally. No accessory muscle use. GASTROINTESTINAL: Abdomen soft, non-tender, nondistended. BS nml. MUSCULOSKELETAL: No cyanosis. trace edema BLE distally (improved), MAEW. No palpable cords. BACK: No CVA tenderness. Result Diagram: 09/16/17 0500 09/16/17 0500 Imaging Last 72 hours Impressions Chest X-Ray 09/15/17 0410 Signed Impressions: Service Date/Time: Friday, September 15, 2017 04:20 - CONCLUSION: Cardiomegaly and interstitial opacities most characteristic of congestive heart failure. Jordy Myers MD CT Angiography 09/15/17 0000 Signed Impressions: Service Date/Time: Friday, September 15, 2017 06:10 - CONCLUSION: 1. No evidence of pulmonary embolism. 2. Small to moderate bilateral pleural effusions. 3. Patchy parenchymal infiltrate with small nodular areas in the right lung likely infectious or inflammatory. Followup CT is recommended after treatment. 4. There is consolidation in the posterior lung bases. Jordy Myers MD Urinary Catheter: No Vascular Central Line Catheter: No A/P Problem List: (1) Congestive heart failure ICD Codes: I50.9 - Heart failure, unspecified Status: Acute Plan: Questionable etiology. Echo noted and troponins slightly elevated, but stable. Dr Chacon's assistance appreciated. Continue current treatment. Possibly transfer to med/surg today. (2) Pulmonary edema ICD Codes: J81.1 - Chronic pulmonary edema Status: Acute Plan: As noted above. Questionable etiology. Doubt transfusion related given that her transfusion was over a week ago. Clinically much improved. Converted to oral lasix. Monitor K+. (3) Elevated troponin ICD Codes: R74.8 - Abnormal levels of other serum enzymes Status: Acute Plan: Possible demand mediated elevation. She appears to have poor R-wave progression and some possible Q-wave development and lateral leads. This appears new compared to most recent EKG done September 13. (4) DM2 (diabetes mellitus, type 2) ICD Codes: E11.9 - Type 2 diabetes mellitus without complications Status: Chronic Plan: Provide sliding scale insulin with Accu-Cheks. (5) Hypertension ICD Codes: I10 - Essential (primary) hypertension Status: Chronic Plan: We'll treat as blood pressure allows. Tolerating low dose BB. (6) Iron deficiency anemia ICD Codes: D50.9 - Iron deficiency anemia, unspecified Status: Chronic Plan: Hemoglobin stable with recent inpatient values. Continue to follow. Outpatient evaluation with hematology ongoing. Hesitant to give anticoag due to possible AVMs with possible small bowel source. Will use SCDs for dvt proph. Encouraged pt to wear and she agreed to be more compliant. Discharge Planning possible transfer to med/surg later today Problem Qualifiers (1) Congestive heart failure: Qualified Codes: I50.9 - Heart failure, unspecified (2) Pulmonary edema: Qualified Codes: J81.0 - Acute pulmonary edema (3) DM2 (diabetes mellitus, type 2): (4) Hypertension: Qualified Codes: I10 - Essential (primary) hypertension Eduardo Main MD PhD Sep 16, 2017 07:09
--- NOTE | 2017-09-16 07:51 | PD.CARD.PN ---
Subjective Subjective Remarks Patient reports breathing continues to improve today. She reports good urine output with diuresis. She denies any chest pain or palpitations. Objective Medications Current Medications Medications (Trade) Dose Ordered Sig/Fatoumata Route Start Time Stop Time Status Last Admin (NS Flush) 2 ml UNSCH PRN IVF 09/15/17 04:15 09/15/17 09:15 (NovoLOG SUPPLEMENTAL SCALE) 1 ACHS SLIDING SCALE SQ 09/15/17 08:00 09/15/17 20:37 Piperacillin Sod/ Tazobactam Sod 100 ml @ 200 mls/hr Q6H IV 09/15/17 08:00 09/16/17 03:01 Azithromycin 500 mg/Sodium Chloride 250 ml @ 250 mls/hr Q24H IV 09/15/17 08:00 09/15/17 09:15 ([place] 7.5-325 Mg) 1 tab Q4H PRN PO 09/15/17 09:15 09/15/17 15:21 (Ditropan) 5 mg DAILY PO 09/16/17 09:00 (Paxil) 20 mg DAILY PO 09/16/17 09:00 (Lopressor) 12.5 mg Q12HR PO 09/15/17 09:15 09/15/17 20:38 (Pill Splitter) 1 ea UNSCH PRN OTHER 09/15/17 09:30 (Lasix) 40 mg DAILY PO 09/16/17 09:00 (KCl) 30 meq DAILY PO 09/16/17 09:00 Miscellaneous Information HOLD METFORMIN FOR... Q24H .XX 09/15/17 21:00 09/17/17 20:59 (KCl) 30 meq ONCE ONCE PO 09/16/17 08:00 09/16/17 08:01 (Questran 4 Gm Pkt) 4 gm Q12HR PO 09/16/17 09:00 Vital Signs / I&O Vital Signs Date Time Temp Pulse Resp B/P (MAP) Pulse Ox O2 Delivery O2 Flow Rate FiO2 09/16/17 04:00 98.4 98 23 116/60 (78) 95 09/16/17 04:00 98 09/16/17 00:00 88 09/16/17 00:00 98.1 88 32 117/65 (82) 98 09/15/17 22:01 98 09/15/17 22:01 98 33 124/66 (85) 96 09/15/17 20:35 97 Nasal Cannula 3.00 09/15/17 20:26 97 Nasal Cannula 4.50 09/15/17 20:00 98.4 97 29 114/61 (78) 97 09/15/17 20:00 97 09/15/17 16:00 96 09/15/17 16:00 98.6 96 109/59 (76) 09/15/17 14:00 88 09/15/17 12:00 99.5 88 109/58 (75) 09/15/17 11:47 86 09/15/17 11:30 96 Nasal Cannula 6.00 09/15/17 11:11 98.1 104 119/58 (78) 09/15/17 10:07 98 24 119/54 (75) 99 BiPAP 50 09/15/17 09:30 98 20 121/58 (79) 99 BiPAP 50 09/15/17 09:15 103 24 133/67 (89) 99 BiPAP 50 09/15/17 09:10 103 24 98 BiPAP 50 09/15/17 09:02 98 50 09/15/17 08:15 100 22 110/68 (82) 98 BiPAP 50 I/O 09/15/17 09/15/17 09/15/17 09/16/17 09/16/17 09/16/17 07:00 15:00 23:00 07:00 15:00 23:00 Intake Total 350 ml 200 ml 580 ml Output Total 1000 ml 401 ml 1007 ml Balance -1000 ml 350 ml -201 ml -427 ml Intake Oral 480 ml IV Total 350 ml 200 ml 100 ml Output Urine Total 1000 ml 400 ml 1000 ml Stool Total 1 ml 7 ml # Voids 2 2 Physical Exam GENERAL: Well-developed well-nourished. In no acute distress. NECK: No carotid bruits. No JVD. CARDIOVASCULAR: Slightly tachycardic regular rate and rhythm. No murmur appreciated. RESPIRATORY: No accessory muscle use. Clear to auscultation. Breath sounds equal bilaterally. MUSCULOSKELETAL: No clubbing or cyanosis. No edema. NEUROLOGICAL: Awake and alert. Normal speech. Laboratory Laboratory Tests Test 09/15/17 09:47 09/15/17 13:59 09/16/17 05:00 White Blood Count 14.9 TH/MM3 10.1 TH/MM3 Red Blood Count 3.29 MIL/MM3 3.41 MIL/MM3 Hemoglobin 8.3 GM/DL 8.1 GM/DL Hematocrit 25.9 % 27.1 % Mean Corpuscular Volume 78.8 FL 79.3 FL Mean Corpuscular Hemoglobin 25.2 PG 23.8 PG Mean Corpuscular Hemoglobin Concent 32.0 % 29.9 % Red Cell Distribution Width 33.4 % 34.3 % Platelet Count 270 TH/MM3 256 TH/MM3 Mean Platelet Volume 10.3 FL 11.0 FL CBC Comment AUTO DIFF AUTO DIFF Differential Total Cells Counted 100 100 Neutrophils % (Manual) 84 % 82 % Band Neutrophils % 1 % Lymphocytes % 11 % 15 % Monocytes % 4 % 2 % Neutrophils # (Manual) 12.7 TH/MM3 8.3 TH/MM3 Nucleated Red Blood Cells 4 /100 WBC Differential Comment FINAL DIFF MANUAL FINAL DIFF MANUAL Platelet Estimate NORMAL NORMAL Platelet Morphology Comment NORMAL ENLARGED Target Cells 2+ 2+ Keratocytes 1+ Lactic Acid Level 3.2 mmol/L Troponin I 0.42 NG/ML 0.45 NG/ML Eosinophils % 1 % Ovalocytes 1+ Blood Urea Nitrogen 15 MG/DL Creatinine 0.99 MG/DL Random Glucose 75 MG/DL Total Protein 6.8 GM/DL Albumin 2.3 GM/DL Calcium Level 8.5 MG/DL Alkaline Phosphatase 231 U/L Aspartate Amino Transf (AST/SGOT) 100 U/L Alanine Aminotransferase (ALT/SGPT) 113 U/L Total Bilirubin 0.7 MG/DL Sodium Level 138 MEQ/L Potassium Level 3.4 MEQ/L Chloride Level 104 MEQ/L Carbon Dioxide Level 25.4 MEQ/L Anion Gap 9 MEQ/L Estimat Glomerular Filtration Rate 55 ML/MIN B-Type Natriuretic Peptide 2658 PG/ML Imaging Last 24 hours Impressions Chest X-Ray 09/16/17 0600 Signed Impressions: Service Date/Time: August 05:28 - CONCLUSION: 1. Interval decrease in bibasal opacity. 2. Small pleural effusions are again noted. Jordy Myers MD Assessment and Plan Assessment and Plan 77-year-old female with recent hospitalization for anemia and suspected GI bleed. The patient presented with cough and shortness of breath. She was found to have pulmonary edema in the ED. Troponins were elevated and the 0.40.5 range. No chest pain. Echocardiogram showed some mild to moderate valvular heart disease with EF of 45-50 %. Acute systolic congestive heart failure: Continue with Lasix and monitor I's and O's. Low-dose Metoprolol was started. New-onset cardiomyopathy: EF 45-50 %. With recent GI bleeding, we'll assess for possible ischemic burden with Lexiscan (tentatively tomorrow) when breathing improves. BP too soft for FLORECITA inhibitor at this time. Mark Boss Sep 16, 2017 07:51
[2017-09-16] MEDS: INSULIN ASPART SUPPLEMENTAL SCALE SQ SCH ×4 (08:00→20:39)
[2017-09-16] MEDS ORDERED: POTASSIUM CHLORIDE 10 MEQ CONTROLLED RELEASE TAB PO ONE (08:00)
--- NOTE | 2017-09-16 08:12 | EKG ---
Date Performed: 09/15/2017 Time Performed: 21:27:44 PTAGE: 77 years EKG: Sinus rhythm POSSIBLE ANTERIOR MYOCARDIAL INFARCTION INFERIOR MYOCARDIAL INFARCTION Compared to previous tracing the patient is no longer in atrial fibrillation ABNORMAL ECG PREVIOUS TRACING : 09/15/2017 07.39 DOCTOR: Mihcelle Grossman Interpretating Date/Time 09/16/2017 08:10:22
[2017-09-16] MEDS: CHOLESTYRAMINE 4 GM PACKET PO SCH ×2 (08:19→20:20)
[2017-09-16] MEDS: PARoxetine HCL 20 MG TAB PO SCH (08:19)
[2017-09-16] MEDS: METOPROLOL TARTRATE 25 MG TAB PO SCH ×2 (08:20→20:20)
[2017-09-16] MEDS: POTASSIUM CHLORIDE 10 MEQ CONTROLLED RELEASE TAB PO SCH (08:20)
[2017-09-16] MEDS: AZITHROMYCIN INJ 500 MG in SODIUM CHLOR 0.9% 250 ML INJ 250 ML IV SCH (08:21)
[2017-09-16] MEDS ORDERED: FUROSEMIDE 40 MG TAB PO SCH (09:00)
[2017-09-16] MEDS: OXYBUTYNIN CHLORIDE 5 MG TAB PO SCH (09:14)
[2017-09-16] MEDS: ACETAMINOPHEN/HYDROcodone 325 MG/7.5 MG TAB PO PRN (09:36)
[2017-09-16] MEDS: METFORMIN HOLD POST IV CONTRAST SCH (20:20)
[2017-09-16] MEDS: TEMAZEPAM 15 MG CAP PO PRN (22:19)
[2017-09-17] VITALS (11 sets, daily range): BP systolic 85–152; BP diastolic 49–70; PULSE 76–96; RESP 26–32; TEMP 98.2–98.5; O2SAT 93–95
[2017-09-17] MEDS: PIPERACIL-TAZO 4.5 GM PREMIX 100 ML IV SCH (02:40)
[2017-09-17 04:55] LABS: HEMATOCRIT 28.5 % (35.0-46.0); HEMOGLOBIN 8.4 GM/DL (11.6-15.3); MEAN CELL VOLUME 79.7 FL (80.0-100.0); MEAN CORPUSCULAR HEMOGLOBIN 23.4 PG (27.0-34.0); MEAN PLATELET VOLUME 11.5 FL (7.0-11.0); PLATELET COUNT 271 TH/MM3 (150-450); RED BLOOD COUNT 3.58 MIL/MM3 (4.00-5.30); RED CELL DISTRIBUTION WIDTH 35.5 % (11.6-17.2); WHITE BLOOD COUNT 10.8 TH/MM3 (4.0-11.0)
[2017-09-17 04:56] LABS: MEAN CORPUSCULAR HGB CONC 29.3 % (32.0-36.0)
[2017-09-17 05:03] LABS: CHLORIDE 104 MEQ/L (98-107); SODIUM (NA) 138 MEQ/L (136-145)
[2017-09-17 05:05] LABS: BANDS 1 % (0-6); BASOPHILS 1 % (0-2); KERATOCYTES OCC (NORMAL); LYMPHOCYTES 27 % (9-44); MONOCYTES 2 % (0-8); NEUTROPHIL # MANUAL DIFF 7.5 TH/MM3 (1.8-7.7); OVALOCYTES 1+ (NORMAL); POLYS (SEG NEUTROPHILS) 68 % (16-70); TARGET CELLS 1+ (NORMAL)
[2017-09-17 05:07] LABS: CALCIUM 8.9 MG/DL (8.5-10.1)
[2017-09-17 05:08] LABS: ALBUMIN 2.4 GM/DL (3.4-5.0); BLOOD UREA NITROGEN 21 MG/DL (7-18); GLUCOSE,RANDOM 99 MG/DL (74-106)
[2017-09-17 05:11] LABS: ALT (GPT) 111 U/L (10-53); AST (GOT) 80 U/L (15-37); GLOMERULAR FILTRATION RATE 44 ML/MIN (>89)
[2017-09-17 05:12] LABS: TOTAL BILIRUBIN ADULT 0.9 MG/DL (0.2-1.0); TOTAL PROTEIN 7.2 GM/DL (6.4-8.2)
[2017-09-17 05:14] LABS: ALKALINE PHOSPHATASE 237 U/L (45-117)
--- NOTE | 2017-09-17 06:56 | HHI.PR ---
Subjective Remarks Did relatively well overnight from respiratory standpoint, however she did not sleep much. Her son reports she has difficulty sleeping is tried many sleeping aids as an outpatient. Denies chest pain. Reports breathing more easily. Objective Vitals Vital Signs Date Time Temp Pulse Resp B/P (MAP) Pulse Ox O2 Delivery O2 Flow Rate FiO2 09/17/17 06:00 90 09/17/17 04:00 98.2 82 27 134/69 (90) 94 09/17/17 04:00 90 09/17/17 02:00 90 09/17/17 00:00 88 09/17/17 00:00 98.2 82 27 95/49 (64) 09/16/17 22:00 86 09/16/17 21:12 93 21 09/16/17 21:00 86 21 96 09/16/17 20:00 90 09/16/17 20:00 98.6 90 28 96 09/16/17 19:34 94 35 113/59 (77) 09/16/17 19:34 94 09/16/17 19:00 90 09/16/17 18:00 94 09/16/17 17:44 94 09/16/17 17:44 94 34 116/62 (80) 96 09/16/17 17:00 90 09/16/17 16:59 98.5 90 40 124/53 (76) 94 09/16/17 14:55 85 09/16/17 14:46 86 32 119/58 (78) 95 09/16/17 12:00 98.1 09/16/17 11:37 86 35 101/61 (74) 94 09/16/17 09:44 90 30 100/54 (69) 97 09/16/17 08:25 96 Nasal Cannula 3.00 09/16/17 08:11 100 39 119/65 (83) 95 09/16/17 08:00 89 09/16/17 08:00 98.1 GENERAL: Drowsy, arouses to voice. Alert and oriented. She is able to tell me her location, month, recalls my name but is a little fuzzy on the actual date of the month. SKIN: Warm and dry. HEAD: Normocephalic. EYES: No scleral icterus. No injection or drainage. Extraocular motions intact. NECK: Supple, trachea midline. No JVD or lymphadenopathy. CARDIOVASCULAR: Regular rate and rhythm without murmurs, gallops, or rubs. RESPIRATORY: Breath sounds equal bilaterally. Occasional expiratory wheeze with prolonged expiratory phase. No crackles. GASTROINTESTINAL: Abdomen soft, non-tender, nondistended. Bowel sounds normal. MUSCULOSKELETAL: No cyanosis, or edema. BACK: No CVA tenderness. Result Diagram: 09/17/17 0445 09/17/17 0445 Imaging Last 72 hours Impressions Chest X-Ray 09/15/17 0410 Signed Impressions: Service Date/Time: Friday, September 15, 2017 04:20 - CONCLUSION: Cardiomegaly and interstitial opacities most characteristic of congestive heart failure. Jordy Myers MD CT Angiography 09/15/17 0000 Signed Impressions: Service Date/Time: Friday, September 15, 2017 06:10 - CONCLUSION: 1. No evidence of pulmonary embolism. 2. Small to moderate bilateral pleural effusions. 3. Patchy parenchymal infiltrate with small nodular areas in the right lung likely infectious or inflammatory. Followup CT is recommended after treatment. 4. There is consolidation in the posterior lung bases. Jordy Myers MD Urinary Catheter: No Vascular Central Line Catheter: No A/P Problem List: (1) Congestive heart failure ICD Codes: I50.9 - Heart failure, unspecified Status: Acute Plan: Questionable etiology. Echo noted and troponins slightly elevated, but stable. Dr Chacon's assistance appreciated. Planning stress test today. We will decrease Lasix dose. (2) Pulmonary edema ICD Codes: J81.1 - Chronic pulmonary edema Status: Acute Plan: As noted above. Questionable etiology. Doubt transfusion related given that her transfusion was over a week ago. Clinically much improved. Converted to oral lasix. Monitor K+. (3) Elevated troponin ICD Codes: R74.8 - Abnormal levels of other serum enzymes Status: Acute Plan: Possible demand mediated elevation. She appears to have poor R-wave progression and some possible Q-wave development and lateral leads. This appears new compared to most recent EKG done September 13. (4) DM2 (diabetes mellitus, type 2) ICD Codes: E11.9 - Type 2 diabetes mellitus without complications Status: Chronic Plan: Provide sliding scale insulin with Accu-Cheks. Resume home insulin (5) Hypertension ICD Codes: I10 - Essential (primary) hypertension Status: Chronic Plan: We'll treat as blood pressure allows. Tolerating low dose BB. (6) Iron deficiency anemia ICD Codes: D50.9 - Iron deficiency anemia, unspecified Status: Chronic Plan: Hemoglobin stable with recent inpatient values. Continue to follow. Outpatient evaluation with hematology ongoing. Hesitant to give anticoag due to possible AVMs with possible small bowel source. Will use SCDs for dvt proph. Encouraged pt to wear and she agreed to be more compliant. Discharge Planning possible DC to rehab today depending on outcome of stress test and her clinical progress. Problem Qualifiers (1) Congestive heart failure: Qualified Codes: I50.9 - Heart failure, unspecified (2) Pulmonary edema: Qualified Codes: J81.0 - Acute pulmonary edema (3) DM2 (diabetes mellitus, type 2): (4) Hypertension: Qualified Codes: I10 - Essential (primary) hypertension Eduardo Main MD PhD Sep 17, 2017 06:56
[2017-09-17] MEDS ORDERED: methylPREDNISolone SOD SUCC 40 MG/1 ML VIAL IV PUSH ONE (07:00)
--- NOTE | 2017-09-17 07:43 | PD.CARD.PN ---
Subjective Subjective Remarks Good urine output w/ diuresis and continued neg fluid balance. Pt reports breathing is nearly back to baseline and currently on RA. No CP. Objective Medications Current Medications Medications (Trade) Dose Ordered Sig/Fatoumata Route Start Time Stop Time Status Last Admin (NS Flush) 2 ml UNSCH PRN IVF 09/15/17 04:15 09/15/17 09:15 (NovoLOG SUPPLEMENTAL SCALE) 1 ACHS SLIDING SCALE SQ 09/15/17 08:00 09/16/17 20:39 ([place] 7.5-325 Mg) 1 tab Q4H PRN PO 09/15/17 09:15 09/16/17 09:36 (Ditropan) 5 mg DAILY PO 09/16/17 09:00 09/16/17 09:14 (Paxil) 20 mg DAILY PO 09/16/17 09:00 09/16/17 08:19 (Lopressor) 12.5 mg Q12HR PO 09/15/17 09:15 09/16/17 20:20 (Pill Splitter) 1 ea UNSCH PRN OTHER 09/15/17 09:30 (KCl) 30 meq DAILY PO 09/16/17 09:00 09/16/17 08:20 Miscellaneous Information HOLD METFORMIN FOR... Q24H .XX 09/15/17 21:00 09/17/17 20:59 (Restoril) 15 mg HS PRN PO 09/16/17 21:45 09/16/17 22:19 (Levemir Inj) 8 units HS SQ 09/17/17 21:00 (Lasix) 20 mg DAILY PO 09/17/17 09:00 Vital Signs / I&O Vital Signs Date Time Temp Pulse Resp B/P (MAP) Pulse Ox O2 Delivery O2 Flow Rate FiO2 09/17/17 06:00 90 09/17/17 04:00 98.2 82 27 134/69 (90) 94 09/17/17 04:00 90 09/17/17 02:00 90 09/17/17 00:00 88 09/17/17 00:00 98.2 82 27 95/49 (64) 09/16/17 22:00 86 09/16/17 21:12 93 21 09/16/17 21:00 86 21 96 09/16/17 20:00 90 09/16/17 20:00 98.6 90 28 96 09/16/17 19:34 94 35 113/59 (77) 09/16/17 19:34 94 09/16/17 19:00 90 09/16/17 18:00 94 09/16/17 17:44 94 09/16/17 17:44 94 34 116/62 (80) 96 09/16/17 17:00 90 09/16/17 16:59 98.5 90 40 124/53 (76) 94 09/16/17 14:55 85 09/16/17 14:46 86 32 119/58 (78) 95 09/16/17 12:00 98.1 09/16/17 11:37 86 35 101/61 (74) 94 09/16/17 09:44 90 30 100/54 (69) 97 09/16/17 08:25 96 Nasal Cannula 3.00 09/16/17 08:11 100 39 119/65 (83) 95 09/16/17 08:00 89 09/16/17 08:00 98.1 I/O 09/16/17 09/16/17 09/16/17 09/17/17 09/17/17 09/17/17 07:00 15:00 23:00 07:00 15:00 23:00 Intake Total 580 ml 350 ml 100 ml 240 ml Output Total 1007 ml 1701 ml 950 ml Balance -427 ml 350 ml -1601 ml -710 ml Intake Oral 480 ml 240 ml IV Total 100 ml 350 ml 100 ml Output Urine Total 1000 ml 1700 ml 950 ml Stool Total 7 ml 1 ml # Voids 4 # Bowel Movements 5 Physical Exam GENERAL: Well-developed well-nourished. In no acute distress. NECK: No carotid bruits. No JVD. CARDIOVASCULAR: Slightly tachycardic regular rate and rhythm. No murmur appreciated. RESPIRATORY: No accessory muscle use. Clear to auscultation. Breath sounds equal bilaterally. MUSCULOSKELETAL: No clubbing or cyanosis. No edema. NEUROLOGICAL: Awake and alert. Normal speech. Laboratory Laboratory Tests Test 09/16/17 14:02 09/17/17 04:45 Ammonia 32 MCMOL/L White Blood Count 10.8 TH/MM3 Red Blood Count 3.58 MIL/MM3 Hemoglobin 8.4 GM/DL Hematocrit 28.5 % Mean Corpuscular Volume 79.7 FL Mean Corpuscular Hemoglobin 23.4 PG Mean Corpuscular Hemoglobin Concent 29.3 % Red Cell Distribution Width 35.5 % Platelet Count 271 TH/MM3 Mean Platelet Volume 11.5 FL CBC Comment AUTO DIFF Differential Total Cells Counted 100 Neutrophils % (Manual) 68 % Band Neutrophils % 1 % Lymphocytes % 27 % Monocytes % 2 % Eosinophils % 1 % Basophils % 1 % Neutrophils # (Manual) 7.5 TH/MM3 Differential Comment FINAL DIFF MANUAL Platelet Estimate NORMAL Platelet Morphology Comment NORMAL Target Cells 1+ Ovalocytes 1+ Keratocytes OCC Blood Urea Nitrogen 21 MG/DL Creatinine 1.20 MG/DL Random Glucose 99 MG/DL Total Protein 7.2 GM/DL Albumin 2.4 GM/DL Calcium Level 8.9 MG/DL Alkaline Phosphatase 237 U/L Aspartate Amino Transf (AST/SGOT) 80 U/L Alanine Aminotransferase (ALT/SGPT) 111 U/L Total Bilirubin 0.9 MG/DL Sodium Level 138 MEQ/L Potassium Level 3.8 MEQ/L Chloride Level 104 MEQ/L Carbon Dioxide Level 22.0 MEQ/L Anion Gap 12 MEQ/L Estimat Glomerular Filtration Rate 44 ML/MIN Imaging Last Impressions Chest X-Ray 09/16/17 0600 Signed Impressions: Service Date/Time: August 05:28 - CONCLUSION: 1. Interval decrease in bibasal opacity. 2. Small pleural effusions are again noted. Jordy Meyrs MD CT Angiography 09/15/17 0000 Signed Impressions: Service Date/Time: Friday, September 15, 2017 06:10 - CONCLUSION: 1. No evidence of pulmonary embolism. 2. Small to moderate bilateral pleural effusions. 3. Patchy parenchymal infiltrate with small nodular areas in the right lung likely infectious or inflammatory. Followup CT is recommended after treatment. 4. There is consolidation in the posterior lung bases. Jordy Myers MD Assessment and Plan Assessment and Plan 77-year-old female with recent hospitalization for anemia and suspected GI bleed. The patient presented with cough and shortness of breath. She was found to have pulmonary edema in the ED. Troponins were elevated and the 0.40.5 range. No chest pain. Echocardiogram showed some mild to moderate valvular heart disease with EF of 45-50 %. Acute systolic congestive heart failure: Clinically improved. Lasix decreased to 20mg w/ slight creatinine increase. Low-dose Metoprolol was started. New-onset cardiomyopathy: EF 45-50 %. With recent GI bleeding, we'll assess for possible ischemic burden with Lexiscan today. If Lexiscan non ischemic or if mild ischemia, will plan for continued medical management. If stress test showing moderate ischemia or worse, then please transfer to the main hospital and will consider more invasive testing next week. BP too soft for FLORECITA inhibitor at this time. Will follow peripherally regarding stress result. Please call with any questions. Discussed Condition With Mark Gastelum Sep 17, 2017 07:43
[2017-09-17] MEDS: INSULIN ASPART SUPPLEMENTAL SCALE SQ SCH ×4 (08:00→20:48)
[2017-09-17] MEDS: OXYBUTYNIN CHLORIDE 5 MG TAB PO SCH (08:20)
[2017-09-17] MEDS: POTASSIUM CHLORIDE 10 MEQ CONTROLLED RELEASE TAB PO SCH (08:21)
[2017-09-17] MEDS: METOPROLOL TARTRATE 25 MG TAB PO SCH ×3 (08:21→22:39)
[2017-09-17] MEDS: FUROSEMIDE 20 MG TAB PO SCH (08:22)
[2017-09-17] MEDS: PARoxetine HCL 20 MG TAB PO SCH (08:25)
[2017-09-17] MEDS ORDERED: REGADENOSON INJ 0.4 MG/5 ML SYR IV ONE (10:19)
--- NOTE | 2017-09-17 12:01 | RADRPT ---
EXAM DATE/TIME: 09/17/2017 09:59 [facility] COMPARISON: No previous studies available for comparison. INDICATIONS : Shortness of breath with chest pressure for one day. Congestive heart failure. DOSE: 26.3 mCi Tc99m Myoview at stress. 8.7 mCi Tc99m Myoview at rest. 0.4 mg Lexiscan STRESS SYMPTOMS: EJECTION FRACTION: 39% MEDICAL HISTORY : Diabetes mellitus type 2. Carcinoma, breast. Hypertension. SURGICAL HISTORY : Tonsillectomy. Hysterectomy. Abdominal aortic aneurysm repair. ENCOUNTER: Initial ACUITY: 1 day PAIN SCALE: 1/10 LOCATION: chest TECHNIQUE: The patient underwent pharmacologic stress with infusion of prescribed dose. Continuous ECG tracing was monitored during stress. Gated SPECT imaging was performed after stress and conventional SPECT i maging was performed at rest. The examination was performed on a SPECT/CT scanner, both attenuation and non-corrected datasets were reviewed. FINDINGS: DISTRIBUTION: The maximum perfused segment at stress is in the lateral basal wall. PERFUSION STUDY: There is a fixed perfusion defect with absent activity in the apex and fixed perfusion defect extendi ng along the inferoseptal wall to the base. There is no redistribution. The summed stress score is 18. GATED STUDY: There is hypokinesis/akinesis of the septal and inferoseptal segments. Ejection fraction is depresse d at 39%. CONCLUSION: 1. Large fixed perfusion defect involving the apex and inferior segments without evidence of redistri bution suggests transmural infarction. 2. Depressed ejection fraction of 39% and associated wall motion abnormalities involving the septum a nd inferior michaud. RISK CATEGORY: Intermediate (1-3% Annual Mortality Rate) Bob Henley MD on September 17, 2017 at 11:47 Board Certified Radiologist. This report was verified electronically.
[2017-09-17] MEDS ORDERED: ONDANSETRON HCL 4 MG/2 ML VIAL IV PUSH PRN (13:15)
--- NOTE | 2017-09-17 16:30 | EKG ---
Date Performed: 09/17/2017 Time Performed: 14:56:38 PTAGE: 77 years EKG: Sinus rhythm LOW QRS VOLTAGE IN PRECORDIAL LEADS POSSIBLE ANTERIOR MYOCARDIAL INFARCTION INFERIOR MYOCARDIAL INFA RCTION ABNORMAL ECG PREVIOUS TRACING : 09/15/2017 21.27 No significant change from previous tracing noted. DOCTOR: Carlos Knowles Interpretating Date/Time 09/17/2017 16:29:23
[2017-09-17] MEDS ORDERED: METOPROLOL TARTRATE 5 MG/5 ML VIAL IV PUSH PRN (17:15)
[2017-09-17] MEDS: INSULIN DETEMIR 100 UNITS/ML VIAL SQ SCH (20:47)
[2017-09-18] VITALS (12 sets, daily range): BP systolic 108–144; BP diastolic 57–80; PULSE 70–88; RESP 20–27; TEMP 96.3–98.5; O2SAT 91–97
[2017-09-18] MEDS: ACETAMINOPHEN/HYDROcodone 325 MG/7.5 MG TAB PO PRN ×2 (02:22→12:23)
[2017-09-18 07:09] LABS: CHLORIDE 105 MEQ/L (98-107); SODIUM (NA) 138 MEQ/L (136-145)
[2017-09-18 07:14] LABS: ALBUMIN 2.2 GM/DL (3.4-5.0); BLOOD UREA NITROGEN 31 MG/DL (7-18); CALCIUM 8.9 MG/DL (8.5-10.1); GLUCOSE,RANDOM 135 MG/DL (74-106)
[2017-09-18 07:17] LABS: ALT (GPT) 97 U/L (10-53); AST (GOT) 69 U/L (15-37); GLOMERULAR FILTRATION RATE 37 ML/MIN (>89)
[2017-09-18 07:19] LABS: TOTAL BILIRUBIN ADULT 0.6 MG/DL (0.2-1.0); TOTAL PROTEIN 6.8 GM/DL (6.4-8.2)
[2017-09-18 07:20] LABS: ALKALINE PHOSPHATASE 227 U/L (45-117)
[2017-09-18] MEDS: INSULIN ASPART SUPPLEMENTAL SCALE SQ SCH ×4 (08:00→20:58)
[2017-09-18] MEDS: OXYBUTYNIN CHLORIDE 5 MG TAB PO SCH (08:11)
[2017-09-18] MEDS: PARoxetine HCL 20 MG TAB PO SCH (08:11)
[2017-09-18] MEDS: FUROSEMIDE 20 MG TAB PO SCH (08:11)
[2017-09-18] MEDS: POTASSIUM CHLORIDE 10 MEQ CONTROLLED RELEASE TAB PO SCH (08:11)
[2017-09-18] MEDS: METOPROLOL TARTRATE 25 MG TAB PO SCH ×2 (08:20→20:55)
--- NOTE | 2017-09-18 10:14 | HHI.PR ---
Subjective Remarks Patient feeling better today ,no confusion no SOB will get PT to evaluate i believe will need rehab for strengthening Objective Vitals GENERAL: SKIN: Warm and dry. HEAD: Atraumatic. Normocephalic. EYES: Pupils equal and round. No scleral icterus. No injection or drainage. ENT: No nasal bleeding or discharge. Mucous membranes pink and moist. NECK: Trachea midline. No JVD. CARDIOVASCULAR: Regular rate and rhythm. RESPIRATORY: No accessory muscle use. Clear to auscultation. Breath sounds slightly decreased bilaterally. GASTROINTESTINAL: Abdomen soft, non-tender, nondistended. Hepatic and splenic margins not palpable. MUSCULOSKELETAL: Extremities without clubbing, cyanosis, or edema. No obvious deformities. NEUROLOGICAL: Awake and alert. No obvious cranial nerve deficits. Motor grossly within normal limits. Five out of 5 muscle strength in the arms and legs. Normal speech. PSYCHIATRIC: Appropriate mood and affect; insight and judgment normal. Vital Signs Date Time Temp Pulse Resp B/P (MAP) Pulse Ox O2 Delivery O2 Flow Rate FiO2 09/18/17 08:00 97.5 78 27 110/60 (77) 09/18/17 08:00 78 09/18/17 07:34 97.5 09/18/17 04:00 98.1 76 23 108/59 (75) 95 09/18/17 04:00 76 09/18/17 00:00 76 09/18/17 00:00 76 27 108/57 (74) 97 09/17/17 22:39 76 26 119/63 (81) 09/17/17 22:00 85 09/17/17 22:00 98.4 85 26 Automatic Cuff 93 09/17/17 21:03 93 21 09/17/17 20:00 92 09/17/17 20:00 92 28 152/68 (96) 09/17/17 16:00 98.3 96 28 141/70 (93) 09/17/17 16:00 94 09/17/17 12:00 92 09/17/17 12:00 98.2 94 32 142/66 (91) 95 09/18/17 09/18/17 09/19/17 15:00 23:00 07:00 Intake Total 120 ml Balance 120 ml Intake Oral 120 ml Result Diagram: 09/17/17 0445 09/18/17 0546 Imaging Last 72 hours Impressions Chest X-Ray 09/15/17 0410 Signed Impressions: Service Date/Time: Friday, September 15, 2017 04:20 - CONCLUSION: Cardiomegaly and interstitial opacities most characteristic of congestive heart failure. Jordy Myers MD CT Angiography 09/15/17 0000 Signed Impressions: Service Date/Time: Friday, September 15, 2017 06:10 - CONCLUSION: 1. No evidence of pulmonary embolism. 2. Small to moderate bilateral pleural effusions. 3. Patchy parenchymal infiltrate with small nodular areas in the right lung likely infectious or inflammatory. Followup CT is recommended after treatment. 4. There is consolidation in the posterior lung bases. Jordy Myers MD A/P Problem List: (1) Congestive heart failure ICD Codes: I50.9 - Heart failure, unspecified Status: Acute Plan: Questionable etiology. Echo noted and troponins slightly elevated, but stable. Dr Chacon's assistance appreciated. Stress test large fixed defect suggests transmural infarct with EF 39% with systolic dysfunction with CHF lasix dose was decreased as cr was increased Patient also had episodes of sinus tach-started on metoprolol (2) Pulmonary edema ICD Codes: J81.1 - Chronic pulmonary edema Status: Acute Plan: As noted above. Questionable etiology. Doubt transfusion related given that her transfusion was over a week ago. Clinically much improved. Converted to oral lasix. Monitor K+. (3) Elevated troponin ICD Codes: R74.8 - Abnormal levels of other serum enzymes Status: Acute Plan: Possible demand mediated elevation. She appears to have poor R-wave progression and some possible Q-wave development and lateral leads. This appears new compared to most recent EKG done September 13. Stress test suggest transmural infarct (4) DM2 (diabetes mellitus, type 2) ICD Codes: E11.9 - Type 2 diabetes mellitus without complications Status: Chronic Plan: Provide sliding scale insulin with Accu-Cheks. Resume home insulin (5) Hypertension ICD Codes: I10 - Essential (primary) hypertension Status: Chronic Plan: We'll treat as blood pressure allows. Tolerating low dose BB. (6) Iron deficiency anemia ICD Codes: D50.9 - Iron deficiency anemia, unspecified Status: Chronic Plan: Hemoglobin stable with recent inpatient values. Continue to follow. Outpatient evaluation with hematology ongoing. Hesitant to give anticoag due to possible AVMs with possible small bowel source. Will use SCDs for dvt proph. Encouraged pt to wear and she agreed to be more compliant. Discharge Planning i will ask PT to evaluate consider transfer to rehab Wednesday Problem Qualifiers (1) Congestive heart failure: Qualified Codes: I50.9 - Heart failure, unspecified (2) Pulmonary edema: Qualified Codes: J81.0 - Acute pulmonary edema (3) DM2 (diabetes mellitus, type 2): (4) Hypertension: Qualified Codes: I10 - Essential (primary) hypertension Edwar Hughes MD Sep 18, 2017 10:14
[2017-09-18] MEDS ORDERED: LORazepam 0.5 MG TAB PO ONE (14:00)
[2017-09-18] MEDS: TEMAZEPAM 15 MG CAP PO PRN (20:55)
[2017-09-18] MEDS: INSULIN DETEMIR 100 UNITS/ML VIAL SQ SCH (20:59)
[2017-09-18] MEDS: LORazepam 0.5 MG TAB PO PRN (23:03)
[2017-09-19 00:39] VITALS: BP 142/75; PULSE 85; RESP 20; TEMP 97.6; O2SAT 93
[2017-09-19 04:19] VITALS: BP 132/71; PULSE 80; RESP 18; TEMP 97; O2SAT 95
[2017-09-19] MEDS: LORazepam 0.5 MG TAB PO PRN (06:03)
[2017-09-19 08:00] VITALS: BP 137/82; PULSE 86; PULSE 89; RESP 16; TEMP 96.1; O2SAT 95
[2017-09-19] MEDS: INSULIN ASPART SUPPLEMENTAL SCALE SQ SCH ×4 (08:00→20:26)
[2017-09-19] MEDS: PARoxetine HCL 20 MG TAB PO SCH (08:39)
[2017-09-19] MEDS: FUROSEMIDE 20 MG TAB PO SCH (08:39)
[2017-09-19] MEDS: METOPROLOL TARTRATE 25 MG TAB PO SCH ×2 (08:40→20:26)
[2017-09-19] MEDS: POTASSIUM CHLORIDE 10 MEQ CONTROLLED RELEASE TAB PO SCH (08:40)
[2017-09-19] MEDS: OXYBUTYNIN CHLORIDE 5 MG TAB PO SCH (08:40)
--- NOTE | 2017-09-19 10:08 | RADRPT ---
EXAM DATE/TIME: 09/19/2017 09:20 [facility] COMPARISON: CHEST PA & LAT, September 16, 2017, 5:28. INDICATIONS : Shortness of breath. MEDICAL HISTORY : Cardiovascular disease. Diabetes mellitus type 2. Carcinoma, breast SURGICAL HISTORY : Hysterectomy. CABG ENCOUNTER: Subsequent ACUITY: 1 day PAIN SCORE: 0/10 LOCATION: Bilateral chest FINDINGS: The heart size is borderline enlarged. The lungs there is a diffuse increased interstitial markings. The costophrenic angles are clear on the frontal view. There is increased density at the posterior co stophrenic angle on the lateral view. This likely is secondary small bilateral effusions. Old left ri b fractures are seen. CONCLUSION: Diffuse increased interstitial markings likely representing mild CHF. Parviz Ch MD on September 19, 2017 at 10:05 Board Certified Radiologist. This report was verified electronically.
--- NOTE | 2017-09-19 11:32 | HHI.PR ---
Subjective Remarks Patient with increasing SOB and some confusion,BNP increased and chest xray shows increase in CHF was decreased to lasix 20mg as cr increased to 1.4 but will have to give lasix IV today and as BP is stable will add low dose sharona . Discussion with son who is nurse patient does not want to go to rehab will arrange home health follow up and he will take some time off to stay with her. Objective Vitals GENERAL: SKIN: Warm and dry. HEAD: Atraumatic. Normocephalic. EYES: Pupils equal and round. No scleral icterus. No injection or drainage. ENT: No nasal bleeding or discharge. Mucous membranes pink and moist. NECK: Trachea midline. No JVD. CARDIOVASCULAR: Regular rate and rhythm. RESPIRATORY: No accessory muscle use. Clear to auscultation. Breath sounds decreased GASTROINTESTINAL: Abdomen soft, non-tender, nondistended. Hepatic and splenic margins not palpable. MUSCULOSKELETAL: Extremities without clubbing, cyanosis, or edema. No obvious deformities. NEUROLOGICAL: Awake and alert. No obvious cranial nerve deficits. Motor grossly within normal limits. Five out of 5 muscle strength in the arms and legs. Normal speech. PSYCHIATRIC: Appropriate mood and affect; insight and judgment normal. Vital Signs Date Time Temp Pulse Resp B/P (MAP) Pulse Ox O2 Delivery O2 Flow Rate FiO2 09/19/17 08:00 96.1 86 16 137/82 (100) 95 09/19/17 04:19 97.0 80 18 132/71 (91) 95 09/19/17 00:39 97.6 85 20 142/75 (97) 93 09/18/17 21:00 94 21 09/18/17 20:15 88 09/18/17 19:38 97.0 85 22 144/80 (101) 96 09/18/17 16:00 71 09/18/17 15:50 98.5 85 20 133/65 (87) 94 09/18/17 14:21 22 09/18/17 12:00 70 09/18/17 11:50 97.6 85 20 130/66 (87) 91 Result Diagram: 09/17/17 0445 09/18/17 0546 Imaging Last 72 hours Impressions Chest X-Ray 09/15/17 9925 Signed Impressions: Service Date/Time: Friday, September 15, 2017 04:20 - CONCLUSION: Cardiomegaly and interstitial opacities most characteristic of congestive heart failure. Jordy Myers MD CT Angiography 09/15/17 0000 Signed Impressions: Service Date/Time: Friday, September 15, 2017 06:10 - CONCLUSION: 1. No evidence of pulmonary embolism. 2. Small to moderate bilateral pleural effusions. 3. Patchy parenchymal infiltrate with small nodular areas in the right lung likely infectious or inflammatory. Followup CT is recommended after treatment. 4. There is consolidation in the posterior lung bases. Jordy Myers MD A/P Problem List: (1) Congestive heart failure ICD Codes: I50.9 - Heart failure, unspecified Status: Acute Plan: Questionable etiology. Echo noted and troponins slightly elevated, but stable. Dr Chacon's assistance appreciated. Stress test large fixed defect suggests transmural infarct with EF 39% with systolic dysfunction with CHF lasix dose was decreased as cr was increased Patient also had episodes of sinus tach-started on metoprolol Will add lasix 20mg IV bid for now hold po and add lisinopril 5 mg recheck labs am . Patient and son want to have no intubation should things worsen (2) Pulmonary edema ICD Codes: J81.1 - Chronic pulmonary edema Status: Acute Plan: As noted above. Questionable etiology possible related to remote infarct and does have systolic disfunction and moderate MR on echo. Doubt transfusion related given that her transfusion was over a week ago. hold po lasix change to IV 20 bid follow potassium (3) Elevated troponin ICD Codes: R74.8 - Abnormal levels of other serum enzymes Status: Acute Plan: Possible demand mediated elevation. She appears to have poor R-wave progression and some possible Q-wave development and lateral leads. This appears new compared to most recent EKG done September 13. Stress test suggest transmural infarct (4) DM2 (diabetes mellitus, type 2) ICD Codes: E11.9 - Type 2 diabetes mellitus without complications Status: Chronic Plan: Provide sliding scale insulin with Accu-Cheks. Resume home insulin (5) Hypertension ICD Codes: I10 - Essential (primary) hypertension Status: Chronic Plan: We'll treat as blood pressure allows. Tolerating low dose BB. (6) Iron deficiency anemia ICD Codes: D50.9 - Iron deficiency anemia, unspecified Status: Chronic Plan: Hemoglobin stable with recent inpatient values. Continue to follow. Outpatient evaluation with hematology ongoing. Hesitant to give anticoag due to possible AVMs with possible small bowel source. Will use SCDs for dvt proph. Encouraged pt to wear and she agreed to be more compliant. Assessment and Plan as above hold on rehab consider home health when stable PT at home as well will need walker Discharge Planning as above if stable and labs so some improvement discharge next week Problem Qualifiers (1) Congestive heart failure: Qualified Codes: I50.9 - Heart failure, unspecified (2) Pulmonary edema: Qualified Codes: J81.0 - Acute pulmonary edema (3) DM2 (diabetes mellitus, type 2): (4) Hypertension: Qualified Codes: I10 - Essential (primary) hypertension Edwar Hughes MD Sep 19, 2017 11:32
[2017-09-19] MEDS ORDERED: POTASSIUM CHLORIDE 8 MEQ CONTROLLED RELEASE TAB PO ONE (11:45)
[2017-09-19] MEDS ORDERED: FUROSEMIDE 20 MG/2 ML VIAL IV PUSH ONE (11:45)
--- NOTE | 2017-09-19 11:46 | HHI.FF ---
Face to Face Verification Diagnosis: (1) Congestive heart failure (2) Pulmonary edema Physical Therapy Order: Evaluate and Treat, Improve ambulation, Strength and gait training Occupational Therapy Order: Evaluate and Treat, Gross motor coordination Home Health Nursing Order: Medical education Signs/symptoms of disease process CHF education I have seen patient Haylee Altamirano on 09/19/17. My clinical findings support the need for the requested home health care services because: Patient has SOB Limited ability to care for self Impaired cognition/judgement I certify that my clinical findings support that this patient is homebound because: Impaired cognitive ability/safety Poor cardiac reserve Edwar Hughes MD Sep 19, 2017 11:46
[2017-09-19 12:00] VITALS: BP 144/85; PULSE 83; RESP 16; TEMP 96.5; O2SAT 97
--- NOTE | 2017-09-19 15:18 | RADRPT ---
EXAM DATE/TIME: 09/19/2017 15:08 [facility] COMPARISON: No previous studies available for comparison. INDICATIONS : Altered mental status. RADIATION DOSE: 56.49 CTDIvol (mGy) MEDICAL HISTORY : Hypertension. Gastroesophageal reflux disease. Ulcerative colitis. SURGICAL HISTORY : Abdominal aortic aneurysm repair. Right femoral stent. ENCOUNTER: Initial ACUITY: 1 day PAIN SCALE: 0/10 LOCATION: cranial TECHNIQUE: Multiple contiguous axial images were obtained of the head. Using automated exposure control and adj ustment of the mA and/or kV according to patient size, radiation dose was kept as low as reasonably a chievable to obtain optimal diagnostic quality images. DICOM format image data is available electro nically for review and comparison. FINDINGS: CEREBRUM: The ventricles are mildly prominent for age. There is diffuse bilateral cortical atrophy. There is mo derate bilateral chronic white matter changes. No evidence of midline shift, mass lesion, hemorrhage or acute infarction. No extra-axial fluid collections are seen. POSTERIOR FOSSA: The cerebellum and brainstem are intact. The 4th ventricle is midline. The cerebellopontine angle i s unremarkable. EXTRACRANIAL: The visualized portion of the orbits is intact. SKULL: The calvaria is intact. No evidence of skull fracture. CONCLUSION: 1. No focal or acute intracranial hemorrhage. 2. Bilateral cortical atrophy and chronic white matter changes characteristic for patient's age. Major Love MD on September 19, 2017 at 15:15 Board Certified Radiologist. This report was verified electronically.
[2017-09-19 16:00] VITALS: BP 136/83; PULSE 80; RESP 14; TEMP 95.8; O2SAT 94
[2017-09-19] MEDS: FUROSEMIDE 20 MG/2 ML VIAL IV PUSH SCH (18:08)
[2017-09-19 20:00] VITALS: BP 158/70; PULSE 78; PULSE 83; RESP 16; TEMP 98.6; O2SAT 95; O2SAT 97
[2017-09-19] MEDS: POTASSIUM CHLORIDE 8 MEQ CONTROLLED RELEASE TAB PO SCH (20:26)
[2017-09-19] MEDS: TEMAZEPAM 15 MG CAP PO PRN (20:26)
[2017-09-19] MEDS: INSULIN DETEMIR 100 UNITS/ML VIAL SQ SCH (20:26)
[2017-09-20] VITALS: BP 141/66; PULSE 75; RESP 17; TEMP 98.2; O2SAT 96
[2017-09-20] MEDS: LORazepam 0.5 MG TAB PO PRN ×2 (02:12→13:25)
[2017-09-20 04:00] VITALS: BP 153/73; PULSE 77; RESP 18; TEMP 98; O2SAT 96
[2017-09-20 06:04] LABS: HEMATOCRIT 29.4 % (35.0-46.0); HEMOGLOBIN 8.8 GM/DL (11.6-15.3); MEAN CELL VOLUME 80.8 FL (80.0-100.0); MEAN CORPUSCULAR HEMOGLOBIN 24.2 PG (27.0-34.0); MEAN PLATELET VOLUME 13.6 FL (7.0-11.0); PLATELET COUNT 220 TH/MM3 (150-450); RED BLOOD COUNT 3.64 MIL/MM3 (4.00-5.30); RED CELL DISTRIBUTION WIDTH 34.5 % (11.6-17.2); WHITE BLOOD COUNT 11.3 TH/MM3 (4.0-11.0)
[2017-09-20 06:08] LABS: MEAN CORPUSCULAR HGB CONC 29.9 % (32.0-36.0)
[2017-09-20 06:18] LABS: BICARBONATE 23.8 MEQ/L (21.0-32.0)
[2017-09-20 06:27] LABS: CORRECTED NUCLEATED RBC 2 /100 WBC (0-0); LYMPHOCYTES 14 % (9-44); MONOCYTES 6 % (0-8); NEUTROPHIL # MANUAL DIFF 8.9 TH/MM3 (1.8-7.7); NUCLEATED RED BLOOD CELL 2 (0-0); POLYS (SEG NEUTROPHILS) 79 % (16-70)
[2017-09-20 06:28] LABS: KERATOCYTES OCC (NORMAL); OVALOCYTES 1+ (NORMAL); TARGET CELLS 2+ (NORMAL)
[2017-09-20 07:10] LABS: CREATININE 1.1 MG/DL (0.50-1.00)
[2017-09-20] MEDS ORDERED: DEXTROSE 50% IN WATER 50 ML SYRINGE ONE (07:36)
[2017-09-20 08:00] VITALS: BP 125/72; PULSE 70; RESP 14; TEMP 96.9; O2SAT 96
[2017-09-20] MEDS: INSULIN ASPART SUPPLEMENTAL SCALE SQ SCH ×4 (08:00→20:40)
[2017-09-20] MEDS: FUROSEMIDE 20 MG TAB PO SCH (09:55)
[2017-09-20] MEDS: METOPROLOL TARTRATE 25 MG TAB PO SCH ×2 (09:55→22:04)
[2017-09-20] MEDS: POTASSIUM CHLORIDE 8 MEQ CONTROLLED RELEASE TAB PO SCH ×2 (09:55→22:04)
[2017-09-20] MEDS: FUROSEMIDE 20 MG/2 ML VIAL IV PUSH SCH ×2 (09:55→18:01)
[2017-09-20] MEDS: PARoxetine HCL 20 MG TAB PO SCH (09:55)
[2017-09-20] MEDS: OXYBUTYNIN CHLORIDE 5 MG TAB PO SCH (09:55)
[2017-09-20] MEDS: LISINOPRIL 5 MG TAB PO SCH (09:55)
[2017-09-20] MEDS: POTASSIUM CHLORIDE 10 MEQ CONTROLLED RELEASE TAB PO SCH (09:56)
--- NOTE | 2017-09-20 10:41 | HHI.PR ---
Subjective Remarks Patient states she is feeling better breathing better,BNP remains elevated but cr is stable will continue Lasix 20mg iv BID for today ,discussed with son plan is to discharge home with home health ,he will take off to help care for her eating about 20% of her food and blood glucose this am was low given fluid and nurse helped patient eat and glucose back up. Objective Vitals GENERAL: SKIN: Warm and dry. HEAD: Atraumatic. Normocephalic. EYES: Pupils equal and round. No scleral icterus. No injection or drainage. ENT: No nasal bleeding or discharge. Mucous membranes pink and moist. NECK: Trachea midline. No JVD. CARDIOVASCULAR: Regular rate and rhythm. RESPIRATORY: No accessory muscle use. Clear to auscultation. Breath sounds decreased bilateral GASTROINTESTINAL: Abdomen soft, non-tender, nondistended. Hepatic and splenic margins not palpable. MUSCULOSKELETAL: Extremities without clubbing, cyanosis, or edema. No obvious deformities. NEUROLOGICAL: Awake and alert. No obvious cranial nerve deficits. Motor grossly within normal limits. Five out of 5 muscle strength in the arms and legs. Normal speech. PSYCHIATRIC: Appropriate mood and affect; insight and judgment normal. Vital Signs Date Time Temp Pulse Resp B/P (MAP) Pulse Ox O2 Delivery O2 Flow Rate FiO2 09/20/17 08:00 96.9 70 14 125/72 (89) 96 09/20/17 04:00 98.0 77 18 153/73 (99) 96 09/20/17 00:00 98.2 75 17 141/66 (91) 96 09/19/17 20:00 98.6 78 16 158/70 (99) 95 09/19/17 20:00 83 09/19/17 20:00 97 21 09/19/17 16:00 95.8 80 14 136/83 (100) 94 09/19/17 12:00 96.5 83 16 144/85 (104) 97 Result Diagram: 09/20/17 0445 09/20/17 0445 Imaging Last 72 hours Impressions Chest X-Ray 09/15/17 0410 Signed Impressions: Service Date/Time: Friday, September 15, 2017 04:20 - CONCLUSION: Cardiomegaly and interstitial opacities most characteristic of congestive heart failure. Jordy Myers MD CT Angiography 09/15/17 0000 Signed Impressions: Service Date/Time: Friday, September 15, 2017 06:10 - CONCLUSION: 1. No evidence of pulmonary embolism. 2. Small to moderate bilateral pleural effusions. 3. Patchy parenchymal infiltrate with small nodular areas in the right lung likely infectious or inflammatory. Followup CT is recommended after treatment. 4. There is consolidation in the posterior lung bases. Jordy Myers MD A/P Problem List: (1) Congestive heart failure ICD Codes: I50.9 - Heart failure, unspecified Status: Acute Plan: Questionable etiology. Echo noted and troponins slightly elevated, but stable. Dr Chacon's assistance appreciated. Stress test large fixed defect suggests transmural infarct with EF 39% with systolic dysfunction with CHF lasix dose was decreased as cr was increased Patient also had episodes of sinus tach-started on metoprolol Will add lasix 20mg IV bid for now hold po and add lisinopril 5 mg recheck labs am . Patient and son want to have no intubation should things worsen Patient bnp remains elevated will continue iv lasix today plan to discharge home with home health for daily visit and possibly continue IV lasix at home. (2) Pulmonary edema ICD Codes: J81.1 - Chronic pulmonary edema Status: Acute Plan: As noted above. Questionable etiology possible related to remote infarct and does have systolic disfunction and moderate MR on echo. Doubt transfusion related given that her transfusion was over a week ago. hold po lasix change to IV 20 bid follow potassium (3) Elevated troponin ICD Codes: R74.8 - Abnormal levels of other serum enzymes Status: Acute Plan: Possible demand mediated elevation. She appears to have poor R-wave progression and some possible Q-wave development and lateral leads. This appears new compared to most recent EKG done September 13. Stress test suggest transmural infarct (4) DM2 (diabetes mellitus, type 2) ICD Codes: E11.9 - Type 2 diabetes mellitus without complications Status: Chronic Plan: Provide sliding scale insulin with Accu-Cheks. Resume home insulin (5) Hypertension ICD Codes: I10 - Essential (primary) hypertension Status: Chronic Plan: We'll treat as blood pressure allows. Tolerating low dose BB. have added low dose sharona (6) Iron deficiency anemia ICD Codes: D50.9 - Iron deficiency anemia, unspecified Status: Chronic Plan: Hemoglobin stable with recent inpatient values. Continue to follow. Outpatient evaluation with hematology ongoing. Hesitant to give anticoag due to possible AVMs with possible small bowel source. Will use SCDs for dvt proph. Encouraged pt to wear and she agreed to be more compliant. Assessment and Plan as above hold on rehab consider home health when stable PT at home as well will need walker Discharge Planning as above if stable and labs so some improvement discharge next week Problem Qualifiers (1) Congestive heart failure: Qualified Codes: I50.9 - Heart failure, unspecified (2) Pulmonary edema: Qualified Codes: J81.0 - Acute pulmonary edema (3) DM2 (diabetes mellitus, type 2): (4) Hypertension: Qualified Codes: I10 - Essential (primary) hypertension Edwar Hughes MD Sep 20, 2017 10:41
[2017-09-20 12:00] VITALS: BP 125/70; PULSE 74; RESP 14; TEMP 96.1; O2SAT 95
[2017-09-20 16:00] VITALS: BP 149/82; PULSE 76; RESP 14; TEMP 96.2; O2SAT 94
[2017-09-20] MEDS: INSULIN DETEMIR 100 UNITS/ML VIAL SQ SCH (19:57)
[2017-09-20 20:00] VITALS: BP 139/63; PULSE 77; RESP 18; TEMP 96.5; O2SAT 94
[2017-09-21] VITALS: BP 124/60; PULSE 71; RESP 18; TEMP 97.7; O2SAT 97
[2017-09-21 04:00] VITALS: BP 144/68; PULSE 73; RESP 18; TEMP 97; O2SAT 93
[2017-09-21 07:19] LABS: BICARBONATE 26.3 MEQ/L (21.0-32.0); CALCIUM 8.6 MG/DL (8.5-10.1)
[2017-09-21 07:31] LABS: CREATININE 0.94 MG/DL (0.50-1.00)
[2017-09-21 08:00] VITALS: BP 174/77; PULSE 72; PULSE 77; RESP 16; TEMP 98.3; O2SAT 94
[2017-09-21] MEDS: OXYBUTYNIN CHLORIDE 5 MG TAB PO SCH (08:29)
[2017-09-21] MEDS: LISINOPRIL 5 MG TAB PO SCH (08:29)
[2017-09-21] MEDS: PARoxetine HCL 20 MG TAB PO SCH (08:29)
[2017-09-21] MEDS: POTASSIUM CHLORIDE 8 MEQ CONTROLLED RELEASE TAB PO SCH (08:29)
[2017-09-21] MEDS: POTASSIUM CHLORIDE 10 MEQ CONTROLLED RELEASE TAB PO SCH (08:29)
[2017-09-21] MEDS: FUROSEMIDE 20 MG TAB PO SCH (08:29)
[2017-09-21] MEDS: METOPROLOL TARTRATE 25 MG TAB PO SCH (08:29)
[2017-09-21] MEDS: FUROSEMIDE 20 MG/2 ML VIAL IV PUSH SCH (08:29)
[2017-09-21] MEDS: INSULIN ASPART SUPPLEMENTAL SCALE SQ SCH ×2 (08:30→12:37)
[2017-09-21] MEDS ORDERED: FURO20TA PO (10:34)
[2017-09-21] MEDS ORDERED: Furosemide IV PUSH (10:34)
[2017-09-21] MEDS ORDERED: LORA-392 PO (10:34)
[2017-09-21] MEDS ORDERED: KLOR10TA PO (10:34)
[2017-09-21] MEDS ORDERED: LISI-519 PO (10:36)
--- NOTE | 2017-09-21 10:47 | HHI.DS ---
Discharge Summary Admission Date Sep 15, 2017 at 05:59 Discharge Date: Sep 21, 2017 Admitting Diagnosis pulmonary edema, CHF, elevated troponin, lactic acidosis (1) Congestive heart failure Diagnosis: Principal ICD Codes: I50.9 - Heart failure, unspecified Status: Acute (2) Pulmonary edema Diagnosis: Principal ICD Codes: J81.1 - Chronic pulmonary edema Status: Acute (3) Elevated troponin Diagnosis: Secondary ICD Codes: R74.8 - Abnormal levels of other serum enzymes Status: Acute (4) DM2 (diabetes mellitus, type 2) Diagnosis: Secondary ICD Codes: E11.9 - Type 2 diabetes mellitus without complications Status: Chronic (5) Hypertension Diagnosis: Secondary ICD Codes: I10 - Essential (primary) hypertension Status: Chronic (6) Iron deficiency anemia Diagnosis: Secondary ICD Codes: D50.9 - Iron deficiency anemia, unspecified Status: Chronic [facility] cardiology Brief History The patient is a 77-year-old female well known to me from recent admission and discharge home actually yesterday who presents to the emergency department for shortness of breath. The patient was recently hospitalized for severe anemia with hemoglobin just greater than 4, was transfused 2 units of red cells over a week ago, subsequently discharged home yesterday after GI workup and hematology evaluation. As noted she was discharged home yesterday and was actually doing quite well at home until around 3 AM this morning. He noted that she began to have a dry cough and then became more and more short of breath to the point that she needed emergent evaluation. This is confirmed with her son events who is a nurse. Her shortness of breath started approximately 1 hour prior to her arrival in the ER. The patient was noted to be hypoxic in triage and brought emergently into the emergency department. She denies chest pain. She denies any productive cough, chest pain, nausea, vomiting, fever or abdominal pain. She denies any history of COPD, CHF, or pulmonary embolism. Also denies any history of coronary artery disease and this is confirmed with her son as well. Chest x-ray revealed pulmonary edema and she was placed on BiPAP as well as IV Lasix in the ER. She has had good results with these interventions and is currently stable on my exam. It is noted that she is occasionally tachyarrhythmia with a heart rate up into the 1 4150 range. Heart rate currently is in the 90s. She denies any chest pain and says she feels remarkably better regarding her shortness of breath. CTA of chest negative for pulmonary embolus but noted for lower lung consolidation and effusions. Initial lab evaluation noted for a white count of 13,000 and a stable hemoglobin around 8 mass. BNP is greater than 3000. LFTs have actually improved somewhat and renal indices are stable with recent inpatient values. Interestingly her lactic acid elevated at 6.9. CBC/BMP: 09/20/17 0445 09/21/17 0603 Significant Findings Laboratory Tests Test 09/19/17 06:56 09/20/17 04:45 09/21/17 06:03 B-Type Natriuretic Peptide 4691 PG/ML (0-100) 4881 PG/ML (0-100) 3441 PG/ML (0-100) White Blood Count 11.3 TH/MM3 (4.0-11.0) Red Blood Count 3.64 MIL/MM3 (4.00-5.30) Hemoglobin 8.8 GM/DL (11.6-15.3) Hematocrit 29.4 % (35.0-46.0) Mean Corpuscular Hemoglobin 24.2 PG (27.0-34.0) Mean Corpuscular Hemoglobin Concent 29.9 % (32.0-36.0) Red Cell Distribution Width 34.5 % (11.6-17.2) Mean Platelet Volume 13.6 FL (7.0-11.0) Neutrophils % (Manual) 79 % (16-70) Neutrophils # (Manual) 8.9 TH/MM3 (1.8-7.7) Nucleated Red Blood Cells 2 /100 WBC (0-0) Target Cells 2+ (NORMAL) Ovalocytes 1+ (NORMAL) Keratocytes OCC (NORMAL) Blood Urea Nitrogen 34 MG/DL (7-18) 26 MG/DL (7-18) Creatinine 1.10 MG/DL (0.50-1.00) Random Glucose 46 MG/DL (74-106) 197 MG/DL (74-106) Estimat Glomerular Filtration Rate 48 ML/MIN (>89) 58 ML/MIN (>89) Potassium Level 3.3 MEQ/L (3.5-5.1) PE at Discharge GENERAL: SKIN: Warm and dry. HEAD: Atraumatic. Normocephalic. EYES: Pupils equal and round. No scleral icterus. No injection or drainage. ENT: No nasal bleeding or discharge. Mucous membranes pink and moist. NECK: Trachea midline. No JVD. CARDIOVASCULAR: Regular rate and rhythm. RESPIRATORY: No accessory muscle use. Clear to auscultation. Breath sounds decreased but improved GASTROINTESTINAL: Abdomen soft, non-tender, nondistended. Hepatic and splenic margins not palpable. MUSCULOSKELETAL: Extremities without clubbing, cyanosis, or edema. No obvious deformities. NEUROLOGICAL: Awake and alert. No obvious cranial nerve deficits. Motor grossly within normal limits. Five out of 5 muscle strength in the arms and legs. Normal speech. PSYCHIATRIC: Appropriate mood and affect; insight and judgment normal. Hospital Course Patient was admitted with CHF and pulmonary edema required IV lasix and po lasix and did have chest xray consistent with chf 2d echo consistent with dysfunction and had vale scan consistent with prior infarct and if improves with strength will need cath family aware. Patient im[proved in ability to ambulate with PT and will have walker also will continue with home health lasix 20mg IV daily for 2 days then change to po lasix 20 daily will need follow up labs 2 days bmp and bnp also has anemia and will need vitamin supplements . Patient son requested DNR status also CT head was done consistent with mild dementia. Patient did not want to go to rehab center and we have home health to follow patient . Patient son who is nurse will take some time off to care for patient. Pt Condition on Discharge: Fair Discharge Disposition: Disch w/ Home Health Serv Discharge Instructions DIET: Follow Instructions for: Heart Healthy Diet Activities you can perform: Regular-No Restrictions Other Activity Instructions: use walker for ambulation New Medications: Furosemide (Furosemide) 20 Mg Tab 20 MG PO DAILY for chf MDD 20, #10 TAB Lorazepam (Ativan) 0.5 Mg Tab 0.5 MG PO Q8H PRN for anxiety for 10 Days, #30 TAB Potassium Chloride ER (Klor-Con 10) 10 Meq Tab 30 MEQ PO DAILY for chf MDD 30 for 10 Days, #30 TAB [Furosemide] () 10 MG/ML INJ 20 MG IV PUSH DAILY for chf for 2 Days, #2 INJECTION Continued Medications: Cholecalciferol (Vitamin D-1000) 1,000 Unit Tab 5000 UNITS PO DAILY for Nutritional Supplement, #1 BOTTLE 0 Refills Glipizide (Glipizide) 10 Mg Tab 10 MG PO BIDAC for Blood Sugar Management, #60 TAB 0 Refills Take 30 minutes before a meal Hydrocodone-Acetaminophen (Hydrocodone-Acetaminophen) 7.5 Mg-325 Mg Tab 1 TAB PO Q4H PRN for PAIN, TAB 0 Refills Insulin Detemir Inj (Levemir Inj) 1,000 unit/ 10 ML Vial 8 UNITS SQ HS for Blood Sugar Management, VIAL 0 Refills Do not mix with any other Insulin. Lisinopril (Lisinopril) 5 Mg Tab 5 MG PO HS for Blood Pressure Management for 10 Days, #30 TAB 0 Refills (This prescription has been renewed) Oxybutynin (Ditropan) 5 Mg Tab 5 MG PO DAILY for Urinary Symptom Managemen, #60 TAB 0 Refills Paroxetine (Paroxetine) 20 Mg Tab 20 MG PO DAILY, #30 TAB 0 Refills Tamoxifen (Tamoxifen) 10 Mg Tab 5 MG PO BID for Chemotherapy Management, #60 TAB 0 Refills Discontinued Medications: Metformin (Metformin) 500 Mg Tab 500 MG PO BIDPC for Blood Sugar Management, #60 TAB 0 Refills Edwar Hughes MD Sep 21, 2017 10:47
[2017-09-21 12:00] VITALS: BP 124/61; PULSE 68; RESP 16; TEMP 99.1; O2SAT 95
== END 2017-09-21 14:04 | disposition home health service (06) | DRG 293 ==
LOC: PHED 04:01 → PHEDA 05:59 → PHICU 10:15 → PH3B 09-18 09:05
PROVIDERS: ADMIT Family Medicine; ATTEND Family Medicine
PROC: 5A09357 Assistance with Respiratory Ventilation, Less than 24 Consecutive Hours, Continuous Positive Airway Pressure (ICD-10-PCS; principal; 2017-09-15)
DX: I11.0 Hypertensive heart disease with heart failure (principal); I50.21 Acute systolic (congestive) heart failure; I42.9 Cardiomyopathy, unspecified; F03.90 Unspecified dementia, unspecified severity, without behavioral disturbance, psychotic disturbance, mood disturbance, and anxiety; E11.21 Type 2 diabetes mellitus with diabetic nephropathy; E11.51 Type 2 diabetes mellitus with diabetic peripheral angiopathy without gangrene; Z79.4 Long term (current) use of insulin; Z79.84 Long term (current) use of oral hypoglycemic drugs; D50.9 Iron deficiency anemia, unspecified; I78.0 Hereditary hemorrhagic telangiectasia; I27.20 Pulmonary hypertension, unspecified; I07.1 Rheumatic tricuspid insufficiency; F17.210 Nicotine dependence, cigarettes, uncomplicated; E78.5 Hyperlipidemia, unspecified; I25.2 Old myocardial infarction; M79.7 Fibromyalgia; M81.0 Age-related osteoporosis without current pathological fracture; Z66 Do not resuscitate; F41.9 Anxiety disorder, unspecified; F32.9 Major depressive disorder, single episode, unspecified; Z88.6 Allergy status to analgesic agent; Z85.3 Personal history of malignant neoplasm of breast; Z79.810 Long term (current) use of selective estrogen receptor modulators (SERMs)
CPT/HCPCS: 70450; 71045; 71046; 71275; 78452; 80048; 80053; 82140; 82550; 82948; 83605; 83735; 83880; 84484; 85007; 85027; 85610; 85730; 87040; 93005; 93017; 93306; 94002; 94664; 99291; A9502; J0456; J1815; J1940; J2543; J2785; J2920; J7050; Q9967

== ENCOUNTER 2017-10-30 21:11 | Inpatient (IN) | payer MEDICARE ==
[~2017-10-30] VITALS: Ht 157.5 cm; Wt 55.8 kg
[~2017-10-30 21:11] MED LIST changes: +FURO20TA PO; +Furosemide IV PUSH; +KLOR10TA PO; +LORA-392 PO; -METF500T PO
[2017-10-30 21:19] VITALS: BP 121/59; PULSE 118; RESP 20; TEMP 99.9; O2SAT 99
[2017-10-30] MEDS ORDERED: FURO40TA PO (22:02)
[2017-10-30 22:30] VITALS: O2SAT 92
[2017-10-30] MEDS ORDERED: SODIUM CHLORIDE 0.9% FLUSH 10 ML FLUSH IVF PRN (22:30)
--- NOTE | 2017-10-30 22:36 | PD ---
HPI Chief Complaint: Respiratory Symptoms Time Seen by Provider: 22:28 Travel History International Travel<30 days: No Contact w/Intl Traveler<30days: No Traveled to known affect area: No History of Present Illness HPI 77-year-old female presents to the emergency department by private transportation the care of her son who is her power of assistant prosecuting attorney for evaluation of worsening shortness of breath over the past 48 hours. Patient has had some increased shortness of breath and lower extremity swelling over the past week and son has increased her daily Lasix from 20 mg daily to 40 mg daily. Patient is also developed some orthopnea and dyspnea on exertion and this evening is noticed dyspnea at rest. No reported complaint of chest pain no report of hemoptysis or nausea or vomiting or diarrhea or complain of abdominal pain. 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 Patient had no febrile illness or productive cough. Patient has been admitted twice in August due to anemia and flash pulmonary edema and small subendocardial myocardial infarction. EF was 39%; nuclear stress test done September 17 shows large apical and inferior segment fixed defect with wall motion defect EF 39% intermediate annual 1-3% mortality risk. Patient did require transfusion during hospitalization. No report of epistaxis or gum bleeding hematemesis coffee-ground emesis melena hematochezia or hematuria. Patient recently has run very low blood pressures and primary care provider Dr. Gomez discontinue her lisinopril and hypertensive. Patient's files supervisor is Dr. Chacon. [facility] Past Medical History Anemia: Yes Arthritis: Yes Blood Disorders: Yes (HEREDITARY HEMOGIOTELASITIA) Anxiety: Yes Depression: No Heart Rhythm Problems: No Cancer: Yes (LEFT BREAST) Cardiovascular Problems: Yes (CHF) High Cholesterol: Yes Chemotherapy: Yes Chest Pain: No Congestive Heart Failure: No Diabetes: Yes Patient Takes Glucophage: No Diminished Hearing: No Endocrine: Yes Gastrointestinal Disorders: Yes (HX ULCERATIVE COLITIS ; IBS, GERD) GERD: No Genitourinary: No Headaches: Yes (OCCASIONAL HEADACHE) Hepatitis: No Hiatal Hernia: No Heparin Induced Thrombocytopen: No Hypertension: Yes Immune Disorder: No Implanted Vascular Access Dvce: No Musculoskeletal: Yes ( SEVERE ARTHRITIS, FIBROMYALGIA) Neurologic: No Psychiatric: Yes (ANXIETY) Reproductive: No Respiratory: No Immunizations Current: Yes Myocardial Infarction: No Radiation Therapy: No Sickle Cell Disease: Yes Thyroid Disease: No Ulcer: No Tetanus Vaccination: < 5 Years Influenza Vaccination: Yes : 3 Para: 2 Miscarriage: 1 Past Surgical History Abdominal Surgery: No AICD: No Appendectomy: Yes Body Medical Devices: FEMORAL STENT RIGHT ; AAA STENT Cardiac Surgery: Yes (02/01 ENDOVASCULAR AAA) Ear Surgery: No Endocrine Surgery: No Eye Surgery: Yes (LEFT CATARACT EXTRACT) Genitourinary Surgery: No Gynecologic Surgery: Yes (HYSTERECTOMY) Hysterectomy: Yes (1979) Joint Replacement: No Neurologic Surgery: No Oral Surgery: Yes (TONSILLECTOMY) Pacemaker: No Thoracic Surgery: No Other Surgery: Yes (HEMRRHOIDECTOMY ) Social History Alcohol Use: No Tobacco Use: No Substance Use: No Allergies-Medications (Allergen,Severity, Reaction): Coded Allergies: aspirin (Unverified Adverse Reaction, Severe, GI BLEEDING, 10/30/17) diclofenac (Unverified Adverse Reaction, Severe, GI BLEED, 10/30/17) duloxetine (Unverified Adverse Reaction, Severe, SUICIDAL THOUGHTS, 10/30/17 ) etodolac (Unverified Adverse Reaction, Severe, GI BLEED, 10/30/17) flurbiprofen (Unverified Adverse Reaction, Severe, GI BLEED, 10/30/17) ibuprofen (Unverified Adverse Reaction, Severe, GI BLEED, 10/30/17) indomethacin (Unverified Adverse Reaction, Severe, GI BLEED, 10/30/17) ketoprofen (Unverified Adverse Reaction, Severe, GI BLEED, 10/30/17) ketorolac (Unverified Adverse Reaction, Severe, GI BLEED, 10/30/17) naproxen (Unverified Adverse Reaction, Severe, GI BLEED, 10/30/17) oxaprozin (Unverified Adverse Reaction, Severe, GI BLEED, 10/30/17) Reported Meds & Prescriptions Reported Meds & Active Scripts Active Klor-Con 10 (Potassium Chloride) 10 Meq Tab 30 Meq PO DAILY MDD 30 10 Days Ativan (Lorazepam) 0.5 Mg Tab 0.5 Mg PO Q8H PRN 10 Days Vitamin D-1000 (Cholecalciferol) 1,000 Unit Tab 5,000 Units PO DAILY Reported Furosemide 40 Mg Tab 40 Mg PO DAILY Hydrocodone-Acetaminophen 7.5 Mg-325 Mg Tab 1 Tab PO Q4H PRN Levemir Inj (Insulin Detemir) 1,000 unit/ 10 ML Vial 20 Units SQ HS Do not mix with any other Insulin. Tamoxifen (Tamoxifen Citrate) 10 Mg Tab 5 Mg PO BID Glipizide 10 Mg Tab 10 Mg PO BIDAC Take 30 minutes before a meal Paroxetine (Paroxetine HCl) 20 Mg Tab 20 Mg PO DAILY Review of Systems Except as stated in HPI: all other systems reviewed are Neg Physical Exam Narrative GENERAL: Elderly female with mild respiratory distress with pallor; room air O2 saturation 91-94% SKIN: Warm and dry. HEAD: Normocephalic. EYES: No scleral icterus. No injection or drainage. NECK: Supple, trachea midline. No JVD or lymphadenopathy. CARDIOVASCULAR: Increased regular rate and rhythm without murmurs, gallops, or rubs. RESPIRATORY: Breath sounds equal bilaterally left greater than right rales. No accessory muscle use. GASTROINTESTINAL: Abdomen soft, non-tender, nondistended. MUSCULOSKELETAL: No cyanosis, 1-2+ bilateral lower leg pitting edema. Dorsalis pedis pulses 2+ to palpation BACK: Nontender without obvious deformity. No CVA tenderness. Data Data Last Documented VS Vital Signs Date Time Temp Pulse Resp B/P (MAP) Pulse Ox O2 Delivery O2 Flow Rate FiO2 10/31/17 00:30 98.3 103 16 125/69 (87) 97 Nasal Cannula 2.00 Orders Orders Complete Blood Count With Diff (10/30/17 22:28) Comprehensive Metabolic Panel (10/30/17 22:28) B-Type Natriuretic Peptide (10/30/17 22:28) Act Partial Throm Time (Ptt) (10/30/17 22:28) Prothrombin Time / Inr (Pt) (10/30/17 22:28) Magnesium (Mg) (10/30/17 22:28) Ckmb (Isoenzyme) Profile (10/30/17 22:28) Troponin I (10/30/17 22:28) Iv Access Insert/Monitor (10/30/17 22:28) Electrocardiogram (10/30/17 22:28) Ecg Monitoring (10/30/17 22:28) Oximetry (10/30/17 22:28) Oxygen Administration (10/30/17 22:28) Chest, Pa & Lat (10/30/17 22:28) Sodium Chloride 0.9% Flush (Ns Flush) (10/30/17 22:30) Type And Screen (10/30/17 22:28) Furosemide Inj (Lasix Inj) (10/30/17 22:45) Urinalysis - C+S If Indicated (10/30/17 22:39) Red Blood Cells (Rbc) (10/30/17 23:40) Blood Product Administration (10/30/17 23:40) Sodium Chlor 0.9% 250 Ml Inj (Ns 250 Ml (10/30/17 23:45) Resp Request For Service (10/30/17 ) Blood Gas Venous (Vbg) (10/30/17 23:55) Urinary Catheter Insert/Apply (10/31/17 00:15) Admit Order (Ed Use Only) (10/31/17 ) Metal Container Maker / Telemetry CATRACHITO.Q8H (10/31/17 00:46) Diet Heart Healthy (10/31/17 Breakfast) Activity Bed Rest (10/31/17 00:46) Notify Dr: Other (10/31/17 00:46) Labs Laboratory Tests Test 10/30/17 22:30 10/30/17 23:55 10/30/17 23:57 10/31/17 00:13 Prothrombin Time 12.8 SEC Prothromb Time International Ratio 1.3 RATIO Activated Partial Thromboplast Time 26.8 SEC Blood Urea Nitrogen 23 MG/DL Creatinine 0.94 MG/DL Random Glucose 240 MG/DL Total Protein 7.5 GM/DL Albumin 2.1 GM/DL Calcium Level 8.4 MG/DL Magnesium Level 1.9 MG/DL Alkaline Phosphatase 412 U/L Aspartate Amino Transf (AST/SGOT) 44 U/L Alanine Aminotransferase (ALT/SGPT) 61 U/L Total Bilirubin 1.0 MG/DL Sodium Level 136 MEQ/L Potassium Level 3.4 MEQ/L Chloride Level 104 MEQ/L Carbon Dioxide Level 22.4 MEQ/L Anion Gap 10 MEQ/L Estimat Glomerular Filtration Rate 58 ML/MIN Total Creatine Kinase 38 U/L Troponin I 0.05 NG/ML B-Type Natriuretic Peptide 2562 PG/ML Blood Gas Puncture Site IV Blood Gas Patient Temperature 98.6 Venous Blood pH 7.43 Venous Blood Partial Pressure CO2 36 mmHg Venous Blood Partial Pressure O2 17 mmHg Venous Blood HCO3 24 mmol/L Venous Blood Oxygen Saturation 13 % Venous Blood Oxygen Content 0.9 Vol % Venous Blood Base Excess -0.2 mmol/L Oxygen Delivery Device ROOM AIR Blood Gas Inspired Oxygen 21 % White Blood Count 11.9 TH/MM3 Red Blood Count 1.92 MIL/MM3 Hemoglobin 4.6 GM/DL Hematocrit 15.7 % Mean Corpuscular Volume 81.9 FL Mean Corpuscular Hemoglobin 24.1 PG Mean Corpuscular Hemoglobin Concent 29.5 % Red Cell Distribution Width 25.4 % Platelet Count 283 TH/MM3 Mean Platelet Volume 10.9 FL CBC Comment AUTO DIFF Urine Color YELLOW Urine Turbidity CLEAR Urine pH 5.5 Urine Specific Wells 1.015 Urine Protein NEG mg/dL Urine Glucose (UA) NEG mg/dL Urine Ketones NEG mg/dL Urine Occult Blood NEG Urine Nitrite NEG Urine Bilirubin NEG Urine Urobilinogen 0.2 MG/DL Urine Leukocyte Esterase NEG Urine RBC 0-3 /hpf Urine WBC 0-2 /hpf Urine Squamous Epithelial Cells 0-5 /hpf Microscopic Urinalysis Comment CULT NOT INDICATED MDM Medical Decision Making Medical Screen Exam Complete: Yes Emergency Medical Condition: Yes Medical Record Reviewed: Yes Interpretation(s) EKG sinus tachycardia rate [address] elevation injury pattern rare PVC QS inferiorly noted in lead III and aVF with poor R-wave progression anteriorly consistent with old anterior PR Last Impressions Chest X-Ray 10/30/172227 Signed Impressions: Service Date/Time: Monday, October 30, 2017 22:32 - CONCLUSION: 1. Diffuse increased interstitial markings likely related to underlying interstitial process such as edema. 2. Further alveolar edema or consolidation in the right upper lung. 3. Cardiomegaly. 4. Mild left pleural effusion. Parviz Ch MD Vital Signs Date Time Temp Pulse Resp B/P (MAP) Pulse Ox O2 Delivery O2 Flow Rate FiO2 10/30/17 22:30 92 Room Air 10/30/17 22:30 92 Room Air 10/30/17 21:19 99.9 118 20 121/59 (79) 99 CBC & BMP Diagram 10/30/17 22:30 Total Protein 7.5, Albumin 2.1 L, Calcium Level 8.4 L, Magnesium Level 1.9, Alkaline Phosphatase 412 H, Aspartate Amino Transf (AST/SGOT) 44 H, Alanine Aminotransferase (ALT/SGPT) 61 H, Total Bilirubin 1.0 10/30/17 23:57 Vital Signs Date Time Temp Pulse Resp B/P (MAP) Pulse Ox O2 Delivery O2 Flow Rate FiO2 10/30/17 22:30 92 Room Air 10/30/17 22:30 92 Room Air 10/30/17 21:19 99.9 118 20 121/59 (79) 99 Troponin I: 0.05; BMP 2562 Differential Diagnosis Dyspnea, CHF, pulmonary edema, PR, anemia, renal insufficiency, electrolyte disturbance, UTI, sepsis Narrative Course Patient placed on cardiac tech with continuous pulse oximetry IV access obtained specimens collected and sent for resulting patient with rales to auscultation and administered a one-time dose of IV Lasix 40 mg; EKG sinus tachycardia no acute ST elevation or injury pattern age-indeterminate anterior PR inferior PR with QS inferiorly Patient administered 1 dose of Lasix O2 saturations on 2 L per nasal cannula 98 -97% Patient demonstrates exacerbation of symptoms with minimal exertion; hemoglobin is identified to be very low and redraw is ordered along with stat venous ABG to identify actual hemoglobin; blood bank order has been placed for 2 units of packed cells now and one on hold; informed by blood bank patient has an antibody. Patient's case discussed with on-call hopper feeder will accept patient in transfer of care; patient aware that she will be administered transfusion upon transfer to [facility] son at bedside At 1:30 AM patient has been transferred to [facility] hopper feeder notified Critical Care Narrative Aggregate critical care time was 35 minutes. Time to perform other separately billable procedures was not included in the critical care time. My time did not include minutes spent treating any other patients simultaneously or on activities that did not directly contribute to the patient's treatment. The services I provided to this patient were to treat and/or prevent clinically significant deterioration that could result in: Respiratory failure myocardial infarction hypovolemic shock I provided critical care services requiring my management, as noted below: Chart data review, documentation time, medication orders and management, vital sign assessments/reviewing monitor data, ordering and reviewing lab tests, ordering and interpreting/reviewing x-rays and diagnostic studies, care of the patient and discussion of the patient with the admitting physicians. Physician Communication Physician Communication call placed to Account Installation Specialist, Dr Orosco Diagnosis Primary Impression: Dyspnea Qualified Codes: R06.09 - Other forms of dyspnea Additional Impressions: CHF (congestive heart failure) Qualified Codes: I50.83 - High output heart failure Iron deficiency anemia Qualified Codes: D50.8 - Other iron deficiency anemias Admitting Information Admitting Physician Requests: Admit Ximena Lind MD Oct 30, 2017 22:36
[2017-10-30] MEDS ORDERED: FUROSEMIDE 40 MG/4 ML VIAL IV PUSH ONE (22:45)
[2017-10-30 22:50] VITALS: BP 112/62; PULSE 102; RESP 18; O2SAT 98
--- NOTE | 2017-10-30 22:59 | RADRPT ---
EXAM DATE/TIME: 10/30/2017 22:32 [facility] COMPARISON: CHEST PA & LAT, September 19, 2017, 9:20. INDICATIONS : Short of breath MEDICAL HISTORY : Congestive heart failure. Carcinoma, breast. Hypertension. Gastroesophageal reflux disease. Ulce rative colitis. SURGICAL HISTORY : Appendectomy. Hemorrhoidectomy. Abdominal aortic aneurysm repair. Right femoral stent. ENCOUNTER: Initial ACUITY: 1 week PAIN SCORE: 0/10 LOCATION: Bilateral chest FINDINGS: The heart size is enlarged. The lungs demonstrate diffuse increased interstitial markings. There is f urther alveolar density seen in the right mid lung. There is a mild left pleural effusion. There is a n aortic stent graft seen in the abdominal aorta. Calcifications are seen throughout the thoracic aor ta. Old left rib fractures are seen. CONCLUSION: 1. Diffuse increased interstitial markings likely related to underlying interstitial process such as edema. 2. Further alveolar edema or consolidation in the right upper lung. 3. Cardiomegaly. 4. Mild left pleural effusion. Parviz Ch MD on October 30, 2017 at 22:55 Board Certified Radiologist. This report was verified electronically.
[2017-10-30 23:22] LABS: CHLORIDE 104 MEQ/L (98-107); SODIUM (NA) 136 MEQ/L (136-145)
[2017-10-30 23:25] LABS: CALCIUM 8.4 MG/DL (8.5-10.1)
[2017-10-30 23:26] LABS: ALBUMIN 2.1 GM/DL (3.4-5.0); BICARBONATE 22.4 MEQ/L (21.0-32.0); BLOOD UREA NITROGEN 23 MG/DL (7-18); GLUCOSE,RANDOM 240 MG/DL (74-106); MAGNESIUM 1.9 MG/DL (1.5-2.5)
[2017-10-30 23:28] LABS: INTERNATIONAL NORMALIZED RATIO 1.3 RATIO; PROTHROMBIN TIME - PATIENT 12.8 SEC (9.8-11.6)
[2017-10-30 23:29] LABS: ALT (GPT) 61 U/L (10-53); AST (GOT) 44 U/L (15-37); CREATININE 0.94 MG/DL (0.50-1.00); GLOMERULAR FILTRATION RATE 58 ML/MIN (>89)
[2017-10-30 23:30] VITALS: BP 115/68; PULSE 98; RESP 18; O2SAT 97
[2017-10-30 23:31] LABS: TOTAL PROTEIN 7.5 GM/DL (6.4-8.2)
[2017-10-30 23:32] LABS: ALKALINE PHOSPHATASE 412 U/L (45-117)
[2017-10-30 23:34] LABS: TROPONIN I 0.05 NG/ML (0.02-0.05)
[2017-10-30] MEDS ORDERED: SODIUM CHLOR 0.9% 250 ML INJ 250 ML IV ONE (23:45)
[2017-10-31] VITALS (23 sets, daily range): BP systolic 120–141; BP diastolic 55–70; PULSE 92–104; RESP 14–29; TEMP 97.6–98.8; O2SAT 90–100
[2017-10-31 00:07] LABS: MEAN CELL VOLUME 81.9 FL (80.0-100.0); MEAN CORPUSCULAR HEMOGLOBIN 24.1 PG (27.0-34.0); MEAN PLATELET VOLUME 10.9 FL (7.0-11.0); PLATELET COUNT 283 TH/MM3 (150-450); RED BLOOD COUNT 1.92 MIL/MM3 (4.00-5.30); RED CELL DISTRIBUTION WIDTH 25.4 % (11.6-17.2); WHITE BLOOD COUNT 11.9 TH/MM3 (4.0-11.0)
[2017-10-31 00:09] LABS: MEAN CORPUSCULAR HGB CONC 29.5 % (32.0-36.0)
[2017-10-31 00:12] LABS: HEMATOCRIT 15.7 % (35.0-46.0); HEMOGLOBIN 4.6 GM/DL (11.6-15.3)
[2017-10-31 00:29] LABS: BILIRUBIN, URINE NEG (NEG); BLOOD, URINE NEG (NEG); GLUCOSE,URINE NEG (NEG); KETONE, URINE NEG (NEG); NITRITE,URINE NEG (NEG); PH, URINE 5.5 (5.0-8.5); URINE COLOR YELLOW (YELLW/STRAW); URINE LEUKOCYTE ESTERASE NEG (NEG)
[2017-10-31 01:19] LABS: RBC, URINE 0-3 /hpf (0-3); SQUAMOUS EPITHELIAL CELL URINE 0-5 /hpf (0-5); WBC, URINE 0-2 /hpf (0-5)
[2017-10-31 01:31] LABS: BASOPHILS 1 % (0-2); CORRECTED NUCLEATED RBC 16 /100 WBC (0-0); CORRECTED WBC 10.3 TH/MM3 (4.0-11.0); LYMPHOCYTES 23 % (9-44); MONOCYTES 2 % (0-8); NEUTROPHIL # MANUAL DIFF 7.6 TH/MM3 (1.8-7.7); NUCLEATED RED BLOOD CELL 16 (0-0); POLYS (SEG NEUTROPHILS) 74 % (16-70)
[2017-10-31 01:32] LABS: OVALOCYTES 1+ (NORMAL); TARGET CELLS 1+ (NORMAL)
--- NOTE | 2017-10-31 02:35 | HHI.HP ---
HPI Service Critical Care Medicine Primary Care Physician Bobby Gomez MD Admission Diagnosis dyspnea; chf; anemia Diagnosis: Travel History International Travel<30 Days: No Contact w/Intl Traveler <30 Da: No Traveled to Known Affected Are: No History of Present Illness 77-year-old female with PMH of hereditary telangiectasia, CHF, DM, HTN, HLD, PAD , CKD stage III, Diabetic nephropathy who presents to [facility] [place] [facility] with 2 day history of shortness of breath and lower extremity edema. Symptoms of dyspnea progressed despite increased Lasix 20 mg to 40 mg daily. She had orthopnea and dyspnea on exertion. No fever, cough, hemoptysis, chest pain. Her son who is an RN at [employer] brought her to the hospital for evaluation and her hemoglobin was 4.6. She does have prior history of hereditary telangiectasia and resultant iron deficiency anemia for which she is followed by Dr. Vieyra. She had prior present similar presentation with hemoglobin of 4.3 in August 2017. She was transfused 2 units packed red cells. Lab workup was consistent with iron deficiency anemia and she wanted underwent iron sucrose infusions. She has an antibody and blood bank is working on preparing unit for transfusion. Patient denies hematemesis, bloody bowel movements, hematuria, gingival bleeding, epistaxis. She has undergone EGD and colonoscopy during prior admission in August which demonstrated 2 small ulcers, gastritis, esophagitis, internal and external hemorrhoids. Review of Systems Constitutional: DENIES: Fever Eyes: DENIES: Blurred vision Cardiovascular: COMPLAINS OF: Dyspnea on Exertion, Lower Extremity Edema, DENIES: Chest pain Gastrointestinal: DENIES: Abdominal pain, Black stools, Bloody stools, Nausea, Vomiting Musculoskeletal: DENIES: Joint Swelling Integumentary: DENIES: Rash Immunologic/allergic: DENIES: Eczema Neurologic: DENIES: Headache Psychiatric: COMPLAINS OF: Anxiety Past Family Social History Allergies: Coded Allergies: aspirin (Unverified Adverse Reaction, Severe, GI BLEEDING, 10/30/17) diclofenac (Unverified Adverse Reaction, Severe, GI BLEED, 10/30/17) duloxetine (Unverified Adverse Reaction, Severe, SUICIDAL THOUGHTS, 10/30/17 ) etodolac (Unverified Adverse Reaction, Severe, GI BLEED, 10/30/17) flurbiprofen (Unverified Adverse Reaction, Severe, GI BLEED, 10/30/17) ibuprofen (Unverified Adverse Reaction, Severe, GI BLEED, 10/30/17) indomethacin (Unverified Adverse Reaction, Severe, GI BLEED, 10/30/17) ketoprofen (Unverified Adverse Reaction, Severe, GI BLEED, 10/30/17) ketorolac (Unverified Adverse Reaction, Severe, GI BLEED, 10/30/17) naproxen (Unverified Adverse Reaction, Severe, GI BLEED, 10/30/17) oxaprozin (Unverified Adverse Reaction, Severe, GI BLEED, 10/30/17) Past Medical History Diabetes Diabetic nephropathy Hypertension Hyperlipidemia Fibromyalgia Peripheral arterial disease Impression Anxiety Ulcerative colitis Breast cancer, left breast Gout Iron deficiency anemia Macular degeneration Past Surgical History Endovascular repair of abdominal aortic aneurysm Transabdominal hysterectomy with Bilateral salpingo-oophorectomy Right common iliac stent Tonsillectomy Appendectomy Left breast biopsy and lumpectomy 04/29/12 Bilateral cataract removal with lens implant EGD 09/02/10 demonstrated gastritis EGD 2 small ulcers, gastritis, esophagitis Colonoscopy 09/10/17external and L internal hemorrhoids Reported Medications Lortab 7.5 one tab p.o. every 4 hours Paroxetine 20 mg p.o. daily Ativan 0.5 mill grams p.o. every 8 hours Potassium chloride 30 mg p.o. daily Lasix 40 mg p.o. daily Tamoxifen 5 mill grams p.o. twice daily Detemir 20 mg nightly Glipizide 10 mg p.o. twice daily Vitamin D 5000 units p.o. daily Family History No family history Morgan Samuel Mother of lung cancer at age 89 Father at age 86 Social History Patient states she is a former smoker and quit smoking 2 years ago Say she never drank alcohol Denies illicit drug use She is States she lives in a house next to her son Her son is a nurse at [employer] Physical Exam Vital Signs Vital Signs Date Time Temp Pulse Resp B/P (MAP) Pulse Ox O2 Delivery O2 Flow Rate FiO2 10/31/17 01:21 103 16 120/65 (83) 98 Nasal Cannula 2.00 10/31/17 00:51 98 Nasal Cannula 2.00 10/31/17 00:30 98.3 103 16 125/69 (87) 97 Nasal Cannula 2.00 10/30/17 23:45 10/30/17 23:30 98 18 115/68 (84) 97 Nasal Cannula 2.00 10/30/17 22:50 102 18 112/62 (79) 98 Nasal Cannula 2.00 10/30/17 22:30 92 Room Air 10/30/17 22:30 92 Room Air 10/30/17 21:19 99.9 118 20 121/59 (79) 99 Physical Exam GENERAL: Elderly female who is laying semirecumbent in [facility] bed, mildly tachypneic but speaking in complete sentences with nonlabored breathing. SKIN: Warm and dry. HEAD: Atraumatic. Normocephalic. EYES: Pupils equal and round, reactive. No scleral icterus. No injection or drainage. ENT: No nasal bleeding or discharge. Mucous membranes pink and moist.No mucosal telangiectasias noted of lips or oropharynx. Dentures in place NECK: Trachea midline. No JVD. CARDIOVASCULAR: Regular rate and rhythm. 2 out of 6 systolic murmur right sternal border RESPIRATORY: Mildly tachypneic but overall appears comfortable without accessory muscle use. Bibasilar rales. No wheeze or rhonchi. GASTROINTESTINAL: Abdomen soft, non-tender, nondistended. Bowel sounds present. MUSCULOSKELETAL: Extremities without clubbing, cyanosis. Mild pedal edema. NEUROLOGICAL: Awake and alert. Oriented to self and place. Not to year. No obvious cranial nerve deficits. Motor grossly within normal limits. Normal speech. Laboratory Laboratory Tests Test 10/30/17 22:30 10/30/17 23:55 10/30/17 23:57 10/31/17 00:13 Prothrombin Time 12.8 Prothromb Time International Ratio 1.3 Activated Partial Thromboplast Time 26.8 Blood Urea Nitrogen 23 Creatinine 0.94 Random Glucose 240 Total Protein 7.5 Albumin 2.1 Calcium Level 8.4 Magnesium Level 1.9 Alkaline Phosphatase 412 Aspartate Amino Transf (AST/SGOT) 44 Alanine Aminotransferase (ALT/SGPT) 61 Total Bilirubin 1.0 Sodium Level 136 Potassium Level 3.4 Chloride Level 104 Carbon Dioxide Level 22.4 Anion Gap 10 Estimat Glomerular Filtration Rate 58 Total Creatine Kinase 38 Troponin I 0.05 B-Type Natriuretic Peptide 2562 Blood Gas Puncture Site IV Blood Gas Patient Temperature 98.6 Venous Blood pH 7.43 Venous Blood Partial Pressure CO2 36 Venous Blood Partial Pressure O2 17 Venous Blood HCO3 24 Venous Blood Oxygen Saturation 13 Venous Blood Oxygen Content 0.9 Venous Blood Base Excess -0.2 Oxygen Delivery Device ROOM AIR Blood Gas Inspired Oxygen 21 White Blood Count 11.9 Corrected White Blood Count 10.3 Red Blood Count 1.92 Hemoglobin 4.6 Hematocrit 15.7 Mean Corpuscular Volume 81.9 Mean Corpuscular Hemoglobin 24.1 Mean Corpuscular Hemoglobin Concent 29.5 Red Cell Distribution Width 25.4 Platelet Count 283 Mean Platelet Volume 10.9 CBC Comment AUTO DIFF Differential Total Cells Counted 100 Neutrophils % (Manual) 74 Lymphocytes % 23 Monocytes % 2 Basophils % 1 Neutrophils # (Manual) 7.6 Nucleated Red Blood Cells 16 Differential Comment FINAL DIFF MANUAL Platelet Estimate NORMAL Platelet Morphology Comment NORMAL Basophilic Stippling FAINT Target Cells 1+ Ovalocytes 1+ Urine Color YELLOW Urine Turbidity CLEAR Urine pH 5.5 Urine Specific [place] 1.015 Urine Protein NEG Urine Glucose (UA) NEG Urine Ketones NEG Urine Occult Blood NEG Urine Nitrite NEG Urine Bilirubin NEG Urine Urobilinogen 0.2 Urine Leukocyte Esterase NEG Urine RBC 0-3 Urine WBC 0-2 Urine Squamous Epithelial Cells 0-5 Microscopic Urinalysis Comment CULT NOT INDICATED Result Diagram: 10/30/17 2357 10/30/17 2230 Caprini VTE Risk Assessment Caprini Risk Assessment Model Point Value = 1 Point Value = 2 Point Value = 3 Point Value = 5 Age 41-60 Minor surgery BMI > 25 kg/m2 Swollen legs Varicose veins or History of unexplained or recurrent spontaneous Oral contraceptives or hormone replacement Sepsis (< 1 month) Serious lung disease, including pneumonia (< 1 month) Abnormal pulmonary function Acute myocardial infarction Congestive heart failure (< 1 month) History of inflammatory bowel disease Medical patient at bed rest Age 61-74 Arthroscopic surgery Major open surgery (> 45 min) Laparoscopic surgery (> 45 min) Malignancy Confined to bed (> 72 hours) Immobilizing plaster cast Central venous access Age >= 75 History of VTE Family history of VTE Factor V Leiden Prothrombin [id number] Lupus anticoagulant Anticardiolipin antibodies Elevated serum homocysteine Heparin-induced thrombocytopenia Other congenital or acquired thrombophilia Stroke (< 1 month) Elective arthroplasty Hip, pelvis, or leg fracture Acute spinal cord injury (< 1 month) Prophylaxis Regimen Total Risk Factor Score Risk Level Prophylaxis Regimen 0-1 Low Early ambulation 2 Moderate Order ONE of the following: *Sequential Compression Device (SCD) *Heparin 5000 units SQ BID 3-4 Higher Order ONE of the following medications: *Heparin 5000 units SQ TID *Enoxaparin/Lovenox 40 mg SQ daily (WT < 150 kg, CrCl > 30 mL/min) *Enoxaparin/Lovenox 30 mg SQ daily (WT < 150 kg, CrCl > 10-29 mL/min) *Enoxaparin/Lovenox 30 mg SQ BID (WT < 150 kg, CrCl > 30 mL/min) AND/OR *Sequential Compression Device (SCD) 5 or more Highest Order ONE of the following medications: *Heparin 5000 units SQ TID (Preferred with Epidurals) *Enoxaparin/Lovenox 40 mg SQ daily (WT < 150 kg, CrCl > 30 mL/min) *Enoxaparin/Lovenox 30 mg SQ daily (WT < 150 kg, CrCl > 10-29 mL/min) *Enoxaparin/Lovenox 30 mg SQ BID (WT < 150 kg, CrCl > 30 mL/min) AND *Sequential Compression Device (SCD) Assessment and Plan Assessment and Plan NEURO: Depression Anxiety Lortab as needed for pain Continue Paxil 20 mg by mouth daily Ativan 0.5 mg p.o. every 8 hours as needed for anxiety RESP: Prior history of tobacco abuse Dyspnea secondary to severe symptomatic anemia. Transfusion PRBC as per below with Lasix 20 mg IV after the initial unit. Previous history of flash pulmonary edema following transfusion. On NC. DNI. Will use Bipap if needed. CV: Chronic systolic heart failure Mild to moderate aortic regurgitation Moderate to severe tricuspid regurgitation Pulmonary HTN Echo 09/15/17 ejection fraction 45-50%. Mild to moderate aortic valve regurgitation. Moderate to severe tricuspid regurgitation Received Lasix 40 mg IV in the ED. Additional Lasix 20 mg IV after transfusion. Continue Lasix 40 mg po daily. KCL as per below. GI: Gastritis, esophagitis, 2 nonbleeding shallow clean based ulcers in first part of duodenum (on EGD 09/10/17) Protonix 40 mg p.o. daily Heart healthy diet 2000-calorie ADA FEN/RENAL: CKD Diabetic nephropathy Hypokalemia Alarcon in place to monitor intake and output on patient who is in ICU on diuretics. Monitor electrolytes. Replace electrolytes as indicated per ICU replacement protocol. Potassium 40 mEq p.o. daily with Lasix 40 mg po daily ID: Monitor for signs and symptoms of infection HEME: Hereditary telangiectasia Worsening chronic iron deficiency anemia - chronic loss likely due to telangiectasia. History of left breast cancer status post lumpectomy in 2011 on maintenance therapy with tamoxifen Transfuse 2 units PRBC. She has anti- C antibody . She responded to iron infusions last admission and was able to avoid transfusion beyond 2 units. Will recheck iron studies, retic, LDH. Appears patient was still receiving outpatient Iron sucrose as outpatient through Dr. Vieyra office. Consult hematology, some discussion of BM biopsy if not responding to iron therapy. B12 and folate supplementation. Continue tamoxifen 5 mg p.o. twice daily ENDO: Diabetes mellitus Continue Levemir 20 units subcu nightly. Medium dose insulin sliding scale ac/ hs. PROPH: SCDs for DVT prophylaxis. No pharmacologic DVT prophylaxis due to severe anemia. Protonix as per above for history of peptic ulcer disease and gastritis ACCESS: Peripheral IV providing adequate access at this time. Per Dr. Lind discussion with patients son patient is DNR/DNI Level 3 H and P Elizabeth Orosco MD Oct 31, 2017 02:35
[2017-10-31] MEDS ORDERED: MAGNESIUM SULFATE INJ 2 GM in SODIUM CHLORIDE 0.9% INJ 96 ML IV PRN (02:45)
[2017-10-31] MEDS ORDERED: POTASSIUM PHOSPHATE MONOBASIC 500 MG TAB PO/TUBE PRN (02:45)
[2017-10-31] MEDS ORDERED: POTASSIUM PHOSPHATE INJ 30 MMOL in SODIUM CHLOR 0.9% 250 ML INJ 250 ML IV PRN (02:45)
[2017-10-31] MEDS ORDERED: SODIUM CHLORIDE 0.9% FLUSH 10 ML FLUSH IV FLUSH PRN (02:45)
[2017-10-31] MEDS ORDERED: POTASSIUM CHLOR 20 MEQ PREMIX 100 ML IV PRN ×2 (02:45)
[2017-10-31] MEDS ORDERED: BISACODYL 10 MG SUPP RECTAL PRN (02:45)
[2017-10-31] MEDS ORDERED: FUROSEMIDE 20 MG/2 ML VIAL IV PUSH ONE (02:45)
[2017-10-31] MEDS ORDERED: POTASSIUM CHLOR 40 MEQ PREMIX 100 ML IV PRN ×2 (02:45)
[2017-10-31] MEDS ORDERED: MISCELLANEOUS NURSING INFORMATION XX SCH (02:45)
[2017-10-31] MEDS ORDERED: POTASSIUM CHLORIDE 25 MEQ EFFERVESCENT TAB PO PRN (02:45)
[2017-10-31] MEDS ORDERED: RESP: ALBUTEROL 2.5 MG/3 ML NEB (PRN) INH (02:45)
[2017-10-31] MEDS ORDERED: CHLORHEXIDINE GLUCONATE 2 % 1 PACK (2 CLOTHS) TOP PRN (02:45)
[2017-10-31] MEDS ORDERED: SODIUM PHOSPHATE INJ 30 MMOL in SODIUM CHLOR 0.9% 250 ML INJ 240 ML IV PRN (02:45)
[2017-10-31] MEDS ORDERED: SENNOSIDES 8.6 MG TAB PO PRN (02:45)
[2017-10-31] MEDS ORDERED: ONDANSETRON HCL 4 MG/2 ML VIAL IV PUSH PRN (02:45)
[2017-10-31] MEDS ORDERED: MAGNESIUM SULFATE INJ 4 GM in SODIUM CHLORIDE 0.9% INJ 92 ML IV PRN (02:45)
[2017-10-31] MEDS ORDERED: MAGNESIUM HYDROXIDE SUSP 30 ML CUP PO PRN (02:45)
[2017-10-31] MEDS ORDERED: POTASSIUM PHOSPHATE MONOBASIC 500 MG TAB PO PRN (02:45)
[2017-10-31] MEDS ORDERED: LACTULOSE SYRUP 20 GM/30 ML CUP PO PRN (02:45)
[2017-10-31] MEDS ORDERED: ACETAMINOPHEN 325 MG TAB PO PRN (02:45)
[2017-10-31] MEDS ORDERED: MAGNESIUM OXIDE 400 MG TAB PO PRN (02:45)
[2017-10-31 03:59] LABS: RETIC # 84.1 MIL/L (20.0-150.0); RETIC % 4.5 % (0.4-3.0)
[2017-10-31] MEDS: CHLORHEXIDINE GLUCONATE 2 % 1 PACK (2 CLOTHS) TOP SCH (04:00)
[2017-10-31 04:02] LABS: IRON (FE) 10 MCG/DL (50-170)
[2017-10-31 04:11] LABS: % SATURATION IRON PROFILE 3.5 % (20-50); TOTAL IRON BINDING CAPACITY 288 MCG/DL (250-450)
[2017-10-31] MEDS ORDERED: IRON SUCROSE INJ 200 MG in SODIUM CHLORIDE 0.9% INJ 100 ML IV ONE (06:00)
[2017-10-31] MEDS ORDERED: LORazepam 0.5 MG TAB PO PRN (07:00)
[2017-10-31] MEDS: INSULIN ASPART SUPPLEMENTAL SCALE SQ SCH ×4 (08:00→20:39)
[2017-10-31] MEDS: SODIUM CHLORIDE 0.9% FLUSH 10 ML FLUSH IV FLUSH SCH ×2 (08:46→20:38)
[2017-10-31] MEDS ORDERED: TAMOXIFEN CITRATE 10 MG TAB PO SCH (09:00)
[2017-10-31] MEDS: CYANOCOBALAMIN 100 MCG TAB PO SCH (09:00)
[2017-10-31] MEDS: POTASSIUM CHLORIDE 10 MEQ CONTROLLED RELEASE TAB PO SCH (11:04)
[2017-10-31] MEDS: DOCUSATE SODIUM 50 MG/SENNA 8.6 MG TAB PO SCH ×2 (11:05→20:38)
[2017-10-31] MEDS: PARoxetine HCL 20 MG TAB PO SCH (11:05)
[2017-10-31] MEDS: PANTOPRAZOLE SOD 40 MG DELAYED RELEASE TAB PO SCH (11:05)
[2017-10-31] MEDS: CHOLECALCIFEROL (VIT D3) 1000 UNIT TAB PO SCH (11:05)
[2017-10-31] MEDS: FOLIC ACID 1 MG TAB PO SCH (11:05)
--- NOTE | 2017-10-31 11:17 | MB ---
cc: Glenna Vieyra MD,Elizabeth Holland MD DATE: 10/31/2017 REFERRING PHYSICIAN: Dr. Elizabeth Orosco. CHIEF COMPLAINT: Dr. Orosco requests consultation for Ms. Altamirano regarding symptomatic anemia secondary to iron deficiency from hereditary telangiectasia syndrome. HISTORY OF PRESENT ILLNESS: Ms. Altamirano is a pleasant 77-year-old woman, well known patient with a low ER positive breast cancer. Her course is complicated by hereditary telangiectasia. For quite some time she has had no bleeding event from her hereditary telangiectasia. She was iron-replete. She was taking her tamoxifen for breast cancer with no evidence of recurrence. She was admitted to the hospital in 09/2017. She decompensated with admission to the hospital on 08/2017 with significant anemia. She was transfused, given iron. She was readmitted for flash pulmonary edema. Ultimately, she was discharged home with cardiology evaluation and plan for continued diuresis. She is seen in clinic on 10/04/2017 with plans to replace her iron parenterally. We were monitoring her hemoglobin and had a pending appointment in the next week. Ms. Altamirano is noted to have increasing shortness of breath. She was brought in by her son and was found to have a hemoglobin of 4.6 on admission. She denies any bleeding. She describes a gradual decrease in her energy. She is noted to have retic count of 4.5%. Her MCV is normal. Her ferritin is 76, although this is difficult to interpret as ferritin is an acute phase reactant. Her liver functions are elevated. Her beta natriuretic peptide is 2500. She is admitted to the ICU for observation. She denies any chest pain. She was transfused 2 units of packed red cells and tolerated fluid well. She is iron ongoing. She feels better. She denies any changes in bowel habits and has not moved her bowels today. Denies any urinary complaints. The rest of her review of systems is negative. PAST MEDICAL HISTORY: Anxiety, anemia, arthritis, chronic renal insufficiency, coronary artery disease, congestive heart failure, diabetes type 2, fibromyalgia, hemorrhoids, hereditary telangiectasia, low ER positive breast cancer. PAST SURGICAL HISTORY: Appendectomy, hysterectomy, tonsillectomy, and left breast lumpectomy and sentinel node biopsy in 2011, colonoscopy and endoscopy. ALLERGIES: ASPIRIN AND CYMBALTA. FAMILY HISTORY: Significant for both parents are . No family history of hereditary telangiectasia. SOCIAL HISTORY: She is recently , retired, lives with her son and [id number]. She quit smoking 5 years ago, but has a [id number]-tyiz smoking history. She denies any alcohol or illicit drug use. CURRENT MEDICATIONS: Include: Lasix, Levemir 20 units, Protonix, Lilia-Colace, potassium chloride, vitamin B12, folate, vitamin D3, Paxil, Nolvadex. PHYSICAL EXAMINATION: VITAL SIGNS: Temperature 98.5, heart rate 96, respiratory rate 25, blood pressure 121/58, saturation 99%. GENERAL: Ms. Altamirano is a pleasant elderly 77-year-old woman, who looks well. She is cold and tucked in many blankets. HEENT: Pupils are round, reactive to light and accommodation. Conjunctivae is pink. Oropharynx is clear. NECK: Supple. LUNGS: Clear anteriorly. CARDIOVASCULAR: Reveals mild tachycardia. ABDOMEN: Benign. LOWER EXTREMITIES: With no edema. Good pulses. NEUROLOGIC: Nonfocal. LABORATORY DATA: BUN of 23, creatinine 0.94, glucose 240. Serum iron 10, iron saturation 3.5, ferritin 76. Beta natriuretic peptide as described above. ASSESSMENT AND PLAN: Ms. Altamirano is a 77-year-old woman, well known patient with a low ER positive breast cancer. Clinically, she had no evidence of recurrent disease. Her course is complicated by hereditary telangiectasia and recurrent iron deficiency anemia. She appears to have an occult source of iron/blood loss. She has had a GI evaluation from her last admission that failed to identify a source. Unable to exclude completely underlying bone marrow pathology. Her iron appears to be low, which argues for iron deficiency of blood loss anemia contributing to the above. Her symptoms have been gradual and worse over the last week. The pattern appears to be that of a slow blood loss anemia. Defer to gastroenterology workup. Recommend holding the tamoxifen in light of its increased risk for her thrombotic event. She is hospitalized and limited mobility during her hospitalization. We will resume the tamoxifen when she gets out of the hospital. Plan was to replace her iron. We will monitor her bone marrow response. We will work with GI to rule out GI source of blood loss. MD RUSSELL Henry/TL , 10:44 AM , 11:16 AM
--- NOTE | 2017-10-31 11:43 | HHI.PR ---
Subjective Remarks feels a little stronger. denies seeing any bleeding was sob and weak Objective Vitals heart reg lung cta abd s/nt ext no edema Vital Signs Date Time Temp Pulse Resp B/P (MAP) Pulse Ox O2 Delivery O2 Flow Rate FiO2 10/31/17 08:22 98.5 96 25 121/58 (79) 99 10/31/17 08:21 98 Nasal Cannula 2.00 10/31/17 06:00 98.4 93 27 126/56 (79) 100 10/31/17 06:00 93 10/31/17 05:00 98.6 93 22 126/59 (81) 100 10/31/17 04:00 98.5 93 18 126/60 (82) 99 10/31/17 04:00 93 10/31/17 03:00 93 10/31/17 03:00 98.7 93 18 128/58 (81) 100 10/31/17 01:21 103 16 120/65 (83) 98 Nasal Cannula 2.00 10/31/17 00:51 98 Nasal Cannula 2.00 10/31/17 00:30 98.3 103 16 125/69 (87) 97 Nasal Cannula 2.00 10/30/17 23:45 10/30/17 23:30 98 18 115/68 (84) 97 Nasal Cannula 2.00 10/30/17 22:50 102 18 112/62 (79) 98 Nasal Cannula 2.00 10/30/17 22:30 92 Room Air 10/30/17 22:30 92 Room Air 10/30/17 21:19 99.9 118 20 121/59 (79) 99 Result Diagram: 10/30/17 4107 10/30/17 2230 A/P Problem List: (1) Symptomatic anemia ICD Codes: D64.9 - Anemia, unspecified Status: Acute Plan: hereditary telangiectasia acute worsening of chronic iron deficiency anemia - chronic loss likely due to telangiectasia. Dyspnea secondary to severe symptomatic anemia History of left breast cancer status post lumpectomy in 2011 on maintenance therapy with tamoxifen Chronic systolic heart failure Mild to moderate aortic regurgitation Moderate to severe tricuspid regurgitation Pulmonary HTN Echo 09/15/17 ejection fraction 45-50%. Mild to moderate aortic valve regurgitation. Moderate to severe tricuspid regurgitation Gastritis, esophagitis, 2 nonbleeding shallow clean based ulcers in first part of duodenum (on EGD 09/10/17) CKD 3 Diabetic nephropathy Hypokalemia Diabetes mellitus Pt in ICU setting and receiving her second unit prbc. monitor for chf sx's repeat h/h pending iv iron ordered her lift team technician is consulted cont ppi dvt prophylaxis PT eval. (2) Iron deficiency anemia ICD Codes: D50.9 - Iron deficiency anemia, unspecified Status: Chronic (3) Hypertension ICD Codes: I10 - Essential (primary) hypertension Status: Chronic (4) CHF (congestive heart failure) ICD Codes: I50.9 - Heart failure, unspecified Status: Chronic (5) CKD (chronic kidney disease), stage III ICD Codes: N18.3 - Chronic kidney disease, stage 3 (moderate) Status: Chronic (6) DM2 (diabetes mellitus, type 2) ICD Codes: E11.9 - Type 2 diabetes mellitus without complications Status: Chronic Problem Qualifiers (1) Iron deficiency anemia: Qualified Codes: D50.8 - Other iron deficiency anemias (2) CHF (congestive heart failure): Qualified Codes: I50.83 - High output heart failure Nav Slade MD Oct 31, 2017 11:43
[2017-10-31 12:23] LABS: HEMATOCRIT 25.1 % (35.0-46.0); HEMOGLOBIN 7.8 GM/DL (11.6-15.3)
--- NOTE | 2017-10-31 16:48 | EKG ---
Date Performed: 10/30/2017 Time Performed: 23:00:40 PTAGE: 77 years EKG: SINUS TACHYCARDIA WITH ONE COUPLET OF PVCS GENERALIZED LOW VOLTAGE INFERIOR MYOCARDIAL INFA RCTION Compared to previous tracing, T waves are more flattened and the PVCs are new ABNORMAL ECG PREVIOUS TRACING : 09/17/2017 14.56 DOCTOR: Nav Encarnacion Interpretating Date/Time 10/31/2017 16:46:58
[2017-10-31] MEDS ORDERED: INSULIN DETEMIR 100 UNITS/ML VIAL SQ SCH (21:00)
[2017-10-31] MEDS: ACETAMINOPHEN/HYDROcodone 325 MG/7.5 MG TAB PO PRN (21:35)
[2017-11-01] VITALS (22 sets, daily range): BP systolic 93–115; BP diastolic 46–61; PULSE 87–104; RESP 12–22; TEMP 97.5–99.6; O2SAT 91–100
[2017-11-01] MEDS: CHLORHEXIDINE GLUCONATE 2 % 1 PACK (2 CLOTHS) TOP SCH ×2 (03:57→23:03)
[2017-11-01 04:17] LABS: AUTOMATED NEUTROPHIL # 10.3 TH/MM3 (1.8-7.7); BASOPHIL % 0.3 % (0.0-2.0); EOSINOPHIL # 0.2 TH/MM3 (0-0.4); EOSINOPHIL % 1.8 % (0.0-4.0); HEMATOCRIT 25.4 % (35.0-46.0); HEMOGLOBIN 7.7 GM/DL (11.6-15.3); LYMPH % 9.1 % (9.0-44.0); LYMPHOCYTE # 1.2 TH/MM3 (1.0-4.8); MEAN CELL VOLUME 81.8 FL (80.0-100.0); MEAN CORPUSCULAR HEMOGLOBIN 24.7 PG (27.0-34.0); MEAN CORPUSCULAR HGB CONC 30.2 % (32.0-36.0); MEAN PLATELET VOLUME 10.6 FL (7.0-11.0); MONO % 8.3 % (0.0-8.0); MONOCYTE # 1.1 TH/MM3 (0-0.9); NEUT % 80.5 % (16.0-70.0); PLATELET COUNT 255 TH/MM3 (150-450); RED BLOOD COUNT 3.11 MIL/MM3 (4.00-5.30); RED CELL DISTRIBUTION WIDTH 21.5 % (11.6-17.2); WHITE BLOOD COUNT 12.7 TH/MM3 (4.0-11.0)
[2017-11-01 04:54] LABS: BICARBONATE 26.1 MEQ/L (21.0-32.0); CALCIUM 8.4 MG/DL (8.5-10.1); CREATININE 0.66 MG/DL (0.50-1.00)
[2017-11-01] MEDS ORDERED: DEXTROSE 50% IN WATER 50 ML SYRINGE ONE (04:58)
[2017-11-01] MEDS ORDERED: GLUCAGON 1 MG/ML VIAL OTHER PRN (05:30)
[2017-11-01] MEDS: DEXTROSE 50% IN WATER 50 ML VIAL(D50) IV PUSH PRN ×2 (05:34→12:20)
[2017-11-01 07:15] LABS: CORRECTED NUCLEATED RBC 29 /100 WBC (0-0); LYMPHOCYTES 5 % (9-44); MONOCYTES 4 % (0-8); NEUTROPHIL # MANUAL DIFF 11.2 TH/MM3 (1.8-7.7); NUCLEATED RED BLOOD CELL 29 (0-0); OVALOCYTES 1+ (NORMAL); POLYS (SEG NEUTROPHILS) 88 % (16-70); TARGET CELLS 1+ (NORMAL)
[2017-11-01] MEDS: INSULIN ASPART SUPPLEMENTAL SCALE SQ SCH ×4 (08:00→22:53)
[2017-11-01] MEDS: FOLIC ACID 1 MG TAB PO SCH (09:20)
[2017-11-01] MEDS: CYANOCOBALAMIN 100 MCG TAB PO SCH (09:20)
[2017-11-01] MEDS: DOCUSATE SODIUM 50 MG/SENNA 8.6 MG TAB PO SCH ×2 (09:20→22:52)
[2017-11-01] MEDS: PARoxetine HCL 20 MG TAB PO SCH (09:21)
[2017-11-01] MEDS: PANTOPRAZOLE SOD 40 MG DELAYED RELEASE TAB PO SCH (09:21)
[2017-11-01] MEDS: CHOLECALCIFEROL (VIT D3) 1000 UNIT TAB PO SCH (09:21)
[2017-11-01] MEDS: FUROSEMIDE 40 MG TAB PO SCH (09:21)
[2017-11-01] MEDS: POTASSIUM CHLORIDE 10 MEQ CONTROLLED RELEASE TAB PO SCH (09:22)
[2017-11-01] MEDS: SODIUM CHLORIDE 0.9% FLUSH 10 ML FLUSH IV FLUSH SCH ×2 (09:23→22:53)
[2017-11-01] MEDS ORDERED: ESCITALOPRAM OXALATE 10 MG TAB PO SCH (12:30)
[2017-11-01] MEDS: ACETAMINOPHEN/HYDROcodone 325 MG/7.5 MG TAB PO PRN ×2 (12:38→22:52)
--- NOTE | 2017-11-01 12:42 | HHI.PR ---
Subjective Remarks No new complaints. Pt has a flat affect Objective Vitals Vital Signs Date Time Temp Pulse Resp B/P (MAP) Pulse Ox O2 Delivery O2 Flow Rate FiO2 11/01/17 12:00 97 11/01/17 10:01 93 13 100/58 (72) 96 11/01/17 10:00 93 11/01/17 10:00 93 17 95 11/01/17 09:01 92 16 93/46 (62) 100 11/01/17 09:00 92 16 100 11/01/17 08:00 88 11/01/17 08:00 97.5 88 14 98/54 (69) 98 11/01/17 07:02 87 17 99/47 (64) 99 11/01/17 07:00 88 19 97 11/01/17 06:00 92 11/01/17 04:00 97.5 90 14 108/55 (72) 91 11/01/17 04:00 91 11/01/17 02:26 95 Nasal Cannula 11/01/17 02:00 103 11/01/17 00:00 98.6 92 12 100/57 (71) 94 11/01/17 00:00 91 10/31/17 22:00 97 10/31/17 20:00 102 10/31/17 20:00 98.8 102 26 132/59 (83) 96 10/31/17 18:00 104 10/31/17 18:00 104 24 135/63 (87) 96 10/31/17 17:00 97.6 104 29 128/60 (82) 95 10/31/17 17:00 104 10/31/17 16:00 101 10/31/17 16:00 101 23 139/64 (89) 97 10/31/17 15:00 102 10/31/17 15:00 102 24 134/62 (86) 95 10/31/17 14:00 102 10/31/17 14:00 102 14 121/57 (78) 98 10/31/17 13:00 98.0 102 19 134/66 (88) 97 10/31/17 13:00 102 11/01/17 11/01/17 11/02/17 15:00 23:00 07:00 Intake Total 100 ml Balance 100 ml IV Total 100 ml Result Diagram: 4/9/18 0327 4/9/18 0327 Imaging Last Impressions Chest X-Ray 10/30/17 4098 Signed Impressions: Service Date/Time: Monday, October 30, 2017 22:32 - CONCLUSION: 1. Diffuse increased interstitial markings likely related to underlying interstitial process such as edema. 2. Further alveolar edema or consolidation in the right upper lung. 3. Cardiomegaly. 4. Mild left pleural effusion. Parviz Ch MD Objective Remarks GENERAL: This is a well-nourished, well-developed patient, in no apparent distress. CARDIOVASCULAR: Regular rate and rhythm without murmurs, gallops, or rubs. RESPIRATORY: Clear to auscultation. Breath sounds equal bilaterally. No wheezes , rales, or rhonchi. GASTROINTESTINAL: Abdomen soft, non-tender, nondistended. Normal active bowel sounds MUSCULOSKELETAL: Extremities without clubbing, cyanosis, or edema. NEURO: Alert & Oriented x3, but confused at times. 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 Dyspnea secondary to severe symptomatic anemia History of left breast cancer status post lumpectomy in 2011 on maintenance therapy with tamoxifen Chronic systolic heart failure, Echo 09/15/17 ejection fraction 45-50%. Mild to moderate aortic valve regurgitation. Moderate to severe tricuspid regurgitation Mild to moderate aortic regurgitation Moderate to severe tricuspid regurgitation Pulmonary HTN Gastritis, esophagitis, 2 nonbleeding shallow clean based ulcers in first part of duodenum (on EGD 09/10/17) CKD 3 Diabetic nephropathy Diabetes mellitus - Pt previously admitted at [facility] Aug 2017 for acute on chronic anemia. - Pt underwent endoscopy without identifying the source of bleeding. - Pt transfused 2 units PRBCs 10/31/17 - Pt received IV iron - Will transfuse additional 1 unit PRBC today, then IV lasix - Case d/w Pt's Pharmaceutical Laboratory Technician Dr. Vieyra (11/11/17) - Case d/w pt's son, Mr. Jonas Altamirano. He reports that Ms. Altamriano has NOT been doing well at home. Pt is essentially [id number]. Pt has been largely bed bound for months. Pt has been eating poorly. - Son does NOT want GI consult or w/u at this time. - Pt's son request hospice consult. I agree that this is appropriate. - continue PPI - DVT prophylaxis - PT - supportive care - Will meet with pt/son tomorrow for family conference. (2) Iron deficiency anemia ICD Codes: D50.9 - Iron deficiency anemia, unspecified Status: Chronic Plan: - see above (3) CHF (congestive heart failure) ICD Codes: I50.9 - Heart failure, unspecified Status: Chronic Plan: - continue daily lasix - observe for exacerbation with transfusions (4) CKD (chronic kidney disease), stage III ICD Codes: N18.3 - Chronic kidney disease, stage 3 (moderate) Status: Chronic Plan: - observe (5) DM2 (diabetes mellitus, type 2) ICD Codes: E11.9 - Type 2 diabetes mellitus without complications Status: Chronic Plan: - levemir dose reduced d/t hypoglycemia - SSI - observe Problem Qualifiers (1) Iron deficiency anemia: Qualified Codes: D50.8 - Other iron deficiency anemias (2) CHF (congestive heart failure): Qualified Codes: I50.83 - High output heart failure (3) DM2 (diabetes mellitus, type 2): Qualified Codes: E11.8 - Type 2 diabetes mellitus with unspecified complications; Z79.4 - care home (current) use of insulin Jude Vazquez DO Nov 01, 2017 12:42
[2017-11-01] MEDS ORDERED: FUROSEMIDE 20 MG/2 ML VIAL IV PUSH ONE (13:00)
[2017-11-01] MEDS ORDERED: SODIUM CHLOR 0.9% 250 ML INJ 250 ML IV ONE (13:00)
--- NOTE | 2017-11-01 15:09 | PD.ONC.PN ---
Subjective Subjective Remarks Afebrile overnight. Patient resting in bed. denies shortness of breath or lightheadedness. no blood in stool per nurses. family considering hospice. Objective Data Date Time Temp Pulse Resp B/P (MAP) Pulse Ox O2 Delivery O2 Flow Rate FiO2 11/01/17 14:33 99.0 97 17 115/49 97 11/01/17 14:01 102 19 115/49 (71) 99 11/01/17 14:00 103 20 99 11/01/17 14:00 102 11/01/17 13:00 97 19 107/58 (74) 99 11/01/17 12:01 99.0 98 15 103/51 (68) 92 11/01/17 12:00 97 16 93 11/01/17 12:00 97 11/01/17 11:00 94 18 96/59 (71) 100 11/01/17 10:01 93 13 100/58 (72) 96 11/01/17 10:00 93 11/01/17 10:00 93 17 95 11/01/17 09:01 92 16 93/46 (62) 100 11/01/17 09:00 92 16 100 11/01/17 08:00 88 11/01/17 08:00 97.5 88 14 98/54 (69) 98 11/01/17 07:02 87 17 99/47 (64) 99 11/01/17 07:00 88 19 97 11/01/17 06:00 92 11/01/17 04:00 97.5 90 14 108/55 (72) 91 11/01/17 04:00 91 11/01/17 02:26 95 Nasal Cannula 11/01/17 02:00 103 11/01/17 00:00 98.6 92 12 100/57 (71) 94 11/01/17 00:00 91 10/31/17 22:00 97 10/31/17 20:00 102 10/31/17 20:00 98.8 102 26 132/59 (83) 96 10/31/17 18:00 104 10/31/17 18:00 104 24 135/63 (87) 96 10/31/17 17:00 97.6 104 29 128/60 (82) 95 10/31/17 17:00 104 10/31/17 16:00 101 10/31/17 16:00 101 23 139/64 (89) 97 11/01/17 11/01/17 11/01/17 07:00 15:00 23:00 Intake Total 120 ml 110 ml Output Total 251 ml Balance -131 ml 110 ml Result Diagram: 11/01/17 0327 11/01/17 0327 Laboratory Results Laboratory Tests Test 10/31/17 17:02 11/01/17 03:27 Potassium Level 3.8 MEQ/L 3.3 MEQ/L Random Glucose 436 MG/DL 35 MG/DL White Blood Count 12.7 TH/MM3 Red Blood Count 3.11 MIL/MM3 Hemoglobin 7.7 GM/DL Hematocrit 25.4 % Mean Corpuscular Volume 81.8 FL Mean Corpuscular Hemoglobin 24.7 PG Mean Corpuscular Hemoglobin Concent 30.2 % Red Cell Distribution Width 21.5 % Platelet Count 255 TH/MM3 Mean Platelet Volume 10.6 FL Neutrophils (%) (Auto) 80.5 % Lymphocytes (%) (Auto) 9.1 % Monocytes (%) (Auto) 8.3 % Eosinophils (%) (Auto) 1.8 % Basophils (%) (Auto) 0.3 % Neutrophils # (Auto) 10.3 TH/MM3 Lymphocytes # (Auto) 1.2 TH/MM3 Monocytes # (Auto) 1.1 TH/MM3 Eosinophils # (Auto) 0.2 TH/MM3 Basophils # (Auto) 0.0 TH/MM3 CBC Comment AUTO DIFF Differential Total Cells Counted 100 Neutrophils % (Manual) 88 % Lymphocytes % 5 % Monocytes % 4 % Eosinophils % 3 % Neutrophils # (Manual) 11.2 TH/MM3 Nucleated Red Blood Cells 29 /100 WBC Differential Comment FINAL DIFF MANUAL Platelet Estimate NORMAL Platelet Morphology Comment ENLARGED Target Cells 1+ Ovalocytes 1+ Red Cell Morphology Comment Blood Urea Nitrogen 19 MG/DL Creatinine 0.66 MG/DL Calcium Level 8.4 MG/DL Sodium Level 136 MEQ/L Chloride Level 102 MEQ/L Carbon Dioxide Level 26.1 MEQ/L Anion Gap 8 MEQ/L Estimat Glomerular Filtration Rate 87 ML/MIN Administered Medications Medications (Trade) Dose Ordered Sig/Fatoumata Route PRN Reason Start Time Stop Time Status Last Admin Dose Admin Potassium Bicarb/ Potassium Chloride (K-Lyte Cl Eff) 50 meq UNSCH PRN PO For Potassium 3.3 - 3.5 mEq/L 10/31/17 02:45 10/31/17 14:21 Potassium Chloride 100 ml @ 50 mls/hr Q2H PRN IV For Potassium 3.3 - 3.5 mEq/L 10/31/17 02:45 11/01/17 05:41 Sodium Chloride (NS Flush) 2 ml BID IV FLUSH 10/31/17 09:00 11/01/17 09:23 Pantoprazole Sodium (Protonix) 40 mg DAILY PO 10/31/17 09:00 11/01/17 09:21 Senna/Docusate Sodium (Lilia-Colace) 1 tab BID PO 10/31/17 09:00 11/01/17 09:20 Furosemide (Lasix) 40 mg DAILY PO 11/01/17 09:00 11/01/17 09:21 Potassium Chloride (KCl) 40 meq DAILY PO 10/31/17 09:00 11/01/17 09:22 Cyanocobalamin (Vitamin B12) 100 mcg DAILY PO 10/31/17 09:00 11/01/17 09:20 Folic Acid (Folate) 1 mg DAILY PO 10/31/17 09:00 11/01/17 09:20 Cholecalciferol (Vitamin D3) 5,000 units DAILY PO 10/31/17 09:00 11/01/17 09:21 Acetaminophen/ Hydrocodone Bitart ([place] 7.5-325 Mg) 1 tab Q4H PRN PO PAIN 10/31/17 07:00 11/01/17 12:38 Insulin Aspart (NovoLOG SUPPLEMENTAL SCALE) 1 ACHS SLIDING SCALE SQ 10/31/17 08:00 10/31/17 20:39 Dextrose (D50w (Vial) Inj) 50 ml UNSCH PRN IV PUSH HYPOGLYCEMIA - SEE COMMENTS 11/01/17 05:30 11/01/17 12:20 Sodium Chloride 250 ml @ 15 mls/hr ONCE ONCE IV 11/01/17 13:00 11/02/17 05:39 11/01/17 14:26 Objective Remarks GENERAL: Elderly female, lying supine in bed resting. SKIN: Warm and dry. HEAD: Normocephalic. EYES: No injection or drainage. NECK: Supple, trachea midline. CARDIOVASCULAR: Regular rate and rhythm RESPIRATORY: Breath sounds equal bilaterally. No accessory muscle use. GASTROINTESTINAL: Abdomen soft, non-tender, nondistended. EXTREMITIES: No cyanosis NEUROLOGICAL: awake, normal speech. Assessment/Plan Problem List: (1) Iron deficiency anemia ICD Codes: D50.9 - Iron deficiency anemia, unspecified Status: Chronic Plan: ++ hereditary telangiectasia and recurrent iron deficiency anemia. --appears to have an occult source of iron/blood loss. --had a GI evaluation from her last admission that failed to identify a source. (2) History of breast cancer ICD Codes: Z85.3 - Personal history of malignant neoplasm of breast Plan: --Recommend holding the tamoxifen in light of its increased risk for her thrombotic event (i.e. immobility during hospitalization) -- will resume the tamoxifen when she gets out of the hospital. Assessment 77y/o female with symptomatic anemia secondary to iron deficiency from hereditary telangiectasia syndrome. h/o Anxiety, anemia, arthritis, chronic renal insufficiency, coronary artery disease, congestive heart failure, diabetes type 2, fibromyalgia, hemorrhoids, hereditary telangiectasia, low ER positive breast cancer. Plan 1. [facility] 2. await hospice consult 3. continue supportive care 4. monitor CBC Attending Statement The exam, history, and the medical decision-making described in the above note were completed with the assistance of the mid-level provider. I reviewed and agree with the findings presented. I attest that I had a [id number] encounter with the patient on the same day, and personally performed and documented my assessment and findings in the medical record. Seen earlier with son at bedside. Quiet and tucked under her blankets. At first agreed with plan for supportive transfusions allowing GI to work out if site of bleed could be identified. We discussed possible port placement. Agreed to psychiatry consult as she feels depressed. Discussed w/ Dr. Vazquez after, as son and patient have changed their mind and opt to proceed with hospice care secondary to failure to thrive. Will support pt and son on their decision. Problem Qualifiers (1) Iron deficiency anemia: Qualified Codes: D50.8 - Other iron deficiency anemias Kiara Silva Nov 01, 2017 15:09 Glenna Vieyra MD Nov 01, 2017 18:03
[2017-11-01] MEDS ORDERED: INSULIN DETEMIR 100 UNITS/ML VIAL SQ SCH (21:00)
[2017-11-02] VITALS: BP 110/54; PULSE 103; RESP 22; TEMP 98.2; O2SAT 96
[2017-11-02 04:00] VITALS: BP 121/57; PULSE 109; RESP 22; TEMP 99.8; O2SAT 96
[2017-11-02 04:36] LABS: AUTOMATED NEUTROPHIL # 10.6 TH/MM3 (1.8-7.7); BASOPHIL # 0.1 TH/MM3 (0-0.2); BASOPHIL % 0.9 % (0.0-2.0); EOSINOPHIL # 0.3 TH/MM3 (0-0.4); EOSINOPHIL % 2.3 % (0.0-4.0); HEMATOCRIT 28.3 % (35.0-46.0); HEMOGLOBIN 8.6 GM/DL (11.6-15.3); LYMPH % 9.1 % (9.0-44.0); LYMPHOCYTE # 1.2 TH/MM3 (1.0-4.8); MEAN CELL VOLUME 82.6 FL (80.0-100.0); MEAN CORPUSCULAR HEMOGLOBIN 25.1 PG (27.0-34.0); MEAN CORPUSCULAR HGB CONC 30.4 % (32.0-36.0); MONO % 7.3 % (0.0-8.0); NEUT % 80.4 % (16.0-70.0); PLATELET COUNT 238 TH/MM3 (150-450); RED BLOOD COUNT 3.42 MIL/MM3 (4.00-5.30); WHITE BLOOD COUNT 13.1 TH/MM3 (4.0-11.0)
[2017-11-02 05:07] LABS: BICARBONATE 24.8 MEQ/L (21.0-32.0); CALCIUM 8.2 MG/DL (8.5-10.1); CREATININE 0.98 MG/DL (0.50-1.00); MAGNESIUM 1.6 MG/DL (1.5-2.5)
[2017-11-02] MEDS: ACETAMINOPHEN/HYDROcodone 325 MG/7.5 MG TAB PO PRN (06:26)
[2017-11-02 07:08] LABS: BANDS 2 % (0-6); CORRECTED NUCLEATED RBC 16 /100 WBC (0-0); LYMPHOCYTES 8 % (9-44); MONOCYTES 1 % (0-8); MYELOCYTES 1 % (0-0); NEUTROPHIL # MANUAL DIFF 11.4 TH/MM3 (1.8-7.7); NUCLEATED RED BLOOD CELL 16 (0-0); POLYS (SEG NEUTROPHILS) 84 % (16-70)
[2017-11-02 07:10] LABS: OVALOCYTES 2+ (NORMAL); TARGET CELLS 1+ (NORMAL); TEARDROP RBCS 1+ (NORMAL)
[2017-11-02] MEDS: FUROSEMIDE 40 MG TAB PO SCH (08:10)
[2017-11-02] MEDS: DOCUSATE SODIUM 50 MG/SENNA 8.6 MG TAB PO SCH (08:10)
[2017-11-02] MEDS: CHOLECALCIFEROL (VIT D3) 1000 UNIT TAB PO SCH (08:11)
[2017-11-02] MEDS: PANTOPRAZOLE SOD 40 MG DELAYED RELEASE TAB PO SCH (08:11)
[2017-11-02] MEDS: POTASSIUM CHLORIDE 10 MEQ CONTROLLED RELEASE TAB PO SCH (08:11)
[2017-11-02] MEDS: FOLIC ACID 1 MG TAB PO SCH (08:12)
[2017-11-02] MEDS: INSULIN ASPART SUPPLEMENTAL SCALE SQ SCH ×2 (08:22→12:11)
[2017-11-02] MEDS: CYANOCOBALAMIN 100 MCG TAB PO SCH (08:25)
[2017-11-02] MEDS ORDERED: PARoxetine HCL 20 MG TAB PO SCH (09:00)
[2017-11-02] MEDS ORDERED: FUROSEMIDE 20 MG/2 ML VIAL IV PUSH ONE (11:30)
--- NOTE | 2017-11-02 11:39 | HHI.PR ---
Subjective Remarks Pt has no new complaints. She was able to eat scrambled eggs and apple juice for breakfast. Objective Vitals Vital Signs Date Time Temp Pulse Resp B/P (MAP) Pulse Ox O2 Delivery O2 Flow Rate FiO2 11/02/17 04:00 99.8 109 22 121/57 (78) 96 11/02/17 00:00 98.2 103 22 110/54 (72) 96 11/01/17 20:00 99.6 104 22 115/57 (76) 96 11/01/17 16:00 98.9 97 17 102/53 (69) 100 11/01/17 16:00 97 11/01/17 15:00 99.0 101 21 103/61 (75) 99 11/01/17 14:33 99.0 97 17 115/49 97 11/01/17 14:01 102 19 115/49 (71) 99 11/01/17 14:00 103 20 99 11/01/17 14:00 102 11/01/17 13:00 97 19 107/58 (74) 99 11/01/17 12:01 99.0 98 15 103/51 (68) 92 11/01/17 12:00 97 16 93 11/01/17 12:00 97 Result Diagram: 11/02/17 0300 11/02/17 0300 Imaging Last Impressions Chest X-Ray 10/30/172227 Signed Impressions: Service Date/Time: Monday, October 30, 2017 22:32 - CONCLUSION: 1. Diffuse increased interstitial markings likely related to underlying interstitial process such as edema. 2. Further alveolar edema or consolidation in the right upper lung. 3. Cardiomegaly. 4. Mild left pleural effusion. Parviz Ch MD Objective Remarks GENERAL: This is a well-nourished, well-developed patient, in no apparent distress. CARDIOVASCULAR: Regular rate and rhythm without murmurs, gallops, or rubs. RESPIRATORY: diffuse b/l crackles GASTROINTESTINAL: Abdomen soft, non-tender, nondistended. Normal active bowel sounds MUSCULOSKELETAL: Extremities without clubbing, cyanosis, or edema. NEURO: Alert & Oriented x3, but confused at times. 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 Dyspnea secondary to severe symptomatic anemia History of left breast cancer status post lumpectomy in 2011 on maintenance therapy with tamoxifen Chronic systolic heart failure, Echo 09/15/17 ejection fraction 45-50%. Mild to moderate aortic valve regurgitation. Moderate to severe tricuspid regurgitation Mild to moderate aortic regurgitation Moderate to severe tricuspid regurgitation Pulmonary HTN Gastritis, esophagitis, 2 nonbleeding shallow clean based ulcers in first part of duodenum (on EGD 09/10/17) CKD 3 Diabetic nephropathy Diabetes mellitus - Pt previously admitted at [place] Aug 2017 for acute on chronic anemia. - Pt underwent endoscopy without identifying the source of bleeding. - Pt transfused 2 units PRBCs 10/31/17 - Pt received IV iron - Pt received additional 1 unit PRBC 11/02/17 - Hg 8.6 (11/02/17) - Pt now in obvious CHF with b/l crackles - obtain CXR - lasix 20mg IV - Case d/w Pt's Soft Crab Shedder Dr. Vieyra (11/11/17) - Case d/w pt's son, Mr. Jonas Altamirano. He reports that Ms. Altamirano has NOT been doing well at home. Pt is essentially [id number]. Pt has been largely bed bound for months. Pt has been eating poorly. - Son does NOT want GI consult or w/u at this time. - Son does NOT want further transfusions - continue PPI - DVT prophylaxis - PT - supportive care - I met with pt and her sons (11/02/17) - pt/sons want hospice - pt/son do NOT want continued hospitalization - transfer to the care center would be appropriate d/t symptom mgmt related to pt's dyspnea, fatigue, and confusion. (2) Iron deficiency anemia ICD Codes: D50.9 - Iron deficiency anemia, unspecified Status: Chronic Plan: - see above (3) CHF (congestive heart failure) ICD Codes: I50.9 - Heart failure, unspecified Status: Chronic Plan: - continue daily lasix - observe for exacerbation with transfusions (4) CKD (chronic kidney disease), stage III ICD Codes: N18.3 - Chronic kidney disease, stage 3 (moderate) Status: Chronic Plan: - observe (5) DM2 (diabetes mellitus, type 2) ICD Codes: E11.9 - Type 2 diabetes mellitus without complications Status: Chronic Plan: - levemir dose reduced d/t hypoglycemia - SSI - observe Problem Qualifiers (1) Iron deficiency anemia: Qualified Codes: D50.8 - Other iron deficiency anemias (2) CHF (congestive heart failure): Qualified Codes: I50.83 - High output heart failure (3) DM2 (diabetes mellitus, type 2): Qualified Codes: E11.8 - Type 2 diabetes mellitus with unspecified complications; Z79.4 - [facility] (current) use of insulin Jude Vazquez DO Nov 02, 2017 11:39
[2017-11-02] MEDS ORDERED: PARO20TA2 PO (11:56)
[2017-11-02] MEDS ORDERED: LEVEMIR SQ (11:56)
[2017-11-02] MEDS: SODIUM CHLORIDE 0.9% FLUSH 10 ML FLUSH IV FLUSH SCH (11:59)
--- NOTE | 2017-11-02 12:31 | RADRPT ---
EXAM DATE/TIME: 11/02/2017 11:46 [facility] COMPARISON: CHEST PA & LAT, October 30, 2017, 22:32. CHEST SINGLE AP, September 15, 2017, 4:20. INDICATIONS : Congestive Heart Failure. Shortness of breath. MEDICAL HISTORY : Congestive heart failure. Hypertension. Gastroesophageal reflux disease. Ulcerative colitis. SURGICAL HISTORY : Abdominal aortic aneurysm repair. Right femoral stent. ENCOUNTER: Subsequent ACUITY: 3 days PAIN SCORE: 0/10 LOCATION: Bilateral chest FINDINGS: Heart size is enlarged. The aorta is calcified. The lungs show a diffuse increase interstitial markin gs. There is apical density seen in the right upper and midlung. Significant effusions are not seen on this AP chest x-ray. CONCLUSION: 1. Worsening edema. 2. Persistent alveolar density in the right midlung. There is a new area of increased density seen in the right upper lung. These could be from superimposed inflammatory/infectious processes. Parviz Ch MD on November 02, 2017 at 12:27 Board Certified Radiologist. This report was verified electronically.
--- NOTE | 2017-11-02 13:50 | PD.PSY.CON ---
Provisional Diagnosis Admission Date Oct 31, 2017 at 00:48 Sabin I. Adjustment disorder with depressed mood, history of anxiety and depression Sabin II. Deferred Sabin III. Diabetes, Telangiectasia History of Present Illness Service Psychiatry Consult Requested By Medical team Reason for Consult depression Primary Care Physician Bobby Gomez MD HPI The patient is pleasant 77-year-old woman, domiciled with her son in [facility], mother of 2 kids, , with psychiatric history of depression, anxiety, no previous psychiatric hospitalizations, no previous suicidal attempts , she has been medicated with Xanax 1 mg twice daily, Paxil 30 mg daily prescribed by PCP, with extensive medical history of hereditary telangiectasia, CHF, DM, HTN, HLD, PAD, breast cancer, CKD stage III, Diabetic nephropathy who presents to [facility] with 2 day history of shortness of breath and lower extremity edema. Hospitalized due to medical decompensation, acute worsening of chronic iron deficiency anemia - chronic loss likely due to telangiectasia. Dyspnea secondary to severe symptomatic anemia. Patient consulted to psychiatry due to depression. On psychiatric evaluation today I find a patient who is calm, cooperative, pleasant. Patient is in a good spirits. Reports being in a good mood today. She says that she feels much better. Described his mood as "ok". States mood is8/10.. She reports that she does want to go home, time is tired to be in the hospital. Patient reports that her life is about her kids and her grandkids. She reports herself as a positive person who enjoys her family. She denies anhedonia, denies hopelessness, denies helplessness, denies worthlessness, denies suicidal and homicidal ideation, denies visual and auditory hallucinations. Patient reports good sleep, good level of energy, good appetite. Repeatedly states "I just need to go home to be completely happy". The patient is fully oriented 3, no attention deficit, no fluctuation of consciousness, no gross cognitive impairment present. She denies the use of illegal drugs and alcohol. The patient reports that she has been stable with Xanax 1 mg twice daily and Paxil 30 minute, she has been compliant with medications, no significant side effects Review of Systems Constitutional: DENIES: Diaphoretic episodes, Fatigue, Fever, Weight gain, Weight loss, Chills, Dizziness, Change in appetite, Night Sweats Endocrine: DENIES: Abnorml menstrual pattern, Heat/cold intolerance, Polydipsia , Polyuria, Polyphagia Eyes: DENIES: Blurred vision, Diplopia, Eye inflammation, Eye pain, Vision loss , Photosensitivity, Double Vision Ears, nose, mouth, throat: DENIES: Tinnitus, Hearing loss, Vertigo, Nasal discharge, Oral lesions, Throat pain, Hoarseness, Ear Pain, Running Nose, Epistaxis, Sinus Pain, Toothache, Odynophagia Respiratory: DENIES: Apneas, Cough, Snoring, Wheezing, Hemoptysis, Sputum production, Shortness of breath Cardiovascular: DENIES: Chest pain, Palpitations, Syncope, Dyspnea on Exertion , PND, Lower Extremity Edema, Orthopnea, Claudication Gastrointestinal: DENIES: Abdominal pain, Black stools, Bloody stools, Constipation, Diarrhea, Nausea, Vomiting, Difficulty Swallowing, Anorexia Genitourinary: DENIES: Abnormal vaginal bleeding, Dysmenorrhea, Dyspareunia, Sexual dysfunction, Urinary frequency, Urinary incontinence, Urgency, Hematuria , Dysuria, Nocturia, Vaginal discharge Musculoskeletal: DENIES: Joint pain, Muscle aches, Stiffness, Joint Swelling, Back pain, Neck pain Integumentary: DENIES: Abnormal pigmentation, Pruritus, Rash, Nail changes, Breast masses, Breast skin changes, Nipple discharge Hematologic/lymphatic: DENIES: Bruising, Lymphadenopathy Immunologic/allergic: DENIES: Eczema, Urticaria Psychiatric: DENIES: Anxiety, Confusion, Mood changes, Depression, Hallucinations, Agitation, Suicidal Ideation, Homicidal Ideation, Delusions Past Family Social History Coded Allergies: aspirin (Unverified Adverse Reaction, Severe, GI BLEEDING, 10/30/17) diclofenac (Unverified Adverse Reaction, Severe, GI BLEED, 10/30/17) duloxetine (Unverified Adverse Reaction, Severe, SUICIDAL THOUGHTS, 10/30/17 ) etodolac (Unverified Adverse Reaction, Severe, GI BLEED, 10/30/17) flurbiprofen (Unverified Adverse Reaction, Severe, GI BLEED, 10/30/17) ibuprofen (Unverified Adverse Reaction, Severe, GI BLEED, 10/30/17) indomethacin (Unverified Adverse Reaction, Severe, GI BLEED, 10/30/17) ketoprofen (Unverified Adverse Reaction, Severe, GI BLEED, 10/30/17) ketorolac (Unverified Adverse Reaction, Severe, GI BLEED, 10/30/17) naproxen (Unverified Adverse Reaction, Severe, GI BLEED, 10/30/17) oxaprozin (Unverified Adverse Reaction, Severe, GI BLEED, 10/30/17) Active Scripts Potassium Chloride ER (Klor-Con 10) 10 Meq Tab, 30 MEQ PO DAILY for chf MDD 30 for 10 Days, #30 TAB Prov:Edwar Hughes MD 09/21/17 Lorazepam (Ativan) 0.5 Mg Tab, 0.5 MG PO Q8H Y for anxiety for 10 Days, #30 TAB Prov:Edwar Hughes MD 09/21/17 Cholecalciferol (Vitamin D-1000) 1,000 Unit Tab, 5000 UNITS PO DAILY for Nutritional Supplement, #1 BOTTLE 0 Refills Prov:Eduardo Main MD PhD 09/14/17 Reported Medications Furosemide (Furosemide) 40 Mg Tab, 40 MG PO DAILY, #30 TAB 0 Refills 10/30/17 Hydrocodone-Acetaminophen (Hydrocodone-Acetaminophen) 7.5 Mg-325 Mg Tab, 1 TAB PO Q4H Y for PAIN, TAB 0 Refills 09/07/17 Insulin Detemir Inj (Levemir Inj) 1,000 unit/ 10 ML Vial, 20 UNITS SQ HS for Blood Sugar Management, VIAL 0 Refills Do not mix with any other Insulin. 09/07/17 Tamoxifen (Tamoxifen) 10 Mg Tab, 5 MG PO BID for Chemotherapy Management, #60 TAB 0 Refills 09/07/17 Glipizide (Glipizide) 10 Mg Tab, 10 MG PO BIDAC for Blood Sugar Management, #60 TAB 0 Refills Take 30 minutes before a meal 09/07/17 Paroxetine (Paroxetine) 20 Mg Tab, 20 MG PO DAILY, #30 TAB 0 Refills 09/07/17 Discontinued Reported Medications Oxybutynin (Ditropan) 5 Mg Tab, 5 MG PO DAILY for Urinary Symptom Managemen, # 60 TAB 0 Refills 09/07/17 Discontinued Scripts Lisinopril (Lisinopril) 5 Mg Tab, 5 MG PO HS for Blood Pressure Management for 10 Days, #30 TAB 0 Refills Prov:Edwar Hughes MD 09/21/17 [Furosemide Inj] 10 MG/ML INJ No Conflict Check, 20 MG IV PUSH DAILY for chf for 2 Days, #2 INJECTION Prov:Edwar Hughes MD 09/21/17 Furosemide (Furosemide) 20 Mg Tab, 20 MG PO DAILY for chf MDD 20, #10 TAB Prov:Edwar Hughes MD 09/21/17 Current Medications Medications (Trade) Dose Ordered Sig/Fatoumata Route Start Time Stop Time Status Last Admin Potassium Chloride 100 ml @ 50 mls/hr Q2H PRN IV 10/31/17 02:45 Potassium Chloride 100 ml @ 50 mls/hr Q2H PRN IV 10/31/17 02:45 (K-Lyte Cl Eff) 50 meq UNSCH PRN PO 10/31/17 02:45 10/31/17 14:21 Potassium Chloride 100 ml @ 25 mls/hr UNSCH PRN IV 10/31/17 02:45 Potassium Chloride 100 ml @ 50 mls/hr Q2H PRN IV 10/31/17 02:45 11/01/17 05:41 Magnesium Sulfate 4 gm/Sodium Chloride 100 ml @ 50 mls/hr UNSCH PRN IV 10/31/17 02:45 (Mag-Ox) 800 mg UNSCH PRN PO 10/31/17 02:45 Magnesium Sulfate 2 gm/Sodium Chloride 100 ml @ 50 mls/hr UNSCH PRN IV 10/31/17 02:45 (K-Phos) 2,000 mg Q4H PRN PO 10/31/17 02:45 Sodium Phosphate 30 mmol/Sodium Chloride 250 ml @ 42 mls/hr UNSCH PRN IV 10/31/17 02:45 (K-Phos) 2,000 mg UNSCH PRN PO/TUBE 10/31/17 02:45 Potassium Phosphate 30 mmol/ Sodium Chloride 260 ml @ 42 mls/hr UNSCH PRN IV 10/31/17 02:45 (NS Flush) 2 ml UNSCH PRN IV FLUSH 10/31/17 02:45 (NS Flush) 2 ml BID IV FLUSH 10/31/17 09:00 11/02/17 11:59 (Tylenol) 650 mg Q6H PRN PO 10/31/17 02:45 (Protonix) 40 mg DAILY PO 10/31/17 09:00 11/02/17 08:11 (Zofran Inj) 4 mg Q6H PRN IV PUSH 10/31/17 02:45 (Albuterol Neb) 2.5 mg Q2HR NEB PRN INH 10/31/17 02:45 Miscellaneous Information 1 Q361D XX 10/31/17 02:45 (Chlorhexidine 2% Cloth) 3 pack Taper DAILY@04 TOP 10/31/17 04:00 10/27/18 03:59 (Chlorhexidine 2% Cloth) 3 pack UNSCH PRN TOP 10/31/17 02:45 (Lilia-Colace) 1 tab BID PO 10/31/17 09:00 11/02/17 08:10 (Milk Of Magnesia Liq) 30 ml Q12H PRN PO 10/31/17 02:45 (Senokot) 17.2 mg Q12H PRN PO 10/31/17 02:45 (Dulcolax Supp) 10 mg DAILY PRN RECTAL 10/31/17 02:45 (Lactulose Liq) 30 ml DAILY PRN PO 10/31/17 02:45 (Lasix) 40 mg DAILY PO 11/01/17 09:00 11/02/17 08:10 (KCl) 40 meq DAILY PO 10/31/17 09:00 11/02/17 08:11 (Vitamin B12) 100 mcg DAILY PO 10/31/17 09:00 11/01/17 09:20 (Folate) 1 mg DAILY PO 10/31/17 09:00 11/02/17 08:12 (Vitamin D3) 5,000 units DAILY PO 10/31/17 09:00 11/02/17 08:11 (Frisco 7.5-325 Mg) 1 tab Q4H PRN PO 10/31/17 07:00 11/02/17 06:26 (Ativan) 0.5 mg Q8H PRN PO 10/31/17 07:00 (Nolvadex) 5 mg BID PO 10/31/17 09:00 Future Hold (NovoLOG SUPPLEMENTAL SCALE) 1 ACHS SLIDING SCALE SQ 10/31/17 08:00 11/02/17 12:11 (D50w (Vial) Inj) 50 ml UNSCH PRN IV PUSH 11/01/17 05:30 11/01/17 12:20 (Glucagon Inj) 1 mg UNSCH PRN OTHER 11/01/17 05:30 (Paxil) 30 mg DAILY PO 11/02/17 09:00 11/02/17 08:13 (Levemir Inj) 15 units HS SQ 11/02/17 21:00 Family Psych History No family psychiatric history Social History Patient was born and raised in [place], she lives in [facility] with her son, she has 2 kids, she is , her highest level of education is a bachelor Physical Exam No tremors, no EPS, no withdrawal Vital Signs Vital Signs Date Time Temp Pulse Resp B/P (MAP) Pulse Ox O2 Delivery O2 Flow Rate FiO2 11/02/17 04:00 99.8 109 22 121/57 (78) 96 11/01/17 02:26 Nasal Cannula 10/31/17 08:21 2.00 I/O 11/02/17 11/02/17 11/03/17 08:00 16:00 00:00 Intake Total 360 ml Output Total 950 ml Balance -590 ml Lab Results Test 11/02/17 03:00 White Blood Count 13.1 TH/MM3 Red Blood Count 3.42 MIL/MM3 Hemoglobin 8.6 GM/DL Hematocrit 28.3 % Mean Corpuscular Volume 82.6 FL Mean Corpuscular Hemoglobin 25.1 PG Mean Corpuscular Hemoglobin Concent 30.4 % Red Cell Distribution Width 20.0 % Platelet Count 238 TH/MM3 Mean Platelet Volume 11.0 FL Neutrophils (%) (Auto) 80.4 % Lymphocytes (%) (Auto) 9.1 % Monocytes (%) (Auto) 7.3 % Eosinophils (%) (Auto) 2.3 % Basophils (%) (Auto) 0.9 % Neutrophils # (Auto) 10.6 TH/MM3 Lymphocytes # (Auto) 1.2 TH/MM3 Monocytes # (Auto) 1.0 TH/MM3 Eosinophils # (Auto) 0.3 TH/MM3 Basophils # (Auto) 0.1 TH/MM3 CBC Comment AUTO DIFF Differential Total Cells Counted 100 Neutrophils % (Manual) 84 % Band Neutrophils % 2 % Lymphocytes % 8 % Monocytes % 1 % Eosinophils % 4 % Neutrophils # (Manual) 11.4 TH/MM3 Myelocytes 1 % Nucleated Red Blood Cells 16 /100 WBC Differential Comment FINAL DIFF MANUAL Platelet Estimate NORMAL Platelet Morphology Comment ENLARGED Target Cells 1+ Tear Drop Cells 1+ Ovalocytes 2+ Blood Urea Nitrogen 17 MG/DL Creatinine 0.98 MG/DL Random Glucose 303 MG/DL Calcium Level 8.2 MG/DL Magnesium Level 1.6 MG/DL Sodium Level 133 MEQ/L Potassium Level 3.6 MEQ/L Chloride Level 98 MEQ/L Carbon Dioxide Level 24.8 MEQ/L Anion Gap 10 MEQ/L Estimat Glomerular Filtration Rate 55 ML/MIN Mental Status Examination Appearance: Appropriate Consciousness: Alert Orientation: x4 Motor Activity: Normal gait Speech: Unremarkable Language: Adequate Fund of Knowledge: Adequate Attention and Concentration: Adequate Memory: Unremarkable Mood: Appropriate Affect: Appropriate Thought Process & Associations: Intact Thought Content: Appropriate Hallucination Type: None Delusion Type: None Suicidal Ideation: No Suicidal Plan: No Suicidal Intention: No Homicidal Ideation: No Homicidal Plan: No Homicidal Intention: No Insight: Adequate Judgment: Adequate Assessment & Plan Problem List: (1) Adjustment disorder with depressed mood ICD Codes: F43.21 - Adjustment disorder with depressed mood Assessment & Plan: On psychiatric evaluation today I find a patient that is calm, cooperative, pleasant. During the evaluation the patient is in a good spirits, positive about her general psychiatric condition. She reports good mood, 8/10, denies anhedonia, denies hopelessness, denies helplessness, denies difficulty with his sleep, appetite or energy, she denies suicidal and homicidal ideation, she denies visual and auditory hallucinations. Very well identifiable protective factors of depression are present such as family support , spirituality, compliant with psychotropics for depression. The patient does not meet criteria for involuntary psychiatric admission. Continue paroxetine 30 mg, Xanax 1 mg twice daily for depression and anxiety. Brief supportive psychotherapy, motivation and psychoeducation provided. Consult highly appreciated. Assessment & Plan Estimated LOS: Femi Coyle MD Nov 02, 2017 13:50
[2017-11-02] MEDS ORDERED: INSULIN DETEMIR 100 UNITS/ML VIAL SQ SCH (21:00)
== END 2017-11-02 16:09 | disposition hospice, inpatient (51) | DRG 300 ==
LOC: PHED 21:11 → PHEDA 10-31 00:48 → HIMW 10-31 01:45 → N07B 11-01 17:02
PROVIDERS: ADMIT Hospitalist; ATTEND Hospitalist
PROC: 30233N1 Transfusion of Nonautologous Red Blood Cells into Peripheral Vein, Percutaneous Approach (ICD-10-PCS; principal; 2017-10-30)
PROC: 0T9B70Z Drainage of Bladder with Drainage Device, Via Natural or Artificial Opening (ICD-10-PCS; 2017-10-30)
DX: I78.0 Hereditary hemorrhagic telangiectasia (principal); D50.0 Iron deficiency anemia secondary to blood loss (chronic); I13.0 Hypertensive heart and chronic kidney disease with heart failure and stage 1 through stage 4 chronic kidney disease, or unspecified chronic kidney disease; I50.83 High output heart failure; E11.21 Type 2 diabetes mellitus with diabetic nephropathy; E11.51 Type 2 diabetes mellitus with diabetic peripheral angiopathy without gangrene; I50.22 Chronic systolic (congestive) heart failure; D57.1 Sickle-cell disease without crisis; I25.2 Old myocardial infarction; I25.10 Atherosclerotic heart disease of native coronary artery without angina pectoris; M19.90 Unspecified osteoarthritis, unspecified site; F41.9 Anxiety disorder, unspecified; F43.21 Adjustment disorder with depressed mood; E78.5 Hyperlipidemia, unspecified; R00.0 Tachycardia, unspecified; N18.3 Chronic kidney disease, stage 3 (moderate); E11.22 Type 2 diabetes mellitus with diabetic chronic kidney disease; E87.6 Hypokalemia; I27.20 Pulmonary hypertension, unspecified; Z87.11 Personal history of peptic ulcer disease; K21.0 Gastro-esophageal reflux disease with esophagitis; K64.4 Residual hemorrhoidal skin tags; K64.8 Other hemorrhoids; M79.7 Fibromyalgia; M10.9 Gout, unspecified; H35.30 Unspecified macular degeneration; Z80.1 Family history of malignant neoplasm of trachea, bronchus and lung; Z87.891 Personal history of nicotine dependence; I08.2 Rheumatic disorders of both aortic and tricuspid valves; E11.649 Type 2 diabetes mellitus with hypoglycemia without coma; Z79.4 Long term (current) use of insulin; Z90.710 Acquired absence of both cervix and uterus; Z96.1 Presence of intraocular lens; Z85.3 Personal history of malignant neoplasm of breast
CPT/HCPCS: 36430; 71045; 71046; 80048; 80053; 81001; 82550; 82728; 82805; 82947; 82948; 83540; 83550; 83615; 83735; 83880; 84132; 84484; 85007; 85014; 85018; 85027; 85044; 85610; 85730; 86850; 86900; 86901; 86920; 86922; 87641; 93005; 96374; J1756; J1815; J1940; J3480; J7050; P9016